=== PATIENT | female | born 1985 | race Asian ===

== ENCOUNTER → 2016-07-27 | Outpatient (CLI) | payer OTHER ==
[~2016-07-27] MED LIST: CEPH500C PO; MULT-506 PO
[2016-07-27 17:37] LABS: BASO % 0.3 %; BASO ABS # 0.03 K/uL (0-0.2); COMPLETE YES; EOS % 5.4 %; HEMATOCRIT 35.9 % (37-47); IG% 0.3 %; LYMPH % 27.7 %; LYMPH ABS # 2.42 K/uL (1.2-3.4); MEAN CELL VOLUME 74.6 fL (80-100); MEAN CORPUSCULAR HEMOGLOBIN 23.9 pg (25-34); MEAN PLATELET VOLUME 10.1 fL (7.4-10.4); MONO % 6.5 %; NEUT % 59.8 %; PLATELET COUNT 323 K/uL (130-400); RED BLOOD COUNT 4.81 M/uL (4.2-5.4); WHITE BLOOD COUNT 8.74 K/uL (4.8-10.8)
[2016-07-27 18:10] LABS: ALT/SGPT 21 U/L (12-78); BLOOD UREA NITROGEN 11 mg/dl (7-18); BUN/CREATININE RATIO 14.7 (10-20); CALCIUM 10.3 mg/dl (8.5-10.1); CARBON DIOXIDE 25 mmol/L (21-32); CHLORIDE 107 mmol/L (98-107); CREATININE 0.74 mg/dl (0.60-1.20); GLUCOSE 84 mg/dl (70-99); SODIUM 141 mmol/L (136-145)
[2016-07-27 18:13] LABS: ALKALINE PHOSPHATASE 112 U/L (45-117); AST/SGOT 15 U/L (15-37)
== END | disposition home or self-care (01) ==
LOC: EDBD 16:39 → C.LAB 16:39
PROVIDERS: ATTEND Nurse Practitioner Adult Health
DX: R10.2 Pelvic and perineal pain (principal)

== ENCOUNTER → 2016-08-16 | Outpatient (CLI) | payer OTHER ==
[2016-08-16 16:54] LABS: URINE APPEARANCE CLEAR (CLEAR); URINE BILIRUBIN NEG (NEG); URINE COLOR YELLOW; URINE EPITHELIAL CELL AUTO >30 /lpf (0-5); URINE NITRITE NEG (NEG); URINE PH 6.5 (4.5-7.5); URINE SPECIFIC GRAVITY 1.019 (1.000-1.030); UROBILINOGEN NEG (NEG)
[2016-08-16 16:58] LABS: MANUAL MICROSCOPIC REQUIRED? NO; REVIEW REQ? NO
== END | disposition home or self-care (01) ==
LOC: C.LAB1850 15:34
PROVIDERS: ATTEND Nurse Practitioner Adult Health
DX: R39.9 Unspecified symptoms and signs involving the genitourinary system (principal)

== ENCOUNTER → 2016-08-30 | Outpatient (CLI) | payer OTHER ==
[2016-08-30 15:42] LABS: URINE APPEARANCE CLEAR (CLEAR); URINE BILIRUBIN NEG (NEG); URINE COLOR YELLOW; URINE NITRITE NEG (NEG); URINE PH 6.5 (4.5-7.5); URINE SPECIFIC GRAVITY 1.017 (1.000-1.030); UROBILINOGEN NEG (NEG)
[2016-08-30 15:45] LABS: MANUAL MICROSCOPIC REQUIRED? YES; REVIEW REQ? NO
[2016-08-30 16:01] LABS: URINE BACTERIA 1+ (NEG); URINE RBC 0-4 /hpf (0-4)
== END | disposition home or self-care (01) ==
LOC: C.LAB1850 14:08
PROVIDERS: ATTEND Nurse Practitioner Adult Health
DX: R39.9 Unspecified symptoms and signs involving the genitourinary system (principal)

== ENCOUNTER → 2016-09-02 | Outpatient (CLI) | payer OTHER | END | disposition home or self-care (01) | LOC: C.LAB1850 10:53 | PROVIDERS: ATTEND Obstetrics & Gynecology | DX: N91.2 Amenorrhea, unspecified (principal) ==

== ENCOUNTER → 2016-09-23 | Outpatient (CLI) | payer OTHER ==
[2016-09-23 16:20] LABS: URINE APPEARANCE CLEAR (CLEAR); URINE BILIRUBIN NEG (NEG); URINE COLOR DK YELLOW; URINE EPITHELIAL CELL AUTO >30 /lpf (0-5); URINE NITRITE NEG (NEG); URINE PH 5.5 (4.5-7.5); URINE SPECIFIC GRAVITY 1.032 (1.000-1.030); UROBILINOGEN NEG (NEG)
[2016-09-23 16:28] LABS: MANUAL MICROSCOPIC REQUIRED? NO; REVIEW REQ? NO
[2016-09-26 23:56] LABS: CHLAMYDIA TRACH RNA*** NOT DETECTED (NOT DETECTED); GC (NEIS GONORRHOEAE)RNA** NOT DETECTED (NOT DETECTED)
== END | disposition home or self-care (01) ==
LOC: C.LABSPEC 15:47
PROVIDERS: ATTEND Obstetrics & Gynecology
DX: Z34.01 Encounter for supervision of normal first pregnancy, first trimester (principal)

== ENCOUNTER → 2016-09-23 | Outpatient (CLI) | payer OTHER ==
[2016-09-23 14:42] LABS: BASO % 0.2 %; BASO ABS # 0.02 K/uL (0-0.2); COMPLETE YES; EOS % 3.7 %; HEMATOCRIT 39.1 % (37-47); IG% 0.2 %; LYMPH % 17.5 %; LYMPH ABS # 1.67 K/uL (1.2-3.4); MEAN CELL VOLUME 75.9 fL (80-100); MEAN CORPUSCULAR HEMOGLOBIN 25.2 pg (25-34); MEAN CORPUSCULAR HGB CONC 33.2 g/dl (32-36); MEAN PLATELET VOLUME 10.8 fL (7.4-10.4); MONO % 4.4 %; PLATELET COUNT 282 K/uL (130-400); RED BLOOD COUNT 5.15 M/uL (4.2-5.4); WHITE BLOOD COUNT 9.55 K/uL (4.8-10.8)
== END | disposition home or self-care (01) ==
LOC: C.LAB1850 12:57
PROVIDERS: ATTEND Obstetrics & Gynecology
DX: Z34.01 Encounter for supervision of normal first pregnancy, first trimester (principal)

== ENCOUNTER → 2016-10-21 | Outpatient (CLI) | payer OTHER | END | disposition home or self-care (01) | LOC: C.LABSPEC 17:22 | PROVIDERS: ATTEND Obstetrics & Gynecology | DX: Z34.01 Encounter for supervision of normal first pregnancy, first trimester (principal) ==

== ENCOUNTER → 2016-11-18 | Outpatient (CLI) | payer OTHER ==
[2016-11-18 17:12] LABS: GTGD 50 Grams
[2016-11-21 14:24] LABS: AFP CONCENTRATION 51.9 NG/ML; AFP MULTIPLE OF MEDIAN 1.58; AFPTS GESTATIONAL AGE 16.4 WEEKS; AFPTS INSULIN DEP DIABETIC? NO; AFPTS MATERNAL WT 164 LBS; ALPHA-FETOPROTEIN RACE OTHER=O; ESTRIOL MULTIPLE OF MEDIAN 0.87; HISTORY OF NTD NO; INHIBIN A 322 PG/ML; INHIBIN A MOM 1.98; REPEAT SAMPLE? NO
== END | disposition home or self-care (01) ==
LOC: C.LAB1850 15:26
PROVIDERS: ATTEND Obstetrics & Gynecology
DX: Z34.02 Encounter for supervision of normal first pregnancy, second trimester (principal)

== ENCOUNTER 2016-11-27 20:32 | Emergency (ER) | payer OTHER ==
[~2016-11-27] VITALS: Ht 165.1 cm; Wt 75.5 kg
[2016-11-27 20:48] VITALS: TEMP 37; Ht 165.1 cm; Wt 75.5 kg
[2016-11-27] MEDS ORDERED: SODIUM CHLORIDE 0.9% 500ML 500 ML IV STA (20:55)
[2016-11-27] MEDS ORDERED: MoRPHine SULFATE 4 MG/ML 1 ML CARP\\VIAL IV STA (20:55)
[2016-11-27] MEDS ORDERED: SODIUM CHLORIDE 0.9% 1000ML 1,000 ML IV STA (20:55)
[2016-11-27] MEDS ORDERED: ONDANSETRON INJ 2 MG/ML 2 ML VIAL IV STA (20:55)
--- NOTE | 2016-11-27 21:07 | EMERGENCY ROOM VISIT NOTE ---
History Report prepared by Yemiibosman: Theo Velazquez Under the Supervision of: Dr. Alysia Gonzalez M.D. First contact with patient: 20:54 Chief Complaint: ABDOMINAL PAIN Stated Complaint: ABD PAIN History of Present Illness The patient is a 30 year old gravid female who presents to the Emergency Room with complaints of persistent abdominal pain since yesterday. The pain moves around between her bilateral lower abdomen and occasionally to the upper abdomen. Pain is rated 8/10 in severity. She has also experienced nausea and vomiting. The patient denies fevers, chest pain, shortness of breath, pain with urination, or vaginal bleeding or discharge. The patient is 4 months , per . She saw her Ob / Label Tacker last month and everything was okay with the . The was in contact with the Ob / Label Tacker over the phone today, who said that they could schedule an appointment for tomorrow or come to the ED tonight. Per , the patient does not drink much water because it makes her vomit. Source of History: patient, spouse/significant other Onset: yesterday Position: abdomen Symptom Intensity: 8/10 Timing: other (persistent) Associated Symptoms: + nausea, + vomiting, No fevers, No chest pain, No SOB , No urinary symptoms Review of Systems See HPI for pertinent positives & negatives. A total of 10 systems reviewed and were otherwise negative. Past Medical & Surgical Medical Problems: (1) Pelvic And Perineal Pain (2) Unsp Symptoms And Signs Involving The Genitourinary System Social History Smoking Status: Never Smoker Marital Status: Housing Status: lives with family Occupation Status: other (housewife) Current/Historical Medications Scheduled Cephalexin Monohydrate (Keflex), 500 MG PO QID Multivitamin (Multivitamin), 1 TAB PO DAILY Allergies Coded Allergies: No Known Allergies (Unverified , 11/27/16) Physical Exam Vital Signs Date Time Temp Pulse Resp B/P (MAP) Pulse Ox O2 Delivery O2 Flow Rate FiO2 11/27/16 23:38 72 18 125/89 98 11/27/16 21:29 93 11/27/16 20:48 37.0 78 16 133/82 100 Room Air Physical Exam Vital signs reviewed. General: Well-appearing female, in no significant distress. HEENT: No scleral icterus, PERRLA, neck supple. Atraumatic. Cardiovascular: Regular rate and rhythm, no extra sounds. Pulmonary: Clear to auscultation bilaterally, normal work of breathing. Abdomen: Obese, suprapubic fullness. Mild right CVA tenderness. Musculoskeletal: Atraumatic, no peripheral edema. Neurologic: Patient awake alert and oriented x 3 Skin: Warm, dry, no rash Medical Decision & Procedures ER Provider Diagnostic Interpretation: Radiology results as stated below per my review and radiologist interpretation: ULTRASOUND LIMITED CLINICAL HISTORY: Generalized abdominal pain. Assess viability. COMPARISON STUDY: No priors. FINDINGS: Real-time, grayscale, and color Doppler transabdominal sonography of the fetus and gravid uterus is performed to assess viability. There is a single live uterine gestation with an estimated heart rate of 143 bpm. The cervix appears closed. The placenta is anterior and normal in appearance. The femoral length measures 2.47 cm, corresponding to an estimated age of 17 weeks 3 days. The amniotic fluid volume is grossly normal. The ovaries were not visualized. IMPRESSION: 1. There is a single live intrauterine gestation with an estimated age of 17 weeks 3 days by femoral length measurement. 2. Note that this does not constitute a dedicated anatomic scan. Follow-up with the patient's snowblower mechanic is recommended. Electronically signed by: Waqas Matthews M.D. 11/27/2016 11:02 PM Dictated Date/Time: 11/27/2016 10:59 PM Laboratory Results 11/27/16 21:15 Red Blood Count 4.36, Mean Corpuscular Volume 78.7, Mean Corpuscular Hemoglobin 26.1, Mean Corpuscular Hemoglobin Concent 33.2, Mean Platelet Volume 9.3, Neutrophils (%) (Auto) 72.3, Lymphocytes (%) (Auto) 17.1, Monocytes (%) (Auto) 6.0, Eosinophils (%) (Auto) 4.0, Basophils (%) (Auto) 0.1, Neutrophils # (Auto) 7.87, Lymphocytes # (Auto) 1.86, Monocytes # (Auto) 0.65, Eosinophils # (Auto) 0.44, Basophils # (Auto) 0.01 11/27/16 21:15 Test 11/27/16 21:08 11/27/16 21:15 Urine Color YELLOW Urine Appearance CLEAR (CLEAR) Urine pH 7.0 (4.5-7.5) Urine Specific Alloway 1.009 (1.000-1.030) Urine Protein NEG (NEG) Urine Glucose (UA) NEG (NEG) Urine Ketones NEG (NEG) Urine Occult Blood NEG (NEG) Urine Nitrite NEG (NEG) Urine Bilirubin NEG (NEG) Urine Urobilinogen NEG (NEG) Urine Leukocyte Esterase LARGE (NEG) Urine WBC (Auto) 10-30 /hpf (0-5) Urine RBC (Auto) 0-4 /hpf (0-4) Urine Hyaline Casts (Auto) 1-5 /lpf (0-5) Urine Epithelial Cells (Auto) >30 /lpf (0-5) Urine Bacteria (Auto) 1+ (NEG) Urine Test POS (NEG) White Blood Count 10.88 K/uL (4.8-10.8) Red Blood Count 4.36 M/uL (4.2-5.4) Hemoglobin 11.4 g/dL (12.0-16.0) Hematocrit 34.3 % (37-47) Mean Corpuscular Volume 78.7 fL (80-100) Mean Corpuscular Hemoglobin 26.1 pg (25-34) Mean Corpuscular Hemoglobin Concent 33.2 g/dl (32-36) Platelet Count 195 K/uL (130-400) Mean Platelet Volume 9.3 fL (7.4-10.4) Neutrophils (%) (Auto) 72.3 % Lymphocytes (%) (Auto) 17.1 % Monocytes (%) (Auto) 6.0 % Eosinophils (%) (Auto) 4.0 % Basophils (%) (Auto) 0.1 % Neutrophils # (Auto) 7.87 K/uL (1.4-6.5) Lymphocytes # (Auto) 1.86 K/uL (1.2-3.4) Monocytes # (Auto) 0.65 K/uL (0.11-0.59) Eosinophils # (Auto) 0.44 K/uL (0-0.5) Basophils # (Auto) 0.01 K/uL (0-0.2) RDW Standard Deviation 45.9 fL (36.4-46.3) RDW Coefficient of Variation 16.1 % (11.5-14.5) Immature Granulocyte % (Auto) 0.5 % Immature Granulocyte # (Auto) 0.05 K/uL (0.00-0.02) Anion Gap 9.0 mmol/L (3-11) Est Creatinine Clear Calc Drug Dose 149.4 ml/min Estimated GFR () 146.2 Estimated GFR (Non- 126.2 BUN/Creatinine Ratio 7.7 (10-20) Calcium Level 10.4 mg/dl (8.5-10.1) Total Bilirubin 0.4 mg/dl (0.2-1) Direct Bilirubin < 0.1 mg/dl (0-0.2) Aspartate Amino Transf (AST/SGOT) 25 U/L (15-37) Alanine Aminotransferase (ALT/SGPT) 42 U/L (12-78) Alkaline Phosphatase 81 U/L (45-117) Total Protein 7.2 gm/dl (6.4-8.2) Albumin 3.2 gm/dl (3.4-5.0) Lipase 178 U/L (73-393) Laboratory results per my review. Medications Administered Medications (Trade) Dose Ordered Sig/Lucio Route Start Time Stop Time Status Last Admin Dose Admin Sodium Chloride 1,000 ml @ 125 mls/hr Q8H STAT IV 11/27/16 20:55 11/28/16 00:38 DC 11/27/16 21:34 125 MLS/HR Sodium Chloride 500 ml @ 999 mls/hr Q31M STAT IV 11/27/16 20:55 11/27/16 21:25 DC 11/27/16 20:55 999 MLS/HR Ondansetron HCl (Zofran Inj) 4 mg NOW STAT IV 11/27/16 20:55 11/27/16 20:57 DC 11/27/16 21:32 4 MG Famotidine (Pepcid Tab) 20 mg NOW ONCE PO 11/27/16 21:15 11/27/16 21:16 DC 11/27/16 21:32 20 MG Cephalexin Monohydrate (Keflex Cap) 500 mg NOW ONCE PO 11/27/16 23:15 11/27/16 23:16 DC 11/27/16 23:37 500 MG ED Course 2049: Past medical records reviewed. The patient was evaluated in room B5. A complete history and physical examination was performed. 2054: Zofran 5 mg IV, Morphine Sulfate 4 mg IV, NSS 500 ml @ 999 mls/hr, NSS 1000 ml @ 125 mls/hr. 2115: Pepcid 20 mg PO, 2315: Upon reevaluation, the patient appeared to have improvement of her symptoms. I discussed findings with her and the . She verbalized agreement of the treatment plan. She was discharged home. Medical Decision Differential Diagnosis: UTI, pyelonephritis, kidney stone, threatened , ovarian cyst, gastritis , peptic ulcer disease, pancreatitis, anxiety. Blood Pressure Screening: Patient was found to have a slightly elevated blood pressure due to circumstances. I do not believe that the patient requires hypertension monitoring. Medication Reconciliation: I attest that I have personally reviewed the patient' s current medication list. This pt was evaluated and appeared to be in no distress. IV access was obtained and lab work was drawn. Pt was placed on the director of cardiac rehabilitation. IVF were initiated. US of fetus reveals a viable IUP at 17 weeks. UA is questionable for infection. Pt was given Po pepcid, zofran and keflex. She is comfortable with plan for close f/u with OBGYN. She will return to the ED for worsening of symptoms or any medical concerns. Impression Primary Impression: UTI (urinary tract infection) Additional Impression: Second trimester Scribe Attestation The scribe's documentation has been prepared under my direction and personally reviewed by me in its entirety. I confirm that the note above accurately reflects all work, treatment, procedures, and medical decision making performed by me. Departure Information Dispostion Home / Self-Care Prescriptions Cephalexin Monohydrate (Keflex) 500 Mg Cap 500 MG PO QID, #28 CAP Prov: Alysia Gonzalez M.D. 11/27/16 Referrals No Doctor, Assigned (PCP) Forms HOME CARE DOCUMENTATION FORM, IMPORTANT VISIT INFORMATION Patient Instructions My [facility] Additional Instructions Diagnosis: UTI and second trimester . Keflex 500 mg 3 times a day for 7 days. Drink plenty of clear fluids. Pepcid 20 mg twice daily as needed for gastritis. Over the counter at the pharmacy. Follow-up with SENIOR ENGINEERING ASSOCIATE this week for reevaluation if symptoms persist. Tylenol 650 mA every 6 hours as needed for pain. Return to the emergency department for worsening of symptoms or any medical concerns. Problem Qualifiers Primary Impression: UTI (urinary tract infection)
[2016-11-27] MEDS ORDERED: FAMOTIDINE 20 MG TAB PO ONE (21:15)
[2016-11-27 21:30] LABS: BASO % 0.1 %; BASO ABS # 0.01 K/uL (0-0.2); COMPLETE YES; HEMATOCRIT 34.3 % (37-47); IG% 0.5 %; LYMPH % 17.1 %; LYMPH ABS # 1.86 K/uL (1.2-3.4); MEAN CELL VOLUME 78.7 fL (80-100); MEAN CORPUSCULAR HEMOGLOBIN 26.1 pg (25-34); MEAN CORPUSCULAR HGB CONC 33.2 g/dl (32-36); MEAN PLATELET VOLUME 9.3 fL (7.4-10.4); NEUT % 72.3 %; PLATELET COUNT 195 K/uL (130-400); RED BLOOD COUNT 4.36 M/uL (4.2-5.4); WHITE BLOOD COUNT 10.88 K/uL (4.8-10.8)
[2016-11-27 21:32] LABS: URINE APPEARANCE CLEAR (CLEAR); URINE BILIRUBIN NEG (NEG); URINE COLOR YELLOW; URINE EPITHELIAL CELL AUTO >30 /lpf (0-5); URINE NITRITE NEG (NEG); URINE SPECIFIC GRAVITY 1.009 (1.000-1.030); UROBILINOGEN NEG (NEG); ZZUR CULT IF INDIC CLEAN CATCH YES
[2016-11-27 21:33] LABS: MANUAL MICROSCOPIC REQUIRED? NO; REVIEW REQ? NO
[2016-11-27 21:46] LABS: ALT/SGPT 42 U/L (12-78); BLOOD UREA NITROGEN 4 mg/dl (7-18); BUN/CREATININE RATIO 7.7 (10-20); CALCIUM 10.4 mg/dl (8.5-10.1); CARBON DIOXIDE 23 mmol/L (21-32); CHLORIDE 107 mmol/L (98-107); CREATININE 0.57 mg/dl (0.60-1.20); GLUCOSE 76 mg/dl (70-99); POTASSIUM 3.6 mmol/L (3.5-5.1); SODIUM 139 mmol/L (136-145)
[2016-11-27 21:48] LABS: ALKALINE PHOSPHATASE 81 U/L (45-117); AST/SGOT 25 U/L (15-37)
[2016-11-27] MEDS ORDERED: MULT-506 PO (22:24)
--- NOTE | 2016-11-27 23:03 | DIAGNOSTIC IMAGING REPORT ---
ULTRASOUND LIMITED CLINICAL HISTORY: Generalized abdominal pain. Assess viability. COMPARISON STUDY: No priors. FINDINGS: Real-time, grayscale, and color Doppler transabdominal sonography of the fetus and gravid uterus is performed to assess viability. There is a single live uterine gestation with an estimated heart rate of 143 bpm. The cervix appears closed. The placenta is anterior and normal in appearance. The femoral length measures 2.47 cm, corresponding to an estimated age of 17 weeks 3 days. The amniotic fluid volume is grossly normal. The ovaries were not visualized. IMPRESSION: 1. There is a single live intrauterine gestation with an estimated age of 17 weeks 3 days by femoral length measurement. 2. Note that this does not constitute a dedicated anatomic scan. Follow-up with the patient's chief safety officer is recommended. Electronically signed by: Waqas Matthews M.D. 11/27/2016 11:02 PM Dictated Date/Time: 11/27/2016 10:59 PM
[2016-11-27] MEDS ORDERED: CEPH500C PO (23:07)
[2016-11-27] MEDS ORDERED: CEPHALEXIN MONOHYDRATE 250 MG CAP PO ONE (23:15)
[2016-11-27 23:38] VITALS: BP 125/89; PULSE 72; O2SAT 98
== END 2016-11-27 23:40 | disposition home or self-care (01) ==
LOC: C.EDB 20:33
DX: N39.0 Urinary tract infection, site not specified (principal); Z3A.17 17 weeks gestation of pregnancy

== ENCOUNTER → 2017-02-07 | Outpatient (CLI) | payer OTHER ==
[2017-02-07 17:03] LABS: GTGD 50 Grams
[2017-02-07 18:51] LABS: URINE APPEARANCE CLEAR (CLEAR); URINE BILIRUBIN NEG (NEG); URINE COLOR YELLOW; URINE NITRITE NEG (NEG); URINE SPECIFIC GRAVITY 1.013 (1.000-1.030); UROBILINOGEN NEG (NEG)
[2017-02-07 18:52] LABS: MANUAL MICROSCOPIC REQUIRED? NO; REVIEW REQ? NO
== END | disposition home or self-care (01) ==
LOC: C.LAB1850 15:56
PROVIDERS: ATTEND Obstetrics & Gynecology
DX: Z34.03 Encounter for supervision of normal first pregnancy, third trimester (principal)

== ENCOUNTER 2017-02-27 15:33 | Outpatient (CLI) | payer OTHER ==
[2017-02-27 16:38] LABS: BASO % 0.1 %; BASO ABS # 0.01 K/uL (0-0.2); EOS % 1.5 %; HEMATOCRIT 37.5 % (37-47); IG% 0.4 %; LYMPH % 19.6 %; LYMPH ABS # 1.92 K/uL (1.2-3.4); MEAN CELL VOLUME 79.6 fL (80-100); MEAN CORPUSCULAR HEMOGLOBIN 26.3 pg (25-34); MEAN PLATELET VOLUME 10.3 fL (7.4-10.4); MONO % 5.6 %; NEUT % 72.8 %; PLATELET COUNT 167 K/uL (130-400); RED BLOOD COUNT 4.71 M/uL (4.2-5.4)
[2017-02-27] MEDS ORDERED: LACTATED RINGER'S 1000ML 1,000 ML IV SCH (16:45)
[2017-02-27] MEDS ORDERED: NIFEdipine 10 MG CAP PO STA ×3 (16:46→18:56)
[2017-02-27] MEDS ORDERED: NIFEdipine 10 MG CAP ONE ×3 (16:47→18:56)
[2017-02-27] MEDS ORDERED: MAGNESIUM SULFATE / WTR 1,000 ML IV ONE (16:50)
[2017-02-27] MEDS ORDERED: MAGNESIUM SULFATE 4GM / WTR 100ML IV ONE (17:00)
[2017-02-27 17:06] LABS: ALB/GLOB RATIO 0.6 (0.9-2); ALKALINE PHOSPHATASE 126 U/L (45-117); ALT/SGPT 16 U/L (12-78); AST/SGOT 20 U/L (15-37); BLOOD UREA NITROGEN 10 mg/dl (7-18); BUN/CREATININE RATIO 13.9 (10-20); CALCIUM 9.5 mg/dl (8.5-10.1); CARBON DIOXIDE 19 mmol/L (21-32); CHLORIDE 111 mmol/L (98-107); CREATININE 0.71 mg/dl (0.60-1.20); GLUCOSE 72 mg/dl (70-99); POTASSIUM 3.3 mmol/L (3.5-5.1); SODIUM 140 mmol/L (136-145)
[2017-02-27] MEDS ORDERED: MAGNESIUM SULFATE 40GM / WTR 1000 ML IV SCH (17:30)
[2017-02-27 17:54] LABS: COMPLETE YES; MEAN CORPUSCULAR HGB CONC 33.1 g/dl (32-36)
[2017-02-27] MEDS ORDERED: IV FLUIDS COMPLETED PRN (18:15)
[2017-02-28] MEDS ORDERED: IV FLUIDS COMPLETED PRN (10:30)
== END 2017-02-27 19:22 | disposition short-term general hospital (02) ==
LOC: C.LD 15:33 → C.OPB 15:33
PROVIDERS: ATTEND Obstetrics & Gynecology
DX: O99.89 Other specified diseases and conditions complicating pregnancy, childbirth and the puerperium (principal); R03.0 Elevated blood-pressure reading, without diagnosis of hypertension; O12.13 Gestational proteinuria, third trimester; Z3A.30 30 weeks gestation of pregnancy

== ENCOUNTER → 2017-07-24 | Outpatient (CLI) | payer OTHER ==
[~2017-07-24] MED LIST changes: -CEPH500C PO
[2017-07-28 15:30] LABS: MICROSOMAL AB 5 IU/ML (<9); TESTOSTERONE,TOTAL 11 ng/dL (2-45)
== END | disposition home or self-care (01) ==
LOC: C.LAB1850 17:10
PROVIDERS: ATTEND Dermatology
DX: L65.9 Nonscarring hair loss, unspecified (principal)

== ENCOUNTER → 2017-08-01 | Outpatient (CLI) | payer OTHER ==
[2017-08-01 14:48] LABS: BASO % 0.3 %; BASO ABS # 0.02 K/uL (0-0.2); EOS % 8.1 %; EOS ABS # 0.54 K/uL (0-0.5); HEMATOCRIT 37.8 % (37-47); IG# 0.01 K/uL (0.00-0.02); LYMPH % 24.6 %; LYMPH ABS # 1.64 K/uL (1.2-3.4); MEAN CELL VOLUME 80.1 fL (80-100); MEAN CORPUSCULAR HEMOGLOBIN 27.5 pg (25-34); MEAN CORPUSCULAR HGB CONC 34.4 g/dl (32-36); MEAN PLATELET VOLUME 9.8 fL (7.4-10.4); MONO % 5.5 %; MONO ABS # 0.37 K/uL (0.11-0.59); NEUT % 61.4 %; PLATELET COUNT 259 K/uL (130-400); RED CELL DISTRIBUTION WIDTH CV 14.4 % (11.5-14.5); RED CELL DISTRIBUTION WIDTH SD 41.6 fL (36.4-46.3); WHITE BLOOD COUNT 6.68 K/uL (4.8-10.8)
[2017-08-01 15:23] LABS: ALBUMIN 4.1 gm/dl (3.4-5.0); ALT/SGPT 27 U/L (12-78); BLOOD UREA NITROGEN 18 mg/dl (7-18); CALCIUM 9.8 mg/dl (8.5-10.1); CARBON DIOXIDE 27 mmol/L (21-32); CREATININE 0.68 mg/dl (0.60-1.20); GLUCOSE 86 mg/dl (70-99); POTASSIUM 3.7 mmol/L (3.5-5.1); SODIUM 139 mmol/L (136-145)
[2017-08-01 15:33] LABS: ALKALINE PHOSPHATASE 89 U/L (45-117); AST/SGOT 16 U/L (15-37); TOTAL PROTEIN 7.4 gm/dl (6.4-8.2); TRANSFERRIN 265 mg/dl (200-360)
[2017-08-05 15:37] LABS: ANA SCREEN TC 249X NEGATIVE (NEGATIVE); TESTOSTERONE,TOTAL 11 ng/dL (2-45)
== END | disposition home or self-care (01) ==
LOC: C.LAB1850 13:30
PROVIDERS: ATTEND Nurse Practitioner Adult Health
DX: L65.9 Nonscarring hair loss, unspecified (principal)

== ENCOUNTER 2019-02-19 05:54 | Inpatient (IN) ==
--- NOTE | 2019-02-07 10:22 | Anesthesiology Consultation ---
Date of Service February 07, 2019 Assessment & Plan (1) Encounter for pre-operative examination: - Primary language: Nepali. Patient declined university extension specialist for PAT visit done 02/07/19 (additional information obtained from patient's ). Discussed option for university extension specialist AM day of c/s. Patient declines but is aware option if available if she wishes (L&D made aware). - ASA instructions: per patient, not advised to discontinue prior to c/s (she states she will confirm this with OB at next appointment). Chart Review Chart Review: Acceptable Risk for Surgery (pending labs) and Patient seen in Pre Admission Testing Teaching & Discussion Pre-Anesthesia Teaching/Discussion Notes: Instructed NPO after midnight before surgery,except medications with 15 cc of water. Medication instructions provided according to the PAT guidelines. History Surgery Operation Date: 02/19/19 07:30 Proposed Procedures p Section - Nick Fragoso MD Height/Weight Height: 4 ft 11.06 in Weight: 83.9 kg Allergies Allergy/AdvReac Type Severity Reaction Status Date / Time No Known Allergies Allergy Unverified 02/06/19 14:53 Medications Home Medications Medication Instructions Recorded Confirmed Last Taken aspirin 81 mg PO DAILY 02/06/19 02/06/19 Unknown multivitamin 1 tab PO QAM 02/06/19 02/06/19 Unknown Past Medical History Medical History Pre-eclampsia hx on ASA Exercise / Class Metabolic Activity III < 4 Walking/Shop/Light housework Past Surgical History Surgical History History of adenoidectomy Previous section 2017 (emergent)- ?spinal vs. epidural: good pain control Past Anesthesia History No Hx of Anesthesia Complications and No Family Hx of Anesthesia Complications History of PONV No Hx of PONV and No Hx of Motion Sickness Social History Smoking Status: Never smoker Do You Dip or Chew Tobacco: No Hx Alcohol Use: No Hx Substance Use: No substance use type: does not use Review of Systems Patient denies chest pain, shortness of breath, cough, wheezing, palpitations. Physical Exam Vital Signs VITALS BP 109/75 P 79 TEMP 98.1 SP02 97%RA RESP 18 PHYSICAL Full neck and c-spine range of motion. Full TMJ range of motion. TMD 3.5 finger breaths Mallampati Score 3 Dentition: intact Lungs: clear throughout to auscultation Cardiac: regular rate and rhythm, no murmurs noted Spine: normal Extremities: no edema
[2019-02-07 12:41] LABS: Appearance Urine Clear (Clear); Bacteria Urine Automated 1+ (Negative); Bilirubin Urine Negative (Negative); Blood Urine Negative (Negative); Color Urine Yellow; Epithelial Cell Urine Auto >30 /lpf (0-5); Glucose Urine UA Negative (Negative); Ketones Urine Negative (Negative); Leukocyte Esterase Urine 1+ (Negative); Nitrite Urine Negative (Negative); Protein Urine Trace (Negative); RBC Urine Automated 0-4 /hpf (0-4); Specific Gravity Urine 1.016 (1.000-1.030); Urobilinogen Urine Negative (Negative); pH Urine 6.5 (4.5-7.5)
[2019-02-07 12:50] LABS: Basophils # (auto) 0.01 K/uL (0-0.2); Basophils % (auto) 0.1 %; Eosinophils # (auto) 0.18 K/uL (0-0.5); Hematocrit (blood only) 32.2 % (37-47); Hemoglobin 10.6 g/dL (12.0-16.0); Immature Granulocytes # (auto) 0.04 K/uL (0.00-0.02); Immature Granulocytes % (auto) 0.4 %; Lymphocytes # (auto) 1.36 K/uL (1.2-3.4); Lymphocytes % (auto) 14.9 %; Mean Corpuscular Hgb Conc 32.9 g/dL (32-36); Mean Corpuscular Volume 82.1 fL (80-100); Mean Platelet Volume 9.9 fL (7.4-10.4); Monocytes # (auto) 0.53 K/uL (0.11-0.59); Monocytes % (auto) 5.8 %; Neutrophils # (auto) 7.02 K/uL (1.4-6.5); Neutrophils % (auto) 76.8 %; Platelet Count 159 K/uL (130-400); RDW Coefficient of Variation 16.4 % (11.5-14.5); RDW Standard Deviation 49.2 fL (36.4-46.3); Red Blood Count 3.92 M/uL (4.2-5.4); White Blood Count 9.14 K/uL (4.8-10.8)
[2019-02-19] MEDS ORDERED: LACTATED RINGER'S 1,000 ML IV SCH ×5 (06:00→17:45)
[2019-02-19] MEDS ORDERED: CITRIC ACID/SODIUM CITRATE 15 ML UDC PO SCH (06:00)
[2019-02-19] MEDS ORDERED: CEFAZOLIN 2000MG 2,000 MG/15 ML SYR IV SCH (06:00)
[2019-02-19 06:27] LABS: Basophils # (auto) 0.01 K/uL (0-0.2); Basophils % (auto) 0.1 %; Eosinophils # (auto) 0.16 K/uL (0-0.5); Eosinophils % (auto) 2.1 %; Hematocrit (blood only) 34.3 % (37-47); Hemoglobin 11.4 g/dL (12.0-16.0); Immature Granulocytes # (auto) 0.04 K/uL (0.00-0.02); Immature Granulocytes % (auto) 0.5 %; Lymphocytes # (auto) 1.37 K/uL (1.2-3.4); Lymphocytes % (auto) 18.1 %; Mean Corpuscular Hemoglobin 27.5 pg (25-34); Mean Corpuscular Hgb Conc 33.2 g/dL (32-36); Mean Corpuscular Volume 82.9 fL (80-100); Mean Platelet Volume 9.7 fL (7.4-10.4); Monocytes # (auto) 0.48 K/uL (0.11-0.59); Monocytes % (auto) 6.3 %; Neutrophils # (auto) 5.51 K/uL (1.4-6.5); Neutrophils % (auto) 72.9 %; Platelet Count 141 K/uL (130-400); RDW Coefficient of Variation 16.8 % (11.5-14.5); RDW Standard Deviation 50.9 fL (36.4-46.3); Red Blood Count 4.14 M/uL (4.2-5.4); White Blood Count 7.57 K/uL (4.8-10.8)
[2019-02-19] MEDS ORDERED: OXYTOCIN 10 UNITS/ML VIAL ONE ×2 (07:20→08:22)
[2019-02-19] MEDS ORDERED: fentaNYL citrate 100 MCG/2 ML VIAL ONE (07:24)
[2019-02-19] MEDS ORDERED: MoRPHine SULFATE PF 1 MG/ML 10 ML AMP/VIAL ONE (07:25)
--- NOTE | 2019-02-19 07:29 | History & Physical Bridge Note ---
Date of Service February 19, 2019 History & Physical Bridge Note I have examined the patient, reviewed the History & Physical and in the interval since the performance of the History & Physical I have noted the following changes of clinical significance: no changes noted
[2019-02-19] MEDS ORDERED: PHENYLEPHRINE 100MCG/ML 5ML SYR ONE (08:00)
--- NOTE | 2019-02-19 08:58 | Post Operative Brief Note ---
Immediate Post Op Note v1 Date of Surgery February 19, 2019 Pre & Post Diagnosis Operation Date: 02/19/19 07:30 Pre-Op Diagnosis: desires repeat section declines vaginal after section Post-Op Diagnosis: low transverse section for live female delivered at 0805 Procedure Operation Date: 02/19/19 07:30 Actual Procedures p Section in LD - Nick Fragoso MD Surgeon Nick Fragoso MD Data Conversion Analyst TAZ Orellana Estimated Blood Loss 600 Findings Consistent with Post-Op Diagnosis Fluids 1600 ml Drains Cochran Catheter (inserted without difficulty for immediate return of clear yellow urine) Anesthesia Type Spinal Complications none Disposition Accompanied Patient To Recovery: Yes Disposition: L&D Overlapping Procedure I was present for: the critical portions of procedure. (I WAS PRESENT FOR THE ENTIRE CASE)
[2019-02-19] MEDS ORDERED: LACTATED RINGER'S 500 ML IV PRN (09:02)
[2019-02-19] MEDS ORDERED: HYDROCORTISONE ACETATE 25 MG SUPP PR PRN (09:02)
[2019-02-19] MEDS ORDERED: ONDANSETRON INJ 2 MG/ML 2 ML VIAL IV PRN (09:02)
[2019-02-19] MEDS ORDERED: DIPHTHERIA/TETANUS/PERTUSSIS 0.5 ML SYR/VIAL IM ONE (09:02)
[2019-02-19] MEDS ORDERED: SENNA 8.6 MG TAB PO PRN (09:02)
[2019-02-19] MEDS ORDERED: SUPERCREAM 0.870% 15 GM JAR EXT PRN (09:02)
[2019-02-19] MEDS ORDERED: MAGNESIUM HYDROXIDE SUSP 30 ML UDC PO PRN (09:02)
[2019-02-19] MEDS ORDERED: ePHEDrine sulfate 50 MG/ML AMP IV PRN (09:02)
[2019-02-19] MEDS ORDERED: NALBUPHINE HCL INJ 10 MG/ML AMP IV PRN (09:02)
[2019-02-19] MEDS ORDERED: MoRPHine SULFATE PF 1 MG/ML 10 ML AMP/VIAL INT SPINAL ONE (09:02)
[2019-02-19] MEDS ORDERED: PROMETHAZINE HCL 25 MG in SODIUM CHLORIDE 0.9% 50 ML IV PRN (09:02)
[2019-02-19] MEDS ORDERED: NALOXONE HCL 1 MG in SODIUM CHLORIDE 0.9% 1000ML 1,000 ML IV PRN (09:02)
[2019-02-19] MEDS ORDERED: NALOXONE HCL 0.4 MG/1 ML VIAL/CARP IV PRN (09:02)
[2019-02-19] MEDS ORDERED: DiphenhydrAMINE HCL 50 MG/ML VIAL IV PRN (09:02)
[2019-02-19] MEDS ORDERED: BENZOCAINE 20% AER SPR 82.5 GM CAN EXT PRN (09:02)
[2019-02-19] MEDS ORDERED: NALOXONE HCL 0.08 MG in SYRINGE 1.8 ML IV PRN (09:02)
[2019-02-19] MEDS ORDERED: NO NARCOTICS OR SEDATIVES SCH (09:15)
[2019-02-19] MEDS ORDERED: DC INTRASPINAL MORPHINE SCH (09:15)
[2019-02-19] MEDS ORDERED: SODIUM CHLORIDE 0.9% 1000ML 1,000 ML IV SCH (09:15)
--- NOTE | 2019-02-19 09:59 | Operative Report ---
DATE OF OPERATION: 02/19/2019 PREOPERATIVE DIAGNOSES: The patient is a 33-year-old G2, P0-1-0-1 at 39.4 weeks of gestation with a prior history of . Declines TOLAC/, desires elective repeat . POSTOPERATIVE DIAGNOSES: The patient is a 33-year-old G2, P0-1-0-1 at 39.4 weeks of gestation with a prior history of . Declines TOLAC/, desires elective repeat . PROCEDURE: Repeat low transverse with a Pfannenstiel skin incision and delivery of viable female infant. SURGEON: Nick Fragoso MD BOBBIN CLEANER: TAZ Orellana. ESTIMATED BLOOD LOSS: 600 mL. FLUIDS: 1600 mL of lactated Ringer. DRAINS: Cochran catheter drained 300 mL of clear urine. ANESTHESIA: Spinal. ANESTHESIOLOGIST: Dr. Pratt. COMPLICATIONS: None. FINDINGS: Baby was a viable female delivered at 8:05 a.m. in cephalic presentation, Apgars were 9/9, weight was 3270 grams. Maternal findings, normal uterus, fallopian tubes and ovaries. There were mild adhesions between the omentum and the anterior abdominal wall and to the left uterine cornua. The lower uterine segment was thin and found to have a small, about 2 x 2 cm, window covered with visceral peritoneum of the uterus on the right corner of the prior old scar/incision . DESCRIPTION OF PROCEDURE: The patient was taken to the operating room where spinal anesthesia was given without difficulty. She was placed in dorsal lithotomy position in a leftward tilt, prepared and draped in usual sterile fashion. A Pfannenstiel skin incision was made from the old/ prior incision and it was carried through underlying layer of fascia with the Bovie. Fascia was incised in the midline and incision was extended laterally with the help of Ramirez scissors. Upper aspect of the fascial incision was then grasped with 2 Carlito clamps, elevated, underlying rectus muscle dissected off sharply with Ramirez scissors and the lower aspect of the fascial incision was grasped with 2 Carlito clamps, elevated. Underlying rectus muscles were dissected off sharply with Ramirez scissors and the rectus muscles were in the midline. Peritoneum was identified, entered bluntly with fingers. Peritoneal incision was extended superiorly and inferiorly with good visualization of the bladder and omentum and the bladder blade was inserted. Lower uterine segment was thinned as described above. Vesicouterine peritoneum was identified, elevated with pickups, entered sharply with Metzenbaum scissors, and the bladder flap was created digitally and bladder blade was reinserted. Lower uterine segment was incised in transverse fashion. The incision was extended laterally with the help of fingers. Membranes were ruptured. Clear fluid was obtained. Baby's head was delivered without difficulty. Shoulders were delivered with minimal traction and mouth and nose were suctioned. Cord was clamped x2 and cut at 1-minute delay and baby was handed to the awaiting bag loader machine operator, Dr. Dallas. Cord blood was obtained. The placenta was delivered manually as intact and complete. Uterus was exteriorized, cleared of all clots and debris. Uterine incision was repaired with 0 Vicryl in a running locked fashion and a second imbricating layer was placed with 0 Vicryl in a running fashion. Excellent hemostasis was achieved. The cul-de-sac was irrigated with warm normal saline and suctioned and the patient's ovaries and fallopian tubes were checked to be normal and then the uterus was returned to the abdomen. The anterior cul-de-sac was irrigated with warm normal saline and suctioned. Incision was checked to be again hemostatic. Parietal peritoneum was reapproximated with 3-0 Vicryl in a running fashion and rectus muscles were reapproximated with the same suture in a running fashion. Excellent hemostasis was achieved on the muscle and the fascia under the fascia and the rectus fascia was closed with 0 Vicryl starting from both corners meeting in the midline. Subcuticular fat tissue was brought together with 3-0 Vicryl in a running fashion. Skin was closed with 4-0 Monocryl in a subcuticular fashion. The patient tolerated the procedure well. Sponge, lap, needle count was correct x3. No complications happened. I was and TAZ Orellana, was present during whole procedure. She was taken to recovery room in stable condition. I attest to the content of the Intraoperative Record and any orders documented therein. Any exceptions are noted below. RILEY
[2019-02-19] MEDS: KETOROLAC 30 MG/ML VIAL IV PRN ×2 (11:17→20:43)
[2019-02-19] MEDS: OXYTOCIN 20 UNITS in LACTATED RINGER'S 1,000 ML IV SCH ×2 (11:34→20:51)
[2019-02-19] MEDS ORDERED: HYDROmorphone INJ 0.5 MG/0.5 ML SYR IV PRN (14:01)
[2019-02-19] MEDS ORDERED: LACTATED RINGER'S 1,000 ML IV ONE (16:09)
--- NOTE | 2019-02-19 16:49 | Anesthesiology Progress Note ---
Date of Service February 19, 2019 Anesthesia Post Procedure Vital Signs Vital Signs: Temp Pulse Pulse Resp BP BP Pulse Ox 02/19/19 15:30 18 100 02/19/19 14:26 18 100 02/19/19 13:30 36.5 C 73 18 120/74 100 02/19/19 12:30 71 18 101/65 99 02/19/19 11:30 36.7 C 61 18 109/74 100 02/19/19 11:23 66 100 02/19/19 11:18 68 100 02/19/19 11:13 72 122/75 100 02/19/19 11:10 18 02/19/19 11:08 76 100 02/19/19 11:03 77 100 02/19/19 10:58 72 99 02/19/19 10:53 68 100 02/19/19 10:48 70 100 02/19/19 10:43 78 100 02/19/19 10:40 18 02/19/19 10:39 69 117/67 02/19/19 10:38 70 100 02/19/19 10:33 77 100 02/19/19 10:28 64 100 02/19/19 10:23 74 100 02/19/19 10:18 71 100 02/19/19 10:13 65 100 02/19/19 10:12 76 115/69 02/19/19 10:10 36.5 C 18 02/19/19 10:08 63 99 02/19/19 10:03 69 98 02/19/19 10:02 70 115/64 02/19/19 10:00 18 02/19/19 09:58 62 98 02/19/19 09:53 62 98 02/19/19 09:52 62 114/62 02/19/19 09:50 18 02/19/19 09:48 60 99 02/19/19 09:43 59 L 97 02/19/19 09:42 65 118/66 02/19/19 09:40 18 02/19/19 09:38 68 98 02/19/19 09:33 67 96 02/19/19 09:32 58 L 114/65 02/19/19 09:30 18 02/19/19 09:28 68 98 02/19/19 09:23 62 97 02/19/19 09:22 63 110/63 02/19/19 09:20 18 02/19/19 09:18 64 97 02/19/19 09:13 68 108/62 99 02/19/19 09:10 36.3 C L 18 02/19/19 09:08 62 98 02/19/19 09:03 66 98 02/19/19 09:02 68 118/71 02/19/19 07:15 37.2 C 18 02/19/19 06:49 78 18 125/77 02/19/19 06:20 87 140/89 02/19/19 06:08 37.0 C 18 Pain Intensity Lower Abdomen: Pain Intensity: 6 Transfer of Care Handoff Completed per policy Notes Mental Status: alert / awake / arousable Patient Amnestic to Procedure: Yes Nausea / Vomiting: adequately controlled Pain: adequately controlled Airway Patency, RR, SpO2: stable & adequate BP & HR: stable & adequate Hydration State: stable & adequate Neuraxial Anesthesia: was administered and sensory block is resolving Anesthetic Complications: no major complications apparent
[2019-02-19] MEDS: SIMETHICONE 80 MG CHEW PO SCH ×2 (17:03→20:45)
--- NOTE | 2019-02-19 17:03 | Obstetrical Progress Note ---
Date of Service February 19, 2019 Subjective Postop check UOP was borderline Patient is seen and examined Feels well, just tired Pain is under control with meds Nausea but no vomiting She has not been drinking much No CP/ SOB/ Dizziness/ V/ VB/ Leg pain Not OOB yet Explained about the surgery and findings Vital Signs Temp Pulse Pulse Resp BP BP Pulse Ox 02/19/19 15:30 18 100 02/19/19 14:26 18 100 02/19/19 13:30 36.5 C 73 18 120/74 100 02/19/19 12:30 71 18 101/65 99 02/19/19 11:30 36.7 C 61 18 109/74 100 02/19/19 11:23 66 100 02/19/19 11:18 68 100 02/19/19 11:13 72 122/75 100 02/19/19 11:10 18 02/19/19 11:08 76 100 02/19/19 11:03 77 100 02/19/19 10:58 72 99 02/19/19 10:53 68 100 02/19/19 10:48 70 100 02/19/19 10:43 78 100 02/19/19 10:40 18 02/19/19 10:39 69 117/67 02/19/19 10:38 70 100 02/19/19 10:33 77 100 02/19/19 10:28 64 100 02/19/19 10:23 74 100 02/19/19 10:18 71 100 02/19/19 10:13 65 100 02/19/19 10:12 76 115/69 02/19/19 10:10 36.5 C 18 02/19/19 10:08 63 99 02/19/19 10:03 69 98 02/19/19 10:02 70 115/64 02/19/19 10:00 18 02/19/19 09:58 62 98 02/19/19 09:53 62 98 02/19/19 09:52 62 114/62 02/19/19 09:50 18 02/19/19 09:48 60 99 02/19/19 09:43 59 L 97 02/19/19 09:42 65 118/66 02/19/19 09:40 18 02/19/19 09:38 68 98 02/19/19 09:33 67 96 02/19/19 09:32 58 L 114/65 02/19/19 09:30 18 02/19/19 09:28 68 98 02/19/19 09:23 62 97 02/19/19 09:22 63 110/63 02/19/19 09:20 18 02/19/19 09:18 64 97 02/19/19 09:13 68 108/62 99 02/19/19 09:10 36.3 C L 18 02/19/19 09:08 62 98 02/19/19 09:03 66 98 02/19/19 09:02 68 118/71 02/19/19 07:15 37.2 C 18 02/19/19 06:49 78 18 125/77 02/19/19 06:20 87 140/89 02/19/19 06:08 37.0 C 18 Intake & Output 02/19/19 02/19/19 02/19/19 06:59 14:59 22:59 Intake Total 566.1 / 566.1 433.9 / 433.9 Output Total 1000 / 1075 75 / 1075 Balance 566.1 / 566.1 -566.1 / -641.1 -75 / -641.1 Weight 85 kg 85 kg Intake: IV 566.1 / 566.1 433.9 / 433.9 Lr 1,000 ml @ 999 mls/hr IV . 566.1 / 566.1 433.9 / 433.9 Q1H1M [facility] Rx#:[id number] Output: Estimated Blood Loss 600 / 600 Urine Amount (Catheter) 400 / 475 75 / 475 Horton/Indwelling 400 / 475 75 / 475 PE: General: Alert, orientedx3, NAD CVS: S1S2 RRR Lungs: CTAB Abd: soft, NT, BS+, Dressing C/D/I, fundus firm , below U No VB Ext: NT, no edema, SCD's on AP: 33 yo female s/p RLTCS , pod#0 VSS Afebrile doing well Continue to routine postop care IVF bolus Encourage PO intake, may ambulate D/C horton in am Results & Data Vital Signs (Past 12 Hours) Vital Signs Temp Pulse Pulse Resp BP BP Pulse Ox 02/19/19 15:30 18 100 02/19/19 14:26 18 100 02/19/19 13:30 36.5 C 73 18 120/74 100 02/19/19 12:30 71 18 101/65 99 02/19/19 11:30 36.7 C 61 18 109/74 100 02/19/19 11:23 66 100 02/19/19 11:18 68 100 02/19/19 11:13 72 122/75 100 02/19/19 11:10 18 02/19/19 11:08 76 100 02/19/19 11:03 77 100 02/19/19 10:58 72 99 02/19/19 10:53 68 100 02/19/19 10:48 70 100 02/19/19 10:43 78 100 02/19/19 10:40 18 02/19/19 10:39 69 117/67 02/19/19 10:38 70 100 02/19/19 10:33 77 100 02/19/19 10:28 64 100 02/19/19 10:23 74 100 02/19/19 10:18 71 100 02/19/19 10:13 65 100 02/19/19 10:12 76 115/69 02/19/19 10:10 36.5 C 18 02/19/19 10:08 63 99 02/19/19 10:03 69 98 02/19/19 10:02 70 115/64 02/19/19 10:00 18 02/19/19 09:58 62 98 02/19/19 09:53 62 98 02/19/19 09:52 62 114/62 02/19/19 09:50 18 02/19/19 09:48 60 99 02/19/19 09:43 59 L 97 02/19/19 09:42 65 118/66 02/19/19 09:40 18 02/19/19 09:38 68 98 02/19/19 09:33 67 96 02/19/19 09:32 58 L 114/65 02/19/19 09:30 18 02/19/19 09:28 68 98 02/19/19 09:23 62 97 02/19/19 09:22 63 110/63 02/19/19 09:20 18 02/19/19 09:18 64 97 02/19/19 09:13 68 108/62 99 02/19/19 09:10 36.3 C L 18 02/19/19 09:08 62 98 02/19/19 09:03 66 98 02/19/19 09:02 68 118/71 02/19/19 07:15 37.2 C 18 02/19/19 06:49 78 18 125/77 02/19/19 06:20 87 140/89 02/19/19 06:08 37.0 C 18
[2019-02-19] MEDS: LACTATED RINGER'S 1,000 ML IV SCH (17:37)
[2019-02-19] MEDS: DOCUSATE SODIUM 100 MG CAP PO SCH (20:45)
[2019-02-20] MEDS ORDERED: DiphenhydrAMINE HCL 50 MG/ML VIAL IV PRN (03:03)
[2019-02-20] MEDS ORDERED: ONDANSETRON INJ 2 MG/ML 2 ML VIAL IV PRN (03:03)
[2019-02-20] MEDS ORDERED: KETOROLAC 30 MG/ML VIAL IV PRN (03:03)
[2019-02-20] MEDS ORDERED: PROMETHAZINE HCL 25 MG in SODIUM CHLORIDE 0.9% 50 ML IV PRN (03:03)
[2019-02-20] MEDS: OXYCODONE/ACETAMINOPHEN 5mg/325mg TAB PO PRN ×4 (04:14→20:08)
[2019-02-20] MEDS: IBUPROFEN 600 MG TAB PO PRN ×4 (04:15→20:08)
[2019-02-20] MEDS: LACTATED RINGER'S 1,000 ML IV SCH (04:17)
[2019-02-20 07:20] LABS: Basophils # (auto) 0.01 K/uL (0-0.2); Basophils % (auto) 0.1 %; Eosinophils # (auto) 0.19 K/uL (0-0.5); Eosinophils % (auto) 2.4 %; Hemoglobin 9.5 g/dL (12.0-16.0); Immature Granulocytes # (auto) 0.03 K/uL (0.00-0.02); Immature Granulocytes % (auto) 0.4 %; Lymphocytes # (auto) 0.87 K/uL (1.2-3.4); Lymphocytes % (auto) 10.9 %; Mean Corpuscular Hemoglobin 27.5 pg (25-34); Mean Corpuscular Hgb Conc 32.8 g/dL (32-36); Mean Corpuscular Volume 84.1 fL (80-100); Mean Platelet Volume 9.8 fL (7.4-10.4); Monocytes # (auto) 0.55 K/uL (0.11-0.59); Monocytes % (auto) 6.9 %; Neutrophils # (auto) 6.33 K/uL (1.4-6.5); Neutrophils % (auto) 79.3 %; Platelet Count 127 K/uL (130-400); Red Blood Count 3.45 M/uL (4.2-5.4); White Blood Count 7.98 K/uL (4.8-10.8)
[2019-02-20] MEDS: PRENATAL VITAMIN 1 TAB PO SCH (07:39)
[2019-02-20] MEDS: SIMETHICONE 80 MG CHEW PO SCH ×4 (07:39→20:08)
[2019-02-20] MEDS: DOCUSATE SODIUM 100 MG CAP PO SCH ×2 (07:39→20:08)
[2019-02-20] MEDS: FERROUS SULFATE 325 MG TAB PO SCH (07:39)
--- NOTE | 2019-02-20 07:55 | Obstetrical Progress Note ---
Date of Service February 20, 2019 Physical Exam Physical Exam: abdomen soft and non tender vaginal bleeding scant to moderate hgb 9.5 no calf tenderness good bowel sounds bandage is dry Results & Data Vital Signs (Past 12 Hours) Vital Signs Temp Pulse Resp BP Pulse Ox 02/20/19 04:00 36.5 C 74 16 111/75 99 02/20/19 03:20 16 100 02/20/19 02:30 16 99 02/20/19 01:05 14 98 02/19/19 23:20 36.6 C 72 16 103/69 99 02/19/19 22:15 18 99 02/19/19 20:55 16 99 02/19/19 20:00 16 100
--- NOTE | 2019-02-20 11:05 | Anesthesiology Progress Note ---
Date of Service February 20, 2019pt' is s/p CSec from 02/19/19. Pt had SAB. Pt is stable,ambulating , w/o c/o H/A and w/o c/o neurologic deficits. Pt is satisfied w/ anesthetic care. Physical Exam Vital Signs: Last Vital Signs Temp 36.3 C L 02/20/19 07:52 Pulse 69 02/20/19 07:52 Resp 18 02/20/19 07:52 BP 113/71 02/20/19 07:52 Pulse Ox 98 02/20/19 07:52 Results & Data Medications Administered Docusate Sodium (Colace) 100 mg PO DAILY@08,21 SUSIE Stop: 03/21/19 20:59 Last Admin: 02/20/19 07:39 Dose: 100 mg Documented by: [id number] Admin: 02/19/19 20:45 Dose: 100 mg Documented by: [id number] Ferrous Sulfate (Feosol) 325 mg PO DAILY@08 SUSIE Stop: 03/22/19 07:59 Last Admin: 02/20/19 07:39 Dose: 325 mg Documented by: [id number] Hydromorphone HCl (Dilaudid) 0.25 mg IV Q15M PRN PRN Reason: Pain Stop: 03/05/19 14:00 Last Admin: 02/19/19 14:13 Dose: 0.25 mg Documented by: [id number] Lactated Ringer's (Lr) 1,000 mls @ 125 mls/hr IV .Q8H SUSIE Stop: 03/21/19 09:14 Last Admin: 02/20/19 04:17 Dose: 125 mls/hr Documented by: [id number] Ibuprofen (Motrin) 600 mg PO Q4H PRN PRN Reason: Pain Stop: 03/22/19 03:02 Last Admin: 02/20/19 09:11 Dose: 600 mg Documented by: [id number] Admin: 02/20/19 04:15 Dose: 600 mg Documented by: [id number] Oxycodone/Acetaminophen (Percocet 5mg/325mg) 1 - 2 tab PO Q4H PRN PRN Reason: Pain Stop: 03/06/19 03:02 Last Admin: 02/20/19 09:11 Dose: 1 tab Documented by: [id number] Admin: 02/20/19 04:14 Dose: 1 tab Documented by: [id number] Prenat Multivit/[place]/Iron/Folic Ac ( Vitamin) 1 tab PO DAILY@08 [facility] Stop: 03/22/19 07:59 Last Admin: 02/20/19 07:39 Dose: 1 tab Documented by: [id number] Simethicone (Mylicon) 80 mg PO DAILY@08,13,17,21 [facility] Stop: 03/21/19 12:59 Last Admin: 02/20/19 07:39 Dose: 80 mg Documented by: [id number] Admin: 02/19/19 20:45 Dose: 80 mg Documented by: [id number] Admin: 02/19/19 17:03 Dose: 80 mg Documented by: [id number]
[2019-02-20] MEDS ORDERED: bisacodyL 5 MG TABEC PO SCH (20:00)
[2019-02-21] MEDS: IBUPROFEN 600 MG TAB PO PRN ×4 (00:03→23:24)
[2019-02-21] MEDS: OXYCODONE/ACETAMINOPHEN 5mg/325mg TAB PO PRN ×4 (00:03→23:24)
[2019-02-21 07:19] LABS: Hematocrit (blood only) 27.8 % (37-47); Hemoglobin 8.9 g/dL (12.0-16.0)
[2019-02-21] MEDS ORDERED: bisacodyL 10 MG SUPP PR PRN (09:03)
[2019-02-21] MEDS: DOCUSATE SODIUM 100 MG CAP PO SCH ×2 (09:16→20:13)
[2019-02-21] MEDS: FERROUS SULFATE 325 MG TAB PO SCH (09:16)
[2019-02-21] MEDS: PRENATAL VITAMIN 1 TAB PO SCH (09:16)
[2019-02-21] MEDS: SIMETHICONE 80 MG CHEW PO SCH ×4 (09:16→20:13)
--- NOTE | 2019-02-21 10:43 | Surgery Progress Note ---
Date of Service February 21, 2019 Subjective doing well tolerating diet bottle feeding Physical Exam Constitutional: WD/WN, vitals as above comfortable incision clean dry and intact fundus firm abdomen soft non-tender some edema of left ankle no calf pain or tenderness Glynn's negative Results & Data Vital Signs (Past 12 Hours) Vital Signs Temp Pulse Resp BP Pulse Ox 02/21/19 08:00 37.3 C 84 18 110/71 98 Laboratory Results Laboratory Results - last 72 hr 02/19/19 02/19/19 02/20/19 06:12 06:12 06:43 WBC 7.57 7.98 RBC 4.14 L 3.45 L Hgb 11.4 L 9.5 L Hct 34.3 L 29.0 L MCV 82.9 84.1 MCH 27.5 27.5 MCHC 33.2 32.8 RDW Std Deviation 50.9 H 52.0 H RDW Coeff of Arnie 16.8 H 17.0 H Plt Count 141 127 L MPV 9.7 9.8 Immature Gran % (Auto) 0.5 0.4 Neut % (Auto) 72.9 79.3 Lymph % (Auto) 18.1 10.9 [place] % (Auto) 6.3 6.9 Eos % (Auto) 2.1 2.4 Baso % (Auto) 0.1 0.1 Immature Gran # (Auto) 0.04 H 0.03 H Neut # (Auto) 5.51 6.33 Lymph # (Auto) 1.37 0.87 L [place] # (Auto) 0.48 0.55 Eos # (Auto) 0.16 0.19 Baso # (Auto) 0.01 0.01 Blood Type B Positive Antibody Screen NEGATIVE 02/21/19 06:35 WBC RBC Hgb 8.9 L Hct 27.8 L MCV MCH MCHC RDW Std Deviation RDW Coeff of Arnie Plt Count MPV Immature Gran % (Auto) Neut % (Auto) Lymph % (Auto) [place] % (Auto) Eos % (Auto) Baso % (Auto) Immature Gran # (Auto) Neut # (Auto) Lymph # (Auto) [place] # (Auto) Eos # (Auto) Baso # (Auto) Blood Type Antibody Screen tent d/c in AM
[2019-02-22] MEDS: SIMETHICONE 80 MG CHEW PO SCH ×2 (07:57→09:26)
[2019-02-22] MEDS: PRENATAL VITAMIN 1 TAB PO SCH (07:58)
[2019-02-22] MEDS: FERROUS SULFATE 325 MG TAB PO SCH (07:58)
[2019-02-22] MEDS: DOCUSATE SODIUM 100 MG CAP PO SCH (07:58)
[2019-02-22] MEDS: IBUPROFEN 600 MG TAB PO PRN ×2 (08:00→11:32)
[2019-02-22] MEDS: OXYCODONE/ACETAMINOPHEN 5mg/325mg TAB PO PRN ×2 (08:00→11:32)
--- NOTE | 2019-02-22 10:02 | Obstetrical Progress Note ---
Date of Service February 22, 2019 Subjective Ambulation: ambulating normally Voiding: no voiding problems Passing Gas:: Yes Diet Tolerance:: regular diet Lochia:: Small Feeding Type:: breast feeding Review of Systems All systems reviewed & are unremarkable except as noted in HPI & below Physical Exam Constitutional WD/WN, vitals as above well developed and well nourished Eyes PERRL, conjunctivae normal, anicteric sclerae Neck trachea midline, no thyromegaly Respiratory normal respiratory effort, lungs clear to auscultation Auscultation: no crackles, no rales and no wheezes Cardiovascular RRR, no murmur, no edema Gastrointestinal (Abdomen) normal bowel sounds, soft, nontender, no hepatosplenomegaly Uterus is below umbilicus Musculoskeletal no cyanosis or clubbing, extremities motor strength 5/5 Skin no rashes, warm and dry Neurologic patellar DTR's 2+ bilat, sensation intact Psychiatric A+Ox3, euthymic affect Genitourinary normal external appearance Results & Data Vital Signs (Past 12 Hours) Vital Signs Temp Pulse Resp BP 02/22/19 07:55 37.1 C 89 20 132/87 02/21/19 22:50 36.7 C 67 18 125/81
--- NOTE | 2019-02-22 10:04 | Obstetrical Progress Note ---
Date of Service February 22, 2019 Assessment & Plan (1) delivery delivered: POD #3 doing well disch home with instructions Subjective Ambulation: ambulating normally Voiding: no voiding problems Passing Gas:: Yes Diet Tolerance:: clear liquids Lochia:: Small Feeding Type:: breast feeding Review of Systems All systems reviewed & are unremarkable except as noted in HPI & below Physical Exam Constitutional WD/WN, vitals as above well developed and well nourished Eyes PERRL, conjunctivae normal, anicteric sclerae ENMT external ear and nose normal, oropharynx normal Neck trachea midline, no thyromegaly Respiratory normal respiratory effort, lungs clear to auscultation Cardiovascular RRR, no murmur, no edema Chest (Breasts) normal inspection/palpation of breasts Gastrointestinal (Abdomen) normal bowel sounds, soft, nontender, no hepatosplenomegaly Musculoskeletal no cyanosis or clubbing, extremities motor strength 5/5 Skin no rashes, warm and dry + incision (Clean,dry and intact) Neurologic patellar DTR's 2+ bilat, sensation intact Psychiatric A+Ox3, euthymic affect Genitourinary normal external appearance Lymphatic no cervical or axillary lymphadenopathy Results & Data Vital Signs (Past 12 Hours) Vital Signs Temp Pulse Resp BP 02/22/19 07:55 37.1 C 89 20 132/87 02/21/19 22:50 36.7 C 67 18 125/81
--- NOTE | 2019-02-25 22:27 | Discharge Summary ---
DETAILS OF ADMISSION: The patient is a 33-year-old G2, P0-1-0-1 at 39 weeks and 4 days of gestation, who was admitted for scheduled repeat due to history of prior . She declined trial of labor after and she was scheduled elective repeat . She delivered a viable female on 02/19/2019 via scheduled surgery. See dictated op note for details. Her surgery was uncomplicated. She was doing well on period and vital signs were stable, afebrile. Urine output was borderline. She was given IV fluid bolus and it picked up and improved. On postop day #1, the patient was doing well. Vital signs stable, afebrile. Physical exam was unremarkable. Her abdomen was soft, nontender, nondistended. Bleeding was minimal. Her legs were nontender, no edema noted. Her postop H and H was 9.5/29. On postop day #2, the patient was doing well. Vital signs stable, afebrile. The patient was passing gas, eating regular diet, walking around with no problems. Her physical exam was unremarkable. Incision was clean, dry and intact. Postop day #3, the patient was doing well. Vital signs stable, afebrile. Ambulating, tolerating a regular diet, passing gas, moving her bowels. She desired to be discharged on 02/22/2019. She was discharged by Dr. Espinal. Discharge instructions were given, when to call. Prescriptions were written and she is to be seen in the office in a week for incision check. All questions were answered.
== END 2019-02-22 12:03 | disposition home or self-care (01) | DRG 788 ==
LOC: 4S1 05:54 → EDSTATUS 07:30 → 4S2 11:56

== ENCOUNTER 2021-04-15 08:43 | Inpatient (IN) ==
--- NOTE | 2021-04-12 16:42 | History and Physical Report ---
DATE OF ADMISSION: 04/15/2021 She is scheduled for a section at [facility] on 04/15/2021. HISTORY OF PRESENT ILLNESS: This is a 35-year-old G3, P2, due date is 04/15/2021, is presently pregn ant and is 36 weeks and 6 days today. The patient is scheduled for repeat section at [facility] on the above-mentioned date, which is 04/15/2021. course has been unremarkable. The patient has a history of previous section and wi shes to have a repeat . PAST MEDICAL HISTORY: No history of diabetes, hypertension, or asthma. PAST SURGICAL HISTORY: History of section and adenoids surgery. ALLERGIES: No known drug allergies. SOCIAL HISTORY: The patient denies tobacco, drug or alcohol use. The patient is and lives w ith 2 of her kids. PHYSICAL EXAMINATION: GENERAL: A well-developed, well-nourished female in no acute distress. HEART: S1 and S2, regular rhythm and rate. CHEST: Clear to auscultation bilaterally. ABDOMEN: Gravid. EXTREMITIES: No cyanosis, clubbing or edema. ASSESSMENT AND PLAN: A 35-year-old 3, para 2, at term. Prior section, wishes to mo ve a repeat section. The patient was offered a tubal ligation and declined. Discussed risk s of surgery including infection, bleeding, and damage to adjacent structures. Consent is obtained i n the office. The patient will proceed with section as stated above. Job ID: [id number]
--- NOTE | 2021-04-13 11:37 | Anesthesiology Consultation ---
Date of Service April 13, 2021 Assessment & Plan (1) Encounter for pre-operative examination: Customer Engagement Manager needed: Croatian (per records)/L&D aware Chart Review Chart Review: ream cutter initiated History Surgery Operation Date: 04/15/21 10:40 Proposed Procedures p Repeat Section - Nick Fragoso MD Height/Weight Height: 5 ft 1 in Weight: 90 kg Allergies Allergy/AdvReac Type Severity Reaction Status Date / Time No Known Allergies Allergy Verified 03/29/19 09:24 Medications Home Medications Medication Instructions Recorded Confirmed Last Taken multivitamin 1 tab PO QAM 02/06/19 03/29/19 03/29/19 ferrous sulfate 325 mg (65 mg 325 mg PO DAILY@08 #60 tab 02/22/19 03/29/19 03/29/19 iron) tablet,delayed release ibuprofen 600 mg tablet 600 mg PO Q4H #60 tab 02/22/19 03/29/19 03/28/19 Past Medical History Medical History (Updated 04/13/21 @ 11:32 by Ginette Mendez) Pre-eclampsia hx (on ASA) Past Family History Family History Other No pertinent family history Past Surgical History Surgical History (Updated 04/13/21 @ 11:33 by Ginette Mendez) History of adenoidectomy Previous section 2017 (emergent)- ?spinal vs. epidural: good pain control 02/19/19 (repeat c/s)- SAB at L3/L4 (x1 attempt) at [facility] Social History Smoking Status: Never smoker Hx Alcohol Use: No Hx Substance Use: No substance use type: does not use
[~2021-04-15 08:43] MED LIST changes: +CITRIC ACID/SODIUM CITRATE 15 ML UDC PO SCH; +LACTATED RINGER'S 1,000 ML IV SCH; -MULT-506 PO; +ceFAZolin 2,000 MG in SYRINGE 0 ML IV SCH
[2021-04-15] MEDS ORDERED: SODIUM CHLORIDE 0.9% 250 ML IV PRN (10:38)
[2021-04-15] MEDS ORDERED: fentaNYL citrate 100 MCG/2 ML VIAL ONE (10:52)
[2021-04-15] MEDS ORDERED: MoRPHine SULFATE PF 1 MG/ML 10 ML AMP/VIAL ONE (10:52)
--- NOTE | 2021-04-15 11:53 | History & Physical Bridge Note ---
Date of Service April 15, 2021 History & Physical Bridge Note I have examined the patient, reviewed the History & Physical and in the interval since the performance of the History & Physical I have noted the following changes of clinical significance: no changes noted Scheduled Repeat Csection Declined Tubal ligation FHR category I
[2021-04-15 12:21] LABS: Hematocrit (blood only) 36.7 % (37-47); Hemoglobin 12.2 g/dL (12.0-16.0); Mean Corpuscular Volume 87.4 fL (80-100); Mean Platelet Volume 10.3 fL (7.4-10.4); Platelet Count 131 K/uL (130-400); RDW Coefficient of Variation 15.9 % (11.5-14.5); RDW Standard Deviation 50.2 fL (36.4-46.3); White Blood Count 8.21 K/uL (4.8-10.8)
[2021-04-15 12:26] LABS: Mean Corpuscular Hgb Conc 33.2 g/dL (32-36)
[2021-04-15] MEDS ORDERED: MoRPHine SULFATE 2 MG/ML CARP IV PRN (12:33)
[2021-04-15] MEDS ORDERED: ONDANSETRON INJ 2 MG/ML 2 ML VIAL IV PRN ×2 (12:33→13:28)
[2021-04-15] MEDS ORDERED: NALOXONE HCL 0.4 MG/1 ML VIAL/CARP IV PRN (12:33)
[2021-04-15] MEDS ORDERED: NALOXONE HCL 0.08 MG in SYRINGE 1.8 ML IV PRN (12:33)
[2021-04-15] MEDS ORDERED: HYDROmorphone INJ 0.5 MG/0.5 ML SYR IV PRN (12:33)
[2021-04-15] MEDS ORDERED: MoRPHine SULFATE PF 1 MG/ML 10 ML AMP/VIAL INT SPINAL ONE (12:33)
[2021-04-15] MEDS ORDERED: LACTATED RINGER'S 500 ML IV PRN (12:33)
[2021-04-15] MEDS ORDERED: diphenhydrAMINE 50 MG/ML VIAL IV PRN ×2 (12:33→13:28)
[2021-04-15] MEDS ORDERED: PROMETHAZINE HCL 6.25 MG in SODIUM CHLORIDE 0.9% 50 ML IV PRN (12:33)
[2021-04-15] MEDS ORDERED: ePHEDrine sulfate 50 MG/ML AMP IV PRN (12:33)
[2021-04-15] MEDS ORDERED: NALOXONE HCL 1 MG in SODIUM CHLORIDE 0.9% 1000ML 1,000 ML IV PRN (12:33)
[2021-04-15] MEDS ORDERED: DC INTRASPINAL MORPHINE SCH (12:45)
[2021-04-15] MEDS ORDERED: NO NARCOTICS OR SEDATIVES SCH (12:45)
[2021-04-15] MEDS ORDERED: LACTATED RINGER'S 1,000 ML IV SCH ×2 (12:45→13:30)
[2021-04-15] MEDS ORDERED: SODIUM CHLORIDE 0.9% 1000ML 1,000 ML IV SCH (12:45)
[2021-04-15] MEDS ORDERED: ONDANSETRON INJ 2 MG/ML 2 ML VIAL ONE (12:51)
[2021-04-15] MEDS ORDERED: OXYTOCIN 10 UNITS/ML VIAL ONE (12:51)
[2021-04-15] MEDS ORDERED: PHENYLEPHRINE 100MCG/ML 5ML SYR ONE (12:51)
[2021-04-15] MEDS ORDERED: MEASLES, MUMPS & RUBELLA VIRUS VIAL SQ ONE (13:28)
[2021-04-15] MEDS ORDERED: HYDROCORTISONE ACETATE 25 MG SUPP PR PRN (13:28)
[2021-04-15] MEDS ORDERED: KETOROLAC 30 MG/ML VIAL IV PRN (13:28)
[2021-04-15] MEDS ORDERED: BENZOCAINE 20% AER SPR 82.5 GM CAN EXT PRN (13:28)
[2021-04-15] MEDS ORDERED: SENNA 8.6 MG TAB PO PRN (13:28)
[2021-04-15] MEDS ORDERED: PROMETHAZINE HCL 25 MG in SODIUM CHLORIDE 0.9% 50 ML IV PRN (13:28)
[2021-04-15] MEDS ORDERED: SUPERCREAM 0.870% 15 GM JAR EXT PRN (13:28)
[2021-04-15] MEDS ORDERED: diphenhydrAMINE Capsule 25 MG CAP PO PRN (13:28)
[2021-04-15] MEDS ORDERED: DIPHTHERIA/TETANUS/PERTUSSIS 0.5 ML SYR/VIAL IM ONE (13:28)
[2021-04-15] MEDS ORDERED: MAGNESIUM HYDROXIDE SUSP 30 ML UDC PO PRN (13:28)
[2021-04-15] MEDS ORDERED: MEPERIDINE HCL 50 MG/ML CARP IV PRN (13:28)
--- NOTE | 2021-04-15 13:32 | Post Operative Brief Note ---
Immediate Post Op Note v1 Date of Surgery April 15, 2021 Pre & Post Diagnosis Operation Date: 04/15/21 10:40 Pre-Op Diagnosis: Previous Post-Op Diagnosis: Previous I identified the patient and participated in the time-out.: Yes Procedure Operation Date: 04/15/21 10:40 Actual Procedures p Repeat Section delivery of live male child at 1249 - Nick Coyle MD Surgeon Nick Fragoso MD Shift Stacker DR Sheets Estimated Blood Loss 450 Findings Consistent with Post-Op Diagnosis Drains Cochran Catheter Complications none Disposition Accompanied Patient To Recovery: Yes
--- NOTE | 2021-04-15 13:49 | Anesthesiology Progress Note ---
Date of Service April 15, 2021 Anesthesia Post Procedure Vital Signs Vital Signs: Temp Pulse Resp BP Pulse Ox 04/15/21 13:47 72 99 04/15/21 13:42 82 115/63 98 04/15/21 09:14 81 144/83 H 04/15/21 09:11 82 70 L 04/15/21 09:09 91 H 98 04/15/21 09:04 81 98 04/15/21 08:59 87 98 04/15/21 08:58 81 146/93 H 04/15/21 08:54 37.5 C 90 18 99 Transfer of Care Handoff Completed per policy Notes Mental Status: alert / awake / arousable and participated in evaluation Patient Amnestic to Procedure: Yes Nausea / Vomiting: adequately controlled Pain: adequately controlled Airway Patency, RR, SpO2: stable & adequate BP & HR: stable & adequate Hydration State: stable & adequate Anesthetic Complications: no major complications apparent and Pt Satisfied with anesthetic care
[2021-04-15] MEDS ORDERED: OXYTOCIN 20 UNITS in D5W AND LACTATED RINGERS 1,000 ML IV SCH (14:00)
[2021-04-15] MEDS: NALBUPHINE HCL INJ 10 MG/ML AMP IV PRN ×2 (15:18→17:04)
[2021-04-15] MEDS: KETOROLAC 30 MG/ML VIAL IV PRN (15:48)
[2021-04-15] MEDS: SIMETHICONE 80 MG CHEW PO SCH ×3 (17:04→21:04)
--- NOTE | 2021-04-15 20:17 | Operative Report (OR) ---
DATE OF SURGERY: 04/15/2021. PREOPERATIVE DIAGNOSES: The patient is a 35-year-old G3, P1-1-0-2, at 40 weeks of gestation with history of prior 2 sections and desires repeat section. POSTOPERATIVE DIAGNOSES: The patient is a 35-year-old G3, P1-1-0-2, at 40 weeks of gestation with history of prior 2 sections and desires repeat section. PROCEDURE: Repeat low transverse with Pfannenstiel skin incision. SURGEON: Nick Fragoso MD. SUPPORTABILITY ENGINEER: Safia Sheets MD. ESTIMATED BLOOD LOSS: 450 mL. ANESTHESIA: Spinal. ANESTHESIOLOGIST: Dr. Mueller. DRAINS: Cochran catheter drained 350 mL of clear urine. COMPLICATIONS: None. FINDINGS: Baby was a viable male delivered in cephalic presentation at 12:49 p.m. Weight was 4070 grams. Maternal findings: Normal uterus, fallopian tubes, and ovaries. There were some filmy adhesions of the omentum to the anterior abdominal wall and then mild scarring on the fascia, otherwise normal. DESCRIPTION OF PROCEDURE: The patient was taken to the operating room where spinal anesthesia was given without difficulty. She was placed in dorsal supine position with a leftward tilt. She was prepared and draped in the usual sterile fashion. A Pfannenstiel skin incision was made from the old scar, carried through to the underlying layer of fascia with the Bovie. Fascia was incised in the midline and incision was extended laterally with the help of Ramirez scissors. Upper aspect of the fascial incision was grasped with 2 Carlito clamps, elevated and underlying rectus dissected off sharply with Ramirez scissors, and the tip of Bovie. Same thing was done on the lower aspect of the fascial incision which was lifted up and dissected from the underlying muscles. Rectus muscles were attached to each other. A scalpel was used to incise and then the peritoneum was entered bluntly with the fingers and then the rectus muscles and the scarring were incised with a tip of Metzenbaum scissors while holding the abdominal wall up avoiding any bowels or bladder and then this incision was extended with the help of fingers by visualization of the bladder and bladder blade was inserted. Vesicouterine peritoneum was identified, grasped with pickups, and entered sharply with Metzenbaum scissors and a bladder flap was created digitally and bladder blade was reinserted. Lower uterine segment was thin, but intact. It was incised in a transverse fashion. Incision was extended laterally with the help of fingers. Membranes were ruptured. Clear fluid was obtained. Baby's head was delivered without difficulty. Shoulders were delivered with minimal traction. Mouth and nose were suctioned. Baby was vigorously moving and crying. Cord was clamped x2 at 1 minute delay. Baby was handed to the waiting pediatric team with Dr. Castle. Cord blood was obtained. Placenta was delivered manually as intact and complete. Uterus was exteriorized and cleared of all clots and debris. Its incision was repaired with 0 Vicryl in a running locked fashion. A second imbricating layer was placed with another 0 Vicryl in a running locked fashion. Excellent hemostasis was achieved. Cul-de-sac was irrigated with warm normal saline and suctioned. Normal fallopian tubes and ovaries were visualized. Uterus was returned to the abdomen. Pelvis was irrigated with warm normal saline and suctioned. Incision was hemostatic. There were adhesions of the omentum to the abdominal wall. Those were incised with the tip of Bovie without any bleeding and those were pushed back to the abdomen by Fish retractor and then parietal peritoneum was reapproximated with 3-0 Vicryl in a running fashion and the fish retractor was removed and the rectus muscles were reapproximated with the same suture, 3-0 Vicryl in a running fashion. Excellent hemostasis was achieved. The rectus fascia was reapproximated with 0 Vicryl in a running fashion starting from both corners meeting in the midline and the subcuticular fat tissue was brought together with 3-0 Vicryl in a running fashion. The skin was closed with 4-0 Monocryl in a subcuticular fashion. The patient tolerated the procedure well. Sponge, lap, needle count was correct x3. No complications happened. I and Dr. Sheets was present during whole procedure. Dr. Sheets, my nutrition services assistant was needed for retraction, visualization, aid in the delivery of the infant and hemostasis during surgery. Job ID: [id number] [facility]
[2021-04-15] MEDS: DOCUSATE SODIUM 100 MG CAP PO SCH (21:01)
[2021-04-15] MEDS ORDERED: OXYTOCIN 20 UNITS in LACTATED RINGER'S 1,000 ML IV SCH (22:00)
[2021-04-15] MEDS ORDERED: LACTATED RINGER'S 1,000 ML IV ONE (23:31)
[2021-04-15 23:48] LABS: Hematocrit (blood only) 32.3 % (37-47); Hemoglobin 10.9 g/dL (12.0-16.0); Mean Corpuscular Hemoglobin 29.6 pg (25-34); Mean Corpuscular Volume 87.8 fL (80-100); Mean Platelet Volume 9.8 fL (7.4-10.4); Platelet Count 115 K/uL (130-400); RDW Standard Deviation 51.3 fL (36.4-46.3); Red Blood Count 3.68 M/uL (4.2-5.4); White Blood Count 7.81 K/uL (4.8-10.8)
[2021-04-16 00:07] LABS: Alanine Aminotransferase 15 U/L (12-78); Albumin Level 1.9 gm/dl (3.4-5.0); Aspartate Aminotransferase 17 U/L (15-37); BUN Creatinine Ratio 11.1 (10-20); Blood Urea Nitrogen 5 mg/dl (7-18); Calcium 9.1 mg/dl (8.5-10.1); Carbon Dioxide 26 mmol/L (21-32); Chloride 107 mmol/L (98-107); Creatinine Clr Calc Pharmacy 173.8 ml/min; Est GFR (African American) > 150.0 ml/min; Est GFR (Non-African American) 129.8 ml/min; Glucose 112 mg/dl (70-99); Potassium 3.9 mmol/L (3.5-5.1); Sodium 137 mmol/L (136-145)
[2021-04-16 00:09] LABS: Albumin Globulin Ratio 0.6 (0.9-2); Alkaline Phosphatase 127 U/L (45-117); Bilirubin,Total 0.6 mg/dl (0.2-1); Total Protein 4.9 gm/dl (6.4-8.2)
[2021-04-16 00:34] LABS: Mean Corpuscular Hgb Conc 33.7 g/dL (32-36)
[2021-04-16] MEDS: KETOROLAC 30 MG/ML VIAL IV PRN (03:19)
[2021-04-16 06:24] LABS: Eosinophils # (auto) 0.15 K/uL (0-0.5); Eosinophils % (auto) 1.8 %; Hematocrit (blood only) 30.6 % (37-47); Hemoglobin 10.1 g/dL (12.0-16.0); Immature Granulocytes # (auto) 0.03 K/uL (0.00-0.02); Immature Granulocytes % (auto) 0.4 %; Lymphocytes # (auto) 1.03 K/uL (1.2-3.4); Lymphocytes % (auto) 12.5 %; Mean Corpuscular Hemoglobin 29.1 pg (25-34); Mean Corpuscular Volume 88.2 fL (80-100); Mean Platelet Volume 9.9 fL (7.4-10.4); Monocytes # (auto) 0.52 K/uL (0.11-0.59); Monocytes % (auto) 6.3 %; Neutrophils # (auto) 6.52 K/uL (1.4-6.5); Platelet Count 114 K/uL (130-400); RDW Coefficient of Variation 16.3 % (11.5-14.5); RDW Standard Deviation 52.2 fL (36.4-46.3); Red Blood Count 3.47 M/uL (4.2-5.4); White Blood Count 8.25 K/uL (4.8-10.8)
[2021-04-16] MEDS: IBUPROFEN 600 MG TAB PO PRN ×3 (09:22→19:50)
[2021-04-16] MEDS: oxyCODONE/ACETAMINOPHEN 5mg/325mg TAB PO PRN ×3 (09:24→19:50)
[2021-04-16] MEDS: DOCUSATE SODIUM 100 MG CAP PO SCH ×2 (09:26→19:49)
[2021-04-16] MEDS: FERROUS SULFATE 325 MG TAB PO SCH (09:27)
[2021-04-16] MEDS: SIMETHICONE 80 MG CHEW PO SCH ×3 (09:28→19:50)
[2021-04-16] MEDS: PRENATAL VITAMIN 1 TAB PO SCH (09:28)
--- NOTE | 2021-04-16 10:22 | Progress Note ---
Date of Service April 16, 2021 Assessment & Plan Admission and Anticipated Discharge Date Admission Date: April 15, 2021 Subjective doing well not out of bed enough not passing gas yet no pain in legs Physical Exam Physical Exam: abdomen soft and non-tender neg Glynn's incision c/d/i will increase activity and diet Results & Data ([facility]) Vital Signs (Past 12 Hours) Vital Signs Temp Pulse Pulse Resp BP Pulse Ox 04/16/21 08:00 36.9 C 88 18 112/75 100 04/16/21 06:15 18 99 04/16/21 05:23 18 98 04/16/21 04:00 18 97 04/16/21 03:55 36.8 C 78 18 112/73 97 04/16/21 02:15 20 97 04/16/21 01:43 18 97 04/16/21 00:30 18 97 04/15/21 23:15 36.7 C 83 16 106/66 97 Laboratory Results Laboratory Results - last 72 hr 04/15/21 04/15/21 04/15/21 09:01 09:01 23:36 WBC 8.21 7.81 RBC 4.20 3.68 L Hgb 12.2 10.9 L Hct 36.7 L 32.3 L MCV 87.4 87.8 MCH 29.0 29.6 MCHC 33.2 33.7 RDW Std Deviation 50.2 H 51.3 H RDW Coeff of Arnei 15.9 H 16.0 H Plt Count 131 115 L MPV 10.3 9.8 Immature Gran % (Auto) Neut % (Auto) Lymph % (Auto) [place] % (Auto) Eos % (Auto) Baso % (Auto) Neut # (Auto) Lymph # (Auto) [place] # (Auto) Eos # (Auto) Baso # (Auto) Immature Gran # (Auto) Sodium Potassium Chloride Carbon Dioxide Anion Gap BUN Creatinine Est Cr Clr Drug Dosing Est GFR ( Amer) Est GFR (Non-Af Amer) BUN/Creatinine Ratio Glucose Calcium Total Bilirubin AST ALT Alkaline Phosphatase Total Protein Albumin Globulin Albumin/Globulin Ratio Blood Type B Positive Antibody Screen NEGATIVE Crossmatch See Detail 04/15/21 04/16/21 23:36 06:03 WBC 8.25 RBC 3.47 L Hgb 10.1 L Hct 30.6 L MCV 88.2 MCH 29.1 MCHC 33.0 RDW Std Deviation 52.2 H RDW Coeff of Arnie 16.3 H Plt Count 114 L MPV 9.9 Immature Gran % (Auto) 0.4 Neut % (Auto) 79.0 Lymph % (Auto) 12.5 [place] % (Auto) 6.3 Eos % (Auto) 1.8 Baso % (Auto) 0.0 Neut # (Auto) 6.52 H Lymph # (Auto) 1.[address] [place] # (Auto) 0.52 Eos # (Auto) 0.15 Baso # (Auto) 0.00 Immature Gran # (Auto) 0.03 H Sodium 137 Potassium 3.9 Chloride 107 Carbon Dioxide 26 Anion Gap 4.0 BUN 5 L Creatinine 0.47 L Est Cr Clr Drug Dosing 173.8 Est GFR ( Amer) > 150.0 Est GFR (Non-Af Amer) 129.8 BUN/Creatinine Ratio 11.1 Glucose 112 H Calcium 9.1 Total Bilirubin 0.6 AST 17 ALT 15 Alkaline Phosphatase 127 H Total Protein 4.9 L Albumin 1.9 L Globulin 3.0 Albumin/Globulin Ratio 0.6 L Blood Type Antibody Screen Crossmatch
[2021-04-16] MEDS ORDERED: bisacodyL 5 MG TABEC PO SCH (20:00)
[2021-04-17] MEDS: IBUPROFEN 600 MG TAB PO PRN ×2 (04:58→09:39)
[2021-04-17] MEDS: oxyCODONE/ACETAMINOPHEN 5mg/325mg TAB PO PRN ×2 (04:59→09:37)
[2021-04-17 06:52] LABS: Hematocrit (blood only) 29.7 % (37-47)
--- NOTE | 2021-04-17 07:18 | Obstetrical Progress Note ---
Date of Service April 17, 2021 Assessment & Plan (1) Status post section routine follow-up: Continue routine PP care Continue PO pain meds Discharge home today with F/U with [facility] [facility] [facility] (2) Iron deficiency anemia: Continue iron and colace for 30 days PP Subjective Ambulation: ambulating normally Voiding: no voiding problems Passing Gas:: Yes Diet Tolerance:: regular diet Lochia:: Small Feeding Type:: breast feeding Current Pain Level(1-10): 3 Bottle and breast feeding, pain controlled on PO meds, swelling in feet Wants to go home today if baby is discharged Denies SOB, chest pain or fatigue Physical Exam Constitutional WD/WN, vitals as above Neck trachea midline, no thyromegaly Respiratory normal respiratory effort, lungs clear to auscultation Cardiovascular RRR, no murmur, no edema Gastrointestinal (Abdomen) normal bowel sounds, soft, nontender, no hepatosplenomegaly Pressure bandage in place, dry Skin no rashes, warm and dry 1+ pitting edema in feet Results & Data ([facility]) Vital Signs (Past 12 Hours) Vital Signs Temp Pulse Resp BP Pulse Ox 04/17/21 00:00 36.7 C 80 16 123/82 98 04/16/21 20:00 36.3 C L 90 16 118/77 98 Laboratory Results H/H 10.0/29.7%
[2021-04-17] MEDS: SIMETHICONE 80 MG CHEW PO SCH ×2 (09:36→13:41)
[2021-04-17] MEDS: PRENATAL VITAMIN 1 TAB PO SCH (09:37)
[2021-04-17] MEDS: FERROUS SULFATE 325 MG TAB PO SCH (09:37)
[2021-04-17] MEDS: DOCUSATE SODIUM 100 MG CAP PO SCH (09:37)
[2021-04-17] MEDS ORDERED: bisacodyL 10 MG SUPP PR PRN (13:29)
--- NOTE | 2021-04-21 07:48 | Discharge Summary (DS) ---
DATE OF ADMISSION: 04/15/2021. DATE OF DISCHARGE: 04/17/2021. DETAILS OF ADMISSION: The patient is a 35-year-old 3, para 1-1-0-2, at 40 weeks of gestation with history of prior two sections and she desired repeat and declined tubal liga tion. She scheduled repeat on 04/15/2021. She presented to labor and delivery in the [facility]. Her vital signs were stable, she was afebrile. heart rate was reassuring. She was taken to the OR and delivered a viable male at 12:49 p.m. via repeat low transverse with Pfannenstiel incision. Her surgery was uncomplicated. See dictated op note for details. On postop period, the patient was doing well, vital signs stable, afebrile. Her bleeding was minimal. Her uri ne output was low at night about 10 hours after surgery. She was given IV fluid bolus and her urine output was improved. Her H and H was stable at 10.9/32.3. Her creatinine and complete metabolic capone el were within normal limits. On postop day #1, the patient was doing well, vital signs stable, afeb rile. Her physical exam was unremarkable. The incision was clean, dry, and intact. Extremities non tender. No edema. Homans sign negative. Her H and H was 10.1/30.6. She was advanced to regular di et, ambulated. Cochran was discontinued. On postop day #2, the patient was doing well, vital signs sta ble, afebrile. Passing gas, tolerating regular diet. Bleeding was minimal. without pr oblems. Pain was under control with p.o. meds. Her physical exam was unremarkable. The incision w as clean, dry and intact. She desired to be discharged home on postoperative day #2. Discharge inst ructions were given. Prescriptions were written for pain. She is to be seen in the office in a week . All questions were answered. Job ID: [id number]
== END 2021-04-17 13:45 | disposition home or self-care (01) | DRG 788 ==
LOC: 4S1 08:43 → EDSTATUS 10:50 → 4S2 16:28

== ENCOUNTER 2021-12-29 17:48 | Observation (INO) ==
[2021-12-29] MEDS ORDERED: SODIUM CHLORIDE 0.9% 1000ML 1,000 ML IV ONE (18:27)
--- NOTE | 2021-12-29 18:33 | Emergency Department Note ---
History of Present Illness General Chief complaint: Dizziness Stated complaint: DIZZINESS, R ARM IS HEAVY, CONFUSION Time Seen by Provider: 12/29/21 18:18 Source: patient, RN notes reviewed and old records reviewed Mode of arrival: ambulatory Limitations: no limitations History of Present Illness Maximum Pain Intensity: 7 This patient comes in through triage complaining of she felt dizzy and has some heaviness in the right arm and leg. The nurse who saw her thought her symptoms were minimal but was concerned about a potential stroke like situation given that she had heaviness in the arm and leg on the right side. We called a stroke alert I immediately went and saw her after she I was notified. She does not feel dizzy at present denies any headache denies any trauma she is on no blood thinners. This started at 2:00. She is currently breast-feeding and has a 9-month-old at home denies . She has fever chills. No chest pain shortness of breath or abdominal pain. Denies trouble speaking. She said she was feeling a little confused earlier. She does speak Tajik as well as Taiwanese Home Medications Medication Instructions Recorded Confirmed Type ferrous sulfate 325 mg (65 mg 325 mg PO DAILY@08 #60 tabs 02/22/19 12/29/21 Rx iron) tablet,delayed release cholecalciferol (vitamin D3) 10 800 unit PO DAILY 04/15/21 12/29/21 History mcg (400 unit) capsule (Vitamin D3) [id number] 1 mg 1 tab PO DAILY 04/15/21 12/29/21 History tablet amoxicillin 500 mg capsule 500 mg PO TID 12/29/21 12/29/21 History Allergies Allergy/AdvReac Type Severity Reaction Status Date / Time No Known Allergies Allergy Verified 12/29/21 19:10 Past Med/Surg History Medical History Pre-eclampsia hx (on ASA) Surgical History History of adenoidectomy Previous section 2017 (emergent)- ?spinal vs. epidural: good pain control 02/19/19 (repeat c/s)- SAB at L3/L4 (x1 attempt) at [facility] Family History Other No pertinent family history Social History Smoking Status: Never smoker Second Hand Exposure: No; Hx Alcohol Use: No Hx Substance Use: No Preferred Language: Tajik Communication Ability: Effective Communication Tools: IPad Bridge Manager Required: No Beliefs That Will Affect Care: Restorationist Restorationist Beliefs: Mandaen. marital status: Current Living Situation: Family current occupational status: unemployed Feels Safe at Home: Yes Safety Concerns: Feels Safe At This Time Assistive Devices: None Review of Systems A total of 10 systems reviewed and were otherwise negative Physical Exam Vital Signs Vital Signs - 24 hr 12/29/21 17:57 12/29/21 18:43 12/29/21 19:15 Temperature 36.7 C Temperature Source Temporal Artery Scan Pulse Rate 79 65 Pulse Rate [Right Apical] 68 Pulse Rhythm Regular Pulse Strength Normal Respiratory Rate 20 18 20 Respiratory Effort / Characteristics Non-Labored Spontaneous Respiratory Depth Normal Respiratory Pattern Regular Blood Pressure 165/105 H 158/105 H Blood Pressure [Right Arm] 136/99 Blood Pressure Mean 125 122 Blood Pressure Mean [Right Arm] 111 Blood Pressure Position Sitting Blood Pressure Position [Right Arm] Lying Pulse Oximetry 99 99 100 Oxygen Delivery Method Room Air Room Air Sepsis Recent Fever Within 48 Hours No Sepsis New/Unexplained Change in Mental Status No Sepsis Action Taken by Nursing No Action Required 12/29/21 19:30 12/29/21 19:45 12/29/21 21:00 Temperature Temperature Source Pulse Rate 69 65 68 Pulse Rate [Right Apical] Pulse Rhythm Pulse Strength Respiratory Rate 22 18 16 Respiratory Effort / Characteristics Respiratory Depth Respiratory Pattern Blood Pressure 144/104 H 131/92 132/100 Blood Pressure [Right Arm] Blood Pressure Mean 117 105 110 Blood Pressure Mean [Right Arm] Blood Pressure Position Blood Pressure Position [Right Arm] Pulse Oximetry 100 98 100 Oxygen Delivery Method Sepsis Recent Fever Within 48 Hours Sepsis New/Unexplained Change in Mental Status Sepsis Action Taken by Nursing 12/29/21 21:30 Temperature Temperature Source Pulse Rate 73 Pulse Rate [Right Apical] Pulse Rhythm Pulse Strength Respiratory Rate 19 Respiratory Effort / Characteristics Respiratory Depth Respiratory Pattern Blood Pressure 139/101 H Blood Pressure [Right Arm] Blood Pressure Mean 113 Blood Pressure Mean [Right Arm] Blood Pressure Position Blood Pressure Position [Right Arm] Pulse Oximetry 99 Oxygen Delivery Method Sepsis Recent Fever Within 48 Hours Sepsis New/Unexplained Change in Mental Status Sepsis Action Taken by Nursing General: Well developed well nourished young female who appears mildly anxious but in no acute distress, breathing comfortably on room air. Normal speech. Her speech is nonslurred there may be a mild language barrier but she seems to be answering all questions appropriately. HEENT: Normal cephalic atraumatic. Pupils are equal round and reactive to light. Extraocular movements are intact. Oropharynx is pink with moist mucous membranes. No swelling of the mouth lips or tongue. No obvious facial asymmetry or droop. Neck: Supple with a midline trachea. No meningeal signs or stiffness, no JVD or bruits. No Stridor. Chest: Clear to auscultation bilaterally. No wheezes or rhonchi. No increased work of breathing. Heart: Regular rate and rhythm without murmurs or gallops. Abdomen: Soft nontender, nondistended without rebound guarding or rigidity. Extremities: No cyanosis clubbing or edema. No calf tenderness or assymetry Spine/Back. Non tender to palpation. No CVA tenderness Skin: Good turgor without rashes. Neurologic exam: Cranial nerves two through 12 are intact. Motor and sensation are intact and symmetrical throughout. 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 She has no pronator drift. Course Administered Medications Acetaminophen (Acetaminophen 325 Mg Tab) 650 mg PO Q4H PRN PRN Reason: Pain or Fever Stop: 01/28/22 23:12 Last Admin: 12/30/21 00:22 Dose: 650 mg Documented By: MED Sodium Chloride (1/2 Nss) 1,000 mls @ 100 mls/hr IV .Q10H SUSIE Stop: 12/30/21 19:12 Last Admin: 12/30/21 00:24 Dose: 100 mls/hr Documented By: MED Discontinued Medications Sodium Chloride (Nss 1000ml) 1,000 mls @ 999 mls/hr IV .Q1H1M ONE Stop: 12/29/21 19:27 Last Infusion: 12/29/21 19:50 Dose: 0 mls/hr Documented By: Admin: 12/29/21 18:41 Dose: 999 mls/hr Documented By: RJ Ioversol (Optiray 320 125ml) 121 ml IV ONCE ONE Stop: 12/29/21 18:38 Last Admin: 12/29/21 18:38 Dose: 121 ml Documented By: LIVE Medical Decision Making Differential Diagnosis Stroke, intracranial process, vascular disease, migraine, electrolyte or metabolic abnormality, neurologic disease, cardiac disease, anxiety, infection, trauma Medical Records Attestation: I reviewed the patient's medical records. Home Medications Current Medication List: was personally reviewed by me Laboratory Data Attestation: I reviewed the patient's lab results. Result diagrams: 12/29/21 18:24 12/29/21 18:24 Lab Results 12/29/21 12/29/21 12/29/21 Range/Units 18:24 18:24 18:24 WBC 8.46 (4.8-10.8) K/ul RBC 5.03 (3.93-5.22) M/uL Hgb 13.6 (12.0-16.0) g/dl Hct 41.1 (34.1-44.9) % MCV 81.7 (80.0-100.0) fL MCH 27.0 (25.0-34.0) pg MCHC 33.1 (32.0-36.0) g/dL RDW Std Deviation 39.6 (36.4-46.3) fL RDW Coeff of Arnie 13.6 (11.5-14.5) % Plt Count 232 (130-400) K/uL MPV 9.7 (9.4-12.3) fL Immature Gran % (Auto) 0.5 % Neut % (Auto) 67.0 % Lymph % (Auto) 22.2 % [place] % (Auto) 5.9 % Eos % (Auto) 4.0 % Baso % (Auto) 0.4 % Neut # (Auto) 5.67 (1.4-6.5) K/uL Lymph # (Auto) 1.88 (1.2-3.4) K/uL [place] # (Auto) 0.50 (0.24-0.82) K/uL Eos # (Auto) 0.34 (0-0.50) K/uL Baso # (Auto) 0.03 (0-0.2) K/uL Immature Gran # (Auto) 0.04 H (0.00-0.02) K/uL PT 9.8 (9.0-12.0) Seconds INR 0.9 (0.9-1.1) APTT 25.3 (21.0-31.0) Seconds PTT Ratio 0.9 Sodium 137 (136-145) mmol/L Potassium 3.8 (3.5-5.1) mmol/L Chloride 102 (98-107) mmol/L Carbon Dioxide 25 (21-32) mmol/L Anion Gap 10 (3-11) BUN 15 (6-23) mg/dl Creatinine 0.58 L (0.6-1.2) mg/dl Est Cr Clr Drug Dosing 136.5 ml/min Est GFR ( Amer) 140.4 ml/min Est GFR (Non-Af Amer) 121.1 ml/min BUN/Creatinine Ratio 25.9 H (10-20) Glucose 89 (70-99(Fasting)) mg/dl POC Glucose (70-99) mg/dl Calcium 11.0 H (8.5-10.1) mg/dl Magnesium 1.9 (1.7-2.4) mg/dl Total Bilirubin 0.4 (0.2-1.0) mg/dl AST 17 (13-39) U/L ALT 15 (7-52) U/L Alkaline Phosphatase 135 H (34-104) U/L Troponin I High Sens 3.4 (0-14) pg/ml Total Protein 7.8 (6.0-8.3) gm/dl Albumin 4.7 (3.4-5.0) gm/dl Globulin 3.1 (2.5-4.0) gm/dl Albumin/Globulin Ratio 1.5 (0.9-2) HCG, Qual (Negative) SARS-CoV-2, RNA, NAAT (NEGATIVE) 12/29/21 12/29/21 12/29/21 Range/Units 18:24 18:40 19:06 WBC (4.8-10.8) K/ul RBC (3.93-5.22) M/uL Hgb (12.0-16.0) g/dl Hct (34.1-44.9) % MCV (80.0-100.0) fL MCH (25.0-34.0) pg MCHC (32.0-36.0) g/dL RDW Std Deviation (36.4-46.3) fL RDW Coeff of Arnie (11.5-14.5) % Plt Count (130-400) K/uL MPV (9.4-12.3) fL Immature Gran % (Auto) % Neut % (Auto) % Lymph % (Auto) % [place] % (Auto) % Eos % (Auto) % Baso % (Auto) % Neut # (Auto) (1.4-6.5) K/uL Lymph # (Auto) (1.2-3.4) K/uL [place] # (Auto) (0.24-0.82) K/uL Eos # (Auto) (0-0.50) K/uL Baso # (Auto) (0-0.2) K/uL Immature Gran # (Auto) (0.00-0.02) K/uL PT (9.0-12.0) Seconds INR (0.9-1.1) APTT (21.0-31.0) Seconds PTT Ratio Sodium (136-145) mmol/L Potassium (3.5-5.1) mmol/L Chloride (98-107) mmol/L Carbon Dioxide (21-32) mmol/L Anion Gap (3-11) BUN (6-23) mg/dl Creatinine (0.6-1.2) mg/dl Est Cr Clr Drug Dosing ml/min Est GFR ( Amer) ml/min Est GFR (Non-Af Amer) ml/min BUN/Creatinine Ratio (10-20) Glucose (70-99(Fasting)) mg/dl POC Glucose 76 (70-99) mg/dl Calcium (8.5-10.1) mg/dl Magnesium (1.7-2.4) mg/dl Total Bilirubin (0.2-1.0) mg/dl AST (13-39) U/L ALT (7-52) U/L Alkaline Phosphatase (34-104) U/L Troponin I High Sens (0-14) pg/ml Total Protein (6.0-8.3) gm/dl Albumin (3.4-5.0) gm/dl Globulin (2.5-4.0) gm/dl Albumin/Globulin Ratio (0.9-2) HCG, Qual Negative (Negative) SARS-CoV-2, RNA, NAAT NEGATIVE (NEGATIVE) Imaging Data Attestation: I personally reviewed and interpreted this imaging study as follows: My Impression: Head CTno hemorrhage or mass-effect seen Radiologist's Impression: Head CT 12/29/21 18:26 CT OF THE HEAD WITHOUT CONTRAST CLINICAL HISTORY: Stroke Like Symptoms COMPARISON STUDY: No previous studies for comparison. CT DOSE: 1008.49 mGy.cm TECHNIQUE: Helical axial images of the head were obtained without IV contrast. Automated exposure control was utilized for the study. A dose lowering technique was utilized adhering to the principles of ALARA. FINDINGS: No acute intracranial hemorrhage, midline shift or mass effect is present. The ventricular system is unremarkable. The basal cisterns are patent. No extra-axial collections are present. There are no findings to suggest acute dural sinus thrombosis or acute territorial infarct. No significant calvarial abnormalities are present. Small air-fluid level within left maxillary sinus is noted. Ethmoid sinus mucosal thickening is noted. There is also polypoid mucosal thickening within the remainder of the sinuses. Thickening within the nasal ca vity is noted with indistinctness of portions of the nasal septum. IMPRESSION: 1. No acute intracranial findings. 2. Findings suggestive of acute sinusitis, as described above. Mucosal thickening/soft tissue within the nasal cavity with indistinctness of the nasal septum. Nasal septal erosion cannot be excluded. Findings partially visualized on this exam. ACT 112: Negative or not required by law. Electronically signed by: Mirza Helms M.D. 12/29/2021 6:40 PM Head CTA 12/29/21 18:26 CTA ANGIOGRAPHY OF THE HEAD CLINICAL HISTORY: Stroke Like Symptoms COMPARISON STUDY: No previous studies for comparison. TECHNIQUE: Helical axial images of the head were obtained following uneventful intravenous administration of 121 cc of Optiray. Sagittal and coronal reconst ructions were viewed as well as maximal intensity projections on an independent 3-D workstation. Automated exposure control was utilized for the study. A dose lowering technique was utilized adhering to the principles of ALARA. FINDINGS: The bilateral M1, M2, A1 and A2 segments are patent. There is persistence of the right posterior cerebral artery. No central vessel occlusion is identified. No intracranial aneurysm is identified. Posterior circulation is intact. Moderate polypoid mucosal thickening within the sinuses is noted. Air- fluid level within the left maxillary sinus is noted. There is extensive mucosal thickening within the nasal cavity and ethmoid sinuses. Major drainage pathways are clear. Indistinctness of the nasal septum is noted. No clear bony destruction is present. Mastoid air cells are clear. IMPRESSION: 1. No central vessel occlusion. No intracranial aneurysm. 2. Polypoid mucosal thickening of the sinuses and nasal cavity, as described above. Left maxillary sinus air-fluid level consistent with acute sinusitis. Occluded major drainage pathways. ACT 112: Negative or not required by law. Electronically signed by: Mirza Helms M.D. 12/29/2021 6:59 PM Neck CTA 12/29/21 18:26 CT ANGIOGRAPHY OF THE NECK WITH CONTRAST CLINICAL HISTORY: Stroke Like Symptoms COMPARISON STUDY: No previous studies for comparison. Technique: CT angiography of the carotid and vertebral arteries was obtained using Optiray and 3D reconstruction on an independent workstation. NASCET criteria was utilized. Automated exposure control was utilized for the study. A dose lowering technique was utilized adhering to the principles of ALARA. Findings: No acute cervical spine fracture is noted. Visualized portions of the lung apices are unremarkable. The bilateral common carotid, cervical internal carotid and vertebral arteries are patent. There is no stenosis or dissection within these vessels. No aneurysm within the neck is noted. Paranasal sinus disease is better depicted on the head CTA which will be reported separately. IMPRESSION: Unremarkable CTA of the neck. ACT 112: Negative or not required by law. Electronically signed by: Mirza Helms M.D. 12/29/2021 6:52 PM Brain MRI 12/29/21 19:26 MRI OF THE BRAIN WITHOUT CONTRAST CLINICAL HISTORY: dizziness, evaluate for stroke. COMPARISON STUDY: Head CT and CTA of the head performed earlier today. TECHNIQUE: Utilizing a 1.5 Siobhan magnet and dedicated coil, multiplanar, multiecho imaging of the brain was performed without IV contrast. FINDINGS: There are no foci of restricted diffusion to suggest acute infarct. No acute intracranial hemorrhage, midline shift or mass effect is present. Ventricular system is normal. Basal cisterns are patent. There are no extra- axial collections. Flow-voids for the major intracranial vessels are present. Calvarial signal is normal. Air-fluid level within the left maxillary sinus is noted. There is extensive ethmoid sinus mucosal thickening. There is also polypoid mucosal thickening of the remainder of the sinuses. There is extensive mucosal thickening/soft tissue within the nasal cavity. Indistinctness of portions of the nasal septum are noted. No intracranial extension is identified on this exam. IMPRESSION: 1. No acute intracranial findings. Unremarkable unenhanced MRI of the brain parenchyma. 2. Acute sinusitis, as described above. Extensive soft tissue/mucosal thickening within the nasal cavity with indistinctness of the nasal septum. ACT 112: Negative or not required by law. Electronically signed by: Mirza Helms M.D. 12/29/2021 8:54 PM ECG Data Attestation: I personally reviewed and interpreted this ECG as follows: Indication: + weakness Rate (beats per minute): 75 Rhythm: + normal sinus ECG Intervals/blocks: + Normal QRS, + Normal QT and + Normal ND ECG [place]: + Normal ECG ST segments: + Normal ST segments ECG Findings: + PACs and + PVCs Comparison ECG Date: no prior available MDM Narrative This patient comes in as described above. She was seen by the nurse who thought she was having strokelike symptoms so we called a stroke alert. She apparently had a last well-known of 2:00 so at present she is just over 4 and half hours additionally her symptoms seem very mild so I do not think she is likely a candidate. I did however call a stroke alert and talk to Dr. Cuadra who will evaluate her a teleneurology standpoint. She was hydrated normal saline multiple blood testing was obtained she had a CAT scan of her head as well as CT A of the head and neck. She was reassessed frequently. CAT scans did not show any acute stroke or mass-effect or any vascular disease. She does have sinus disease. She has no white count or fever to suggest infection. She has no meningeal signs or stiffness. She has no severe electrolyte or metabolic abnormality. test was negative. She was evaluated by stroke neurology. He did recommend an MRI and observation in the hospital MRI was negative. The patient will need further observed in the hospital. I have consulted with . Continuous cardiac monitoring: Orders placed in EMR for continuous cardiac monitoring. Upon my interpretation, the patient noted to be in normal sinus rhythm with a rate of 75 Impression & Plan TIA (transient ischemic attack), Dizziness, Transient neurological symptoms, Not currently , Lab test negative for COVID-19 virus Discharge Plan Visit Data Chief Complaint: Dizziness Stated Complaint: DIZZINESS, R ARM IS HEAVY, CONFUSION ED Provider: Farooq Jones Discharge Problem: TIA (transient ischemic attack), Dizziness, Transient neurological symptoms, Not currently , Lab test negative for COVID-19 virus
[2021-12-29 18:35] LABS: Basophils # (auto) 0.03 K/uL (0-0.2); Basophils % (auto) 0.4 %; Eosinophils # (auto) 0.34 K/uL (0-0.50); Hematocrit (blood only) 41.1 % (34.1-44.9); Hemoglobin 13.6 g/dl (12.0-16.0); Immature Granulocytes # (auto) 0.04 K/uL (0.00-0.02); Immature Granulocytes % (auto) 0.5 %; Lymphocytes # (auto) 1.88 K/uL (1.2-3.4); Lymphocytes % (auto) 22.2 %; Mean Corpuscular Hgb Conc 33.1 g/dL (32.0-36.0); Mean Corpuscular Volume 81.7 fL (80.0-100.0); Mean Platelet Volume 9.7 fL (9.4-12.3); Monocytes % (auto) 5.9 %; Neutrophils # (auto) 5.67 K/uL (1.4-6.5); Platelet Count 232 K/uL (130-400); RDW Coefficient of Variation 13.6 % (11.5-14.5); RDW Standard Deviation 39.6 fL (36.4-46.3); Red Blood Count 5.03 M/uL (3.93-5.22); White Blood Count 8.46 K/ul (4.8-10.8)
[2021-12-29] MEDS ORDERED: OPTIRAY 320 125ml IV ONE (18:37)
--- NOTE | 2021-12-29 18:42 | CT Scan Report ---
CT OF THE HEAD WITHOUT CONTRAST CLINICAL HISTORY: Stroke Like Symptoms COMPARISON STUDY: No previous studies for comparison. CT DOSE: 1008.49 mGy.cm TECHNIQUE: Helical axial images of the head were obtained without IV contrast. Automated exposure con trol was utilized for the study. A dose lowering technique was utilized adhering to the principles o f ALARA. FINDINGS: No acute intracranial hemorrhage, midline shift or mass effect is present. The ventricular system is unremarkable. The basal cisterns are patent. No extra-axial collections are present. There are no findings to suggest acute dural sinus thrombosis or acute territorial infarct. No significant calvarial abnormalities are present. Small air-fluid level within left maxillary sinus is noted. Ethm oid sinus mucosal thickening is noted. There is also polypoid mucosal thickening within the remainder of the sinuses. Thickening within the nasal cavity is noted with indistinctness of portions of the n khai septum. IMPRESSION: 1. No acute intracranial findings. 2. Findings suggestive of acute sinusitis, as described above. Mucosal thickening/soft tissue within the nasal cavity with indistinctness of the nasal septum. Nasal septal erosion cannot be excluded. Fi ndings partially visualized on this exam. ACT 112: Negative or not required by law. Electronically signed by: Mirza Helms M.D. 12/29/2021 6:40 PM
--- NOTE | 2021-12-29 18:54 | CT Scan Report ---
CT ANGIOGRAPHY OF THE NECK WITH CONTRAST CLINICAL HISTORY: Stroke Like Symptoms COMPARISON STUDY: No previous studies for comparison. Technique: CT angiography of the carotid and vertebral arteries was obtained using Optiray and 3D rec onstruction on an independent workstation. NASCET criteria was utilized. Automated exposure control was utilized for the study. A dose lowering technique was utilized adhering to the principles of ALA RA. Findings: No acute cervical spine fracture is noted. Visualized portions of the lung apices are unrem arkable. The bilateral common carotid, cervical internal carotid and vertebral arteries are patent. T here is no stenosis or dissection within these vessels. No aneurysm within the neck is noted. Paranas al sinus disease is better depicted on the head CTA which will be reported separately. IMPRESSION: Unremarkable CTA of the neck. ACT 112: Negative or not required by law. Electronically signed by: Mirza Helms M.D. 12/29/2021 6:52 PM
--- NOTE | 2021-12-29 19:01 | CT Scan Report ---
CTA ANGIOGRAPHY OF THE HEAD CLINICAL HISTORY: Stroke Like Symptoms COMPARISON STUDY: No previous studies for comparison. TECHNIQUE: Helical axial images of the head were obtained following uneventful intravenous administr ation of 121 cc of Optiray. Sagittal and coronal reconstructions were viewed as well as maximal inten sity projections on an independent 3-D workstation. Automated exposure control was utilized for the study. A dose lowering technique was utilized adhering to the principles of ALARA. FINDINGS: The bilateral M1, M2, A1 and A2 segments are patent. There is persistence of the righ t posterior cerebral artery. No central vessel occlusion is identified. No intracranial aneurysm is i dentified. Posterior circulation is intact. Moderate polypoid mucosal thickening within the sinuses i s noted. Air-fluid level within the left maxillary sinus is noted. There is extensive mucosal thicken ing within the nasal cavity and ethmoid sinuses. Major drainage pathways are clear. Indistinctness of the nasal septum is noted. No clear bony destruction is present. Mastoid air cells are clear. IMPRESSION: 1. No central vessel occlusion. No intracranial aneurysm. 2. Polypoid mucosal thickening of the sinuses and nasal cavity, as described above. Left maxillary si nus air-fluid level consistent with acute sinusitis. Occluded major drainage pathways. ACT 112: Negative or not required by law. Electronically signed by: Mirza Helms M.D. 12/29/2021 6:59 PM
[2021-12-29 19:05] LABS: Albumin Globulin Ratio 1.5 (0.9-2); Albumin Level 4.7 gm/dl (3.4-5.0); BUN Creatinine Ratio 25.9 (10-20); Bilirubin,Total 0.4 mg/dl (0.2-1.0); Creatinine Clr Calc Pharmacy 136.5 ml/min; Est GFR (African American) 140.4 ml/min; Est GFR (Non-African American) 121.1 ml/min; Globulin 3.1 gm/dl (2.5-4.0); Magnesium 1.9 mg/dl (1.7-2.4); Potassium 3.8 mmol/L (3.5-5.1); Total Protein 7.8 gm/dl (6.0-8.3)
[2021-12-29 19:08] LABS: Pregnancy Test, Serum Negative (Negative); Troponin I High Sensitivity 3.4 pg/ml (0-14)
[2021-12-29 19:24] LABS: INR 0.9 (0.9-1.1); Partial Thromboplastin Ratio 0.9; Partial Thromboplastin Time 25.3 Seconds (21.0-31.0); Prothrombin Time 9.8 Seconds (9.0-12.0)
--- NOTE | 2021-12-29 20:56 | Magnetic Resonance Report ---
MRI OF THE BRAIN WITHOUT CONTRAST CLINICAL HISTORY: dizziness, evaluate for stroke. COMPARISON STUDY: Head CT and CTA of the head performed earlier today. TECHNIQUE: Utilizing a 1.5 Siobhan magnet and dedicated coil, multiplanar, multiecho imaging of the bra in was performed without IV contrast. FINDINGS: There are no foci of restricted diffusion to suggest acute infarct. No acute intracranial h emorrhage, midline shift or mass effect is present. Ventricular system is normal. Basal cisterns are patent. There are no extra-axial collections. Flow-voids for the major intracranial vessels are prese nt. Calvarial signal is normal. Air-fluid level within the left maxillary sinus is noted. There is ex tensive ethmoid sinus mucosal thickening. There is also polypoid mucosal thickening of the remainder of the sinuses. There is extensive mucosal thickening/soft tissue within the nasal cavity. Indistinct ness of portions of the nasal septum are noted. No intracranial extension is identified on this exam. IMPRESSION: 1. No acute intracranial findings. Unremarkable unenhanced MRI of the brain parenchyma. 2. Acute sinusitis, as described above. Extensive soft tissue/mucosal thickening within the nasal cav ity with indistinctness of the nasal septum. ACT 112: Negative or not required by law. Electronically signed by: Mirza Helms M.D. 12/29/2021 8:54 PM
--- NOTE | 2021-12-29 22:56 | History and Physical Report ---
DATE OF ADMISSION: 12/29/2021. CHIEF COMPLAINT: Dizziness and right-sided heavy feeling. HISTORY OF PRESENT ILLNESS: A 35-year-old female with past medical history significant for empty sella turcica, alopecia areata, history of iron-deficiency anemia, history of severe preeclampsia during last , seems to be around 03/2021. Patient is . Presents with dizziness that started around 2:00 p.m. and she felt some blurred vision, some floaters in the eyes and right upper extremity felt heavy and later right leg felt heavy and she came to the ER. Stroke alert was called; by that time, symptoms also improved. Initial CT of the head and CTA of the head and neck were unremarkable. [facility] recommended to observe in the hospital and MRI of the head. MRI of the head also came back normal. Her symptoms have completely resolved except she reports she is still feeling blurred vision and some floaters in the eyes. Says She had similar episode once before after first .Resting comfortably, hemodynamically stable. Blood pressure running okay. [place] nauseous when she was having imaging studies, but okay now. Denies any headache. No runny nose, no earache, no sore throat, no cough, no fever, no chills. No difficulty swallowing. No slurred speech. Speech is okay. No chest pain, no shortness of breath, no abdominal pain. Normal bowel and bladder movements. Otherwise, she is ambulating okay. Patient seems to understand Singaporean but requested to use diamond die polisher. ALLERGIES: No known drug allergies. PAST MEDICAL HISTORY: As mentioned above. PAST SURGICAL HISTORY: C-sections, removal of adenoids. MEDICATIONS: Multivitamins, iron supplements, vitamin D supplement. FAMILY HISTORY: No family history on file. SOCIAL HISTORY: , no smoking, no alcohol, no drug use. REVIEW OF SYSTEMS: As per HPI. Rest of the review of systems is negative. PHYSICAL EXAMINATION: GENERAL: The patient is of moderate build, not in acute distress. VITAL SIGNS: Temperature 36.7, pulse 65, respiratory rate 18, blood pressure 131/92, oxygen 98% on room air. HEENT: Pupils equal, round and reactive to light. Extraocular muscles intact. No facial droop. Speech is clear. Tongue is midline. NECK: No JVD. No neck masses. CARDIOVASCULAR: S1 and S2 heard. Regular rate and rhythm. No murmur, no gallop. RESPIRATORY SYSTEM: Normal AP diameter. No accessory muscle use. No wheezing, no crackles. ABDOMEN: Soft, bowel sounds present, nontender, no distention. CENTRAL NERVOUS SYSTEM: Alert and oriented. Speech is clear. No facial droop. Power 5/5 in all extremities. Sensations intact. No pronator drift. Coordination of movements normal. Nwubjp-zl-uuti test normal. Position sense intact. EXTREMITIES: No edema, no erythema. LABORATORY DATA: WBC is 8.4, hemoglobin 13.6, hematocrit 41.1, platelets 232. PT 9.8, INR 0.9, APTT 25.3. Sodium 137, potassium 3.8, chloride 102, bicarbonate 25, BUN 15, creatinine 0.5, serum glucose 89, calcium 11, magnesium 1.9, total bilirubin 0.4, AST 17, ALT 15, alkaline phosphatase 135. Troponin I high sensitivity 33.4. HCG qualitative negative. SARS-CoV-2 rapid test negative. Brain MRI: No acute intracranial findings, acute sinusitis. CTA of the head and neck: Unremarkable CT of the neck. Unremarkable CT of the head. No central vessel occlusion, no intracranial aneurysm, left maxillary sinusitis. CT of the head without contrast: No acute findings. EKG: Normal sinus rhythm at a rate of 75, no acute ST-T changes seen. ASSESSMENT AND PLAN: This is a 35-year-old female who presents with stroke-like symptoms. 1. Stroke-like symptoms with dizziness, some blurred visions, floaters and some heaviness in the right upper and lower extremity: Symptoms mostly resolved except still has some blurred vision and floaters. Imaging studies are unremarkable. We will observe in the hospital. We will get echocardiogram, Neuro evaluaton speech therapy and physical therapy and occupational therapy. Gentle fluids for now. 2. History of iron-deficiency anemia: Hemoglobin is 13.6 3. Sinusitis: Needs followup. 4. Deep venous thrombosis prophylaxis: Sequential compression devices for now. DISPOSITION: Admit to [facility]. Expect to discharge home and follow with family doctor. Job ID: [id number] [facility]
[2021-12-29] MEDS ORDERED: ONDANSETRON INJ 2 MG/ML 2 ML VIAL IV PRN (23:13)
[2021-12-29] MEDS ORDERED: PHARMACIST DISCHARGE MED REC CONSULT PRN (23:13)
[2021-12-29] MEDS ORDERED: ACETAMINOPHEN 325 MG TAB PO PRN (23:13)
[2021-12-30] MEDS: SODIUM CHLORIDE 0.45 % 1,000 ML IV SCH ×2 (00:24→11:24)
[2021-12-30 05:49] LABS: Basophils # (auto) 0.02 K/uL (0-0.2); Basophils % (auto) 0.3 %; Eosinophils # (auto) 0.34 K/uL (0-0.50); Eosinophils % (auto) 5.7 %; Hemoglobin 11.8 g/dl (12.0-16.0); Immature Granulocytes # (auto) 0.04 K/uL (0.00-0.02); Immature Granulocytes % (auto) 0.7 %; Lymphocytes # (auto) 1.63 K/uL (1.2-3.4); Lymphocytes % (auto) 27.2 %; Mean Corpuscular Hemoglobin 26.6 pg (25.0-34.0); Mean Corpuscular Hgb Conc 32.8 g/dL (32.0-36.0); Mean Corpuscular Volume 81.1 fL (80.0-100.0); Mean Platelet Volume 9.9 fL (9.4-12.3); Monocytes # (auto) 0.38 K/uL (0.24-0.82); Monocytes % (auto) 6.3 %; Neutrophils # (auto) 3.59 K/uL (1.4-6.5); Neutrophils % (auto) 59.8 %; Platelet Count 203 K/uL (130-400); RDW Coefficient of Variation 13.8 % (11.5-14.5); RDW Standard Deviation 39.8 fL (36.4-46.3); Red Blood Count 4.44 M/uL (3.93-5.22)
[2021-12-30 06:21] LABS: Calcium 9.1 mg/dl (8.5-10.1); Chol HDL Ratio 3.2 (0-5); Creatinine Clr Calc Pharmacy 149.1 ml/min; Est GFR (African American) 141.8 ml/min; Est GFR (Non-African American) 122.4 ml/min; Potassium 3.6 mmol/L (3.5-5.1)
[2021-12-30 06:43] LABS: Estimated Average Glucose 105 mg/dl; Hemoglobin A1C 5.3 % (4.5-5.6)
[2021-12-30] MEDS: CHOLECALCIFEROL 400 UNITS 10 MCG TAB PO SCH (09:27)
[2021-12-30] MEDS: PRENATAL VITAMIN 1 TAB PO SCH (09:27)
--- NOTE | 2021-12-30 16:14 | Hospitalist Progress Note ---
Date of Service December 30, 2021 Assessment & Plan (1) TIA (transient ischemic attack): (2) Transient neurological symptoms: (3) Dizziness: Plan Stroke like symptoms Patient had preeclampsia during , delivery was in 04/[address] head, CTA and MRI brain are unremarkable Possible TIA Reviewed TTE which is unremarkable. However, study not optimal for evaluating for PFO. Discussed with Field Mechanic. TTE will be repeated tomorrow for better assessment Reviewed patient with Neurologist as well. Will follow up final recommendations Patient started on low dose aspirin A1c is normal BP was elevated on presentation. Currently much improved Stop IVF and monitor Continue tele monitoring Possible dc tomorrow Admission and Anticipated Discharge Date Admission Date: December 29, 2021 Subjective Patient seen and examined Reports no blurry vision at this time No focal weakness Reported some headache after resolution of RUE and RLE heaviness yesterday Denied any congestion at this time. Reports she gets occasional sinus congestion Denied fevers, chills Denied nausea, vomiting, abd pain, diarrhea Denied chest pain, cough, shortness of breath Denied dysuria, freq, urgency Physical Exam Constitutional: + well hydrated; no acute distress Eyes: PERRL, conjunctivae normal, anicteric sclerae ENMT: external ear and nose normal, oropharynx normal Respiratory: normal respiratory effort, lungs clear to auscultation Cardiovascular: Rate/Rhythm: regular rate and regular rhythm S1 S2 Gastrointestinal (Abdomen): normal bowel sounds, soft, nontender, no hepatosplenomegaly Musculoskeletal: no cyanosis or clubbing, extremities motor strength 5/5 Neurologic: PERRL, EOMI, accommodation nl, no face palsy, no dysarthria No focal neurologic deficits Psychiatric: A+Ox3, euthymic affect Results & Data Results & Data ([facility]) Vital Signs (Past 12 Hours) Vital Signs Temp Pulse Pulse Pulse Resp BP Pulse Ox 12/30/21 15:41 37.0 C 71 16 141/83 H 98 12/30/21 09:35 72 12/30/21 08:48 36.6 C 73 16 137/90 99 12/30/21 07:40 36.4 C L 71 24 128/89 98 O2 Del Method 12/30/21 15:41 Room Air 12/30/21 09:35 12/30/21 08:48 Room Air 12/30/21 07:40 Room Air Laboratory Results Abnormal lab results 12/29/21 12/29/21 12/30/21 Range/Units 18:24 18:24 05:06 Hgb 11.8 L (12.0-16.0) g/dl Immature Gran # (Auto) 0.04 H 0.04 H (0.00-0.02) K/uL Chloride (98-107) mmol/L Creatinine 0.58 L (0.6-1.2) mg/dl BUN/Creatinine Ratio 25.9 H (10-20) Glucose (70-99(Fasting)) mg/dl Calcium 11.0 H (8.5-10.1) mg/dl Alkaline Phosphatase 135 H (34-104) U/L Triglycerides (0-150) mg/dl VLDL Cholesterol, Calc (0-30) mg/dl 12/30/21 Range/Units 05:06 Hgb (12.0-16.0) g/dl Immature Gran # (Auto) (0.00-0.02) K/uL Chloride 109 H (98-107) mmol/L Creatinine 0.55 L (0.6-1.2) mg/dl BUN/Creatinine Ratio (10-20) Glucose 128 H (70-99(Fasting)) mg/dl Calcium (8.5-10.1) mg/dl Alkaline Phosphatase (34-104) U/L Triglycerides 204 H (0-150) mg/dl VLDL Cholesterol, Calc 41 H (0-30) mg/dl
[2021-12-30] MEDS: ASPIRIN 81 MG ECTAB PO SCH (16:53)
--- NOTE | 2021-12-30 18:26 | Progress Notes ---
DATE OF SERVICE: 12/30/2021. REASON FOR CONSULTATION: Possible transient ischemic attack. SUBJECTIVE: The patient is a 36-year-old presumed right-handed female. This history is obtained with the help of an Persian senior ui ux designer. I have reviewed her chart. She has a past medical history of an empty sella, alopecia areata, iron deficiency anemia and severe preeclampsia during last . She delivered a baby on March 2021 and is . The patient noted that sometime yesterday she felt nonspecifically lightheaded, but not vertiginous. She had blurring of her vision and some binoculardark floating things that looks like flies.. Her right arm felt heavy and later her right leg felt heavy. Neurologic symptoms lasted at least 1 hour and perhaps 2 hours thereafter, she had a throbbing headache with mild nausea. Although the chart indicates she had a similar episode after the of her first child, she reports that was also nonspecific lightheadedness, but not other neurologic symptoms. She denies a history of vascular headaches. She denies a history of throbbing headache, although it seems as if she may occasionally get a throbbing headache, with her menstrual cycle. She has no history of prior neurologic dysfunction. She has not recently hit her head or her neck. She has not recently been ill. As an outpatient after delivery, she was not known to have ongoing hypertension. She has no history of DVT, PE, cancer. There is no family history of early heart attack, stroke, or blood clotting. She is not on any estrogen replacement. She has not currently . MEDICAL HISTORY: As above. SURGICAL HISTORY: C-sections, removal of adenoids. HOME MEDICATIONS: Multiple vitamin, iron supplement, vitamin D. FAMILY HISTORY: Per above. SOCIAL HISTORY: Nonsmoking, nondrinking. When examined in the Emergency Room, her exam was unremarkable. Her MRI of the brain, which I have reviewed, is unremarkable. The venous sinuses appear to be patent have no evidence of venous infarction. There is acute sinusitis on the MRI of the brain. CTA of the head and neck shows no central vessel occlusion and no intracranial aneurysm. Cardiogram normal sinus rhythm, cannot rule out anterior infarct, age indeterminate. Echo was performed, but not with a bubble study. EF was 50-60. Left atrial size is normal. Systolic function is normal. No ASD. Microcavitation study suboptimal and will need to be repeated. White count, H and H and platelet count are normal. PT, PTT normal. Electrolytes unremarkable. Calcium 11.0 and on repeat 9, alkaline phosphatase 135, LDL 48. HCG negative. COVID testing negative. PHYSICAL EXAMINATION: Initially, the patient was markedly hypertensive, 165/105, 158/105, most recent was 141/83. The patient is awake and alert, in no distress. She appears to have alopecia areata There are no carotid bruits, no heart murmurs. Heart is regular rate and rhythm. Abdomen is soft and nontender. No calf swelling or tenderness is noted. Dorsalis pedis pulses are palpably symmetric as are radial pulses. Pupils are equal, round, and reactive to light. Optic nerves grossly were normal. There are normal mendoza, motility, facial sensation and facial symmetry. Tongue is midline. Speech is not dysarthric. Repetition, naming and 3-step commands are normal. There is no right/left confusion. Motor: Normal bulk and tone, full strength, no drift. Normal rapid alternating movements. Symmetric reflexes, downgoing toes. Xafngr-tv-laef and ehxd-ft-lhvt are normal. Sensation is intact bilaterally to light touch and temperature. IMPRESSION: Transient ischemic attack versus atypical migraine. PLAN: I would evaluate and treat this as if it was a transient ischemic attack as the patient is in relative period and has hypertension. rec ASA 81 mg daily. The patient should confirm with her institute director that they have no objections to her continuing to breastfeed while she is on asa. . Monitor blood pressure and if not approaching normal tension over time, consider treatment. The echo needs to be done with a bubble study. If there is a PFO, venous Doppler of the lower and upper extremities. Recommend hypercoagulable state workup. The patient should see me in followup post-discharge within 1 month. a Zio patch will be places at that time. I will check in tomorrow morning via chart to see the results of the echo. Otherwise, we will sign off. Please reconsult if there are questions or concerns. Job ID: [id number] [facility]TD[facility]
--- NOTE | 2021-12-30 18:40 | Electrocardiogram Report ---
Test Reason : Blood Pressure : / mmHG Vent. Rate : 075 BPM Atrial Rate : 075 BPM P-R Int : 156 ms QRS Dur : 084 ms QT Int : 364 ms P-R-T Axes : 039 -04 069 degrees QTc Int : 406 ms Normal sinus rhythm No previous ECGs available Confirmed by Matt Esteban ([id number]) on 12/30/2021 6:39:44 PM Referred By: REFERRED SELF Confirmed By:Geronimo Esteban
[2021-12-30] MEDS ORDERED: MELATONIN 3 MG TAB PO STA (21:50)
[2021-12-31 08:14] LABS: Basophils # (auto) 0.03 K/uL (0-0.2); Basophils % (auto) 0.4 %; Eosinophils # (auto) 0.38 K/uL (0-0.50); Eosinophils % (auto) 5.3 %; Hematocrit (blood only) 38.6 % (34.1-44.9); Hemoglobin 12.8 g/dl (12.0-16.0); Immature Granulocytes # (auto) 0.05 K/uL (0.00-0.02); Immature Granulocytes % (auto) 0.7 %; Lymphocytes # (auto) 1.65 K/uL (1.2-3.4); Mean Corpuscular Hemoglobin 26.9 pg (25.0-34.0); Mean Corpuscular Hgb Conc 33.2 g/dL (32.0-36.0); Mean Corpuscular Volume 81.3 fL (80.0-100.0); Monocytes # (auto) 0.43 K/uL (0.24-0.82); Neutrophils # (auto) 4.62 K/uL (1.4-6.5); Neutrophils % (auto) 64.6 %; Platelet Count 228 K/uL (130-400); RDW Coefficient of Variation 13.7 % (11.5-14.5); RDW Standard Deviation 39.8 fL (36.4-46.3); Red Blood Count 4.75 M/uL (3.93-5.22); White Blood Count 7.16 K/ul (4.8-10.8)
[2021-12-31] MEDS: PRENATAL VITAMIN 1 TAB PO SCH (08:16)
[2021-12-31] MEDS: CHOLECALCIFEROL 400 UNITS 10 MCG TAB PO SCH (08:16)
[2021-12-31] MEDS: ASPIRIN 81 MG ECTAB PO SCH (08:16)
[2021-12-31 08:37] LABS: BUN Creatinine Ratio 22.8 (10-20); Calcium 10.4 mg/dl (8.5-10.1); Est GFR (African American) 140.2 ml/min; Potassium 3.9 mmol/L (3.5-5.1)
--- NOTE | 2021-12-31 12:58 | Progress Notes ---
COMMUNICATION NOTE DATE OF SERVICE: 12/31/2021. I have reviewed the results of the patient's echo and her bubble study shows minimal contrast or bubb les across the interatrial septum consistent with a small interatrial shunt or PFO. Based on that re sult, I have ordered an ultrasound venous Doppler of the upper and lower extremities to rule out DVT. Provided that is negative, I have no objections to the patient being discharged if there are no oth er issues keeping her hospitalized. My recommendations are previously noted. Please obtain or order a hypercoagulable state workup. We will review that upon discharge, likely wear a Zio patch and con c.o.d. clerk any role that the PFO may be playing in this event. Please contact me if you have any question s or concerns. We will sign off at present. Job ID: [id number]
--- NOTE | 2021-12-31 14:32 | Ultrasound Report ---
BILATERAL UPPER EXTREMITY VENOUS DOPPLER HISTORY: Rule out DVT in a pt with TIA and small patent foramen ovale. COMPARISON STUDY: None. FINDINGS: The bilateral internal jugular veins are patent. There is normal flow within the bilateral subclavian veins. There is normal flow and compressibility within the bilateral axillary, basilic, br achial, radial, ulnar, and visualized cephalic veins. IMPRESSION: No DVT within the right or left upper extremity. ACT 112: Negative or not required by law. Electronically signed by: Antione Schafer M.D. 12/31/2021 2:31 PM
--- NOTE | 2021-12-31 14:41 | Ultrasound Report ---
BILATERAL LOWER EXTREMITY VENOUS DOPPLER CLINICAL HISTORY: Rule out DVT in a pt with TIA and small pfo COMPARISON STUDY: No previous studies for comparison. TECHNIQUE: Sonography of the deep venous system of the bilateral lower extremities was performed. Co mpression and augmentation were evaluated. FINDINGS: The bilateral common femoral, superficial femoral and popliteal veins were compressible. A ugmentation was normal. Flow was shown within the deep calf vessels. IMPRESSION: No evidence of deep venous thrombus within the bilateral lower extremities. ACT 112: Negative or not required by law. Electronically signed by: Mirza Helms M.D. 12/31/2021 2:39 PM
[2021-12-31] MEDS ORDERED: STROKE PATIENT DISCHARGE STA (15:46)
--- NOTE | 2021-12-31 15:47 | Discharge Summary ---
Date of Service December 31, 2021 Admission HPI Per Admitting Provider A 35-year-old female with past medical history significant for empty sella turcica, alopecia areata, history of iron-deficiency anemia, history of severe preeclampsia during last , seems to be around 03/2021. Patient is . Presents with dizziness that started around 2:00 p.m. and she felt some blurred vision, some floaters in the eyes and right upper extremity felt heavy and later right leg felt heavy and she came to the ER. Stroke alert was called; by that time, symptoms also improved. Initial CT of the head and CTA of the head and neck were unremarkable. [facility] recommended to observe in the hospital and MRI of the head. MRI of the head also came back normal. Her symptoms have completely resolved except she reports she is still feeling blurred vision and some floaters in the eyes. Says She had similar episode once before after first .Resting comfortably, hemodynamically stable. Blood pressure running okay. Lewis nauseous when she was having imaging studies, but okay now. Denies any headache. No runny nose, no earache, no sore throat, no cough, no fever, no chills. No difficulty swallowing. No slurred speech. Speech is okay. No chest pain, no shortness of breath, no abdominal pain. Normal bowel and bladder movements. Otherwise, she is ambulating okay. Patient seems to understand Arabic but requested to use glove pairer. Admission Exam Per Admitting Provider GENERAL: The patient is of moderate build, not in acute distress. VITAL SIGNS: Temperature 36.7, pulse 65, respiratory rate 18, blood pressure 131/92, oxygen 98% on room air. HEENT: Pupils equal, round and reactive to light. Extraocular muscles intact. No facial droop. Speech is clear. Tongue is midline. NECK: No JVD. No neck masses. CARDIOVASCULAR: S1 and S2 heard. Regular rate and rhythm. No murmur, no gallop. RESPIRATORY SYSTEM: Normal AP diameter. No accessory muscle use. No wheezing, no crackles. ABDOMEN: Soft, bowel sounds present, nontender, no distention. CENTRAL NERVOUS SYSTEM: Alert and oriented. Speech is clear. No facial droop. Power 5/5 in all extremities. Sensations intact. No pronator drift. Coordination of movements normal. Dwuvpp-tb-ihmp test normal. Position sense intact. EXTREMITIES: No edema, no erythema. Principal Diagnosis Stroke like symptoms Possible TIA Discharge Exam Constitutional + well hydrated; no acute distress Eyes PERRL, conjunctivae normal, anicteric sclerae ENMT external ear and nose normal, oropharynx normal Respiratory normal respiratory effort, lungs clear to auscultation Cardiovascular Rate/Rhythm: regular rate and regular rhythm S1 S2 Gastrointestinal (Abdomen) normal bowel sounds, soft, nontender, no hepatosplenomegaly Musculoskeletal no cyanosis or clubbing, extremities motor strength 5/5 Neurologic PERRL, EOMI, accommodation nl, no face palsy, no dysarthria Psychiatric A+Ox3, euthymic affect Discharge Data Allergies Allergy/AdvReac Type Severity Reaction Status Date / Time No Known Allergies Allergy Verified 12/29/21 19:10 Consultations 12/29/21 20:30 ED Decision to Admit Stat 12/30/21 08:00 Consult Neurology Routine Ordered Studies 12/29/21 18:26 CT angio head w con Stat The bilateral M1, M2, A1 and A2 segments are patent. There is persistence of the right posterior cerebral artery. No central vessel occlusion is iesha ntified. No intracranial aneurysm is identified. Posterior circulation is intact. Moderate polypoid mucosal thickening within the sinuses is noted. Air- fluid level within the left maxillary sinus is noted. There is extensive mucosal thickening within the nasal cavity and ethmoid sinuses. Major drainage pathways are clear. Indistinctness of the nasal septum is noted. No clear bony destruction is present. Mastoid air cells are clear. IMPRESSION: 1. No central vessel occlusion. No intracranial aneurysm. 2. Polypoid mucosal thickening of the sinuses and nasal cavity, as described above. Left maxillary sinus air-fluid level consistent with acute sinusitis. Occluded major drainage pathways. CT angio neck with con Stat No acute cervical spine fracture is noted. Visualized portions of the lung apices are unremarkable. The bilateral common carotid, cervical internal carotid and vertebral arteries are patent. There is no stenosis or dissection within these vessels. No aneurysm within the neck is noted. Paranasal sinus disease is better depicted on the head CTA which will be reported separately. IMPRESSION: Unremarkable CTA of the neck. CT head/brain wo con Stat No acute intracranial hemorrhage, midline shift or mass effect is present. The ventricular system is unremarkable. The basal cisterns are patent. No extra- axial collections are present. There are no findings to suggest acute dural sinus thrombosis or acute territorial infarct. No significant calvarial abnormalities are present. Small air-fluid level within left maxillary sinus is noted. Ethmoid sinus mucosal thickening is noted. There is also polypoid mucosal thickening within the remainder of the sinuses. Thickening within the nasal cavity is noted with indistinctness of portions of the nasal septum. IMPRESSION: 1. No acute intracranial findings. 2. Findings suggestive of acute sinusitis, as described above. Mucosal thickening/soft tissue within the nasal cavity with indistinctness of the nasal septum. Nasal septal erosion cannot be excluded. Findings partially visualized on this exam. 12/29/21 19:26 MR brain wo con Stat There are no foci of restricted diffusion to suggest acute infarct. No acute intracranial hemorrhage, midline shift or mass effect is present. Ventricular system is normal. Basal cisterns are patent. There are no extra-axial collections. Flow-voids for the major intracranial vessels are present. Calvarial signal is normal. Air-fluid level within the left maxillary sinus is noted. There is extensive ethmoid sinus mucosal thickening. There is also polypoid mucosal thickening of the remainder of the sinuses. There is extensive mucosal thickening/soft tissue within the nasal cavity. Indistinctness of porti ons of the nasal septum are noted. No intracranial extension is identified on this exam. IMPRESSION: 1. No acute intracranial findings. Unremarkable unenhanced MRI of the brain parenchyma. 2. Acute sinusitis, as described above. Extensive soft tissue/mucosal thickening within the nasal cavity with indistinctness of the nasal septum. 12/31/21 11:29 US venous doppler LE BI Stat The bilateral common femoral, superficial femoral and popliteal veins were compressible. Augmentation was normal. Flow was shown within the deep calf vessels. IMPRESSION: No evidence of deep venous thrombus within the bilateral lower extremities. US venous doppler UE BI Stat The bilateral internal jugular veins are patent. There is normal flow within the bilateral subclavian veins. There is normal flow and compressibility within the bilateral axillary, basilic, brachial, radial, ulnar, and visualized cephalic veins. IMPRESSION: No DVT within the right or left upper extremity. Hospital Course (1) TIA (transient ischemic attack): (2) Transient neurological symptoms: (3) Dizziness: Plan Stroke like symptoms Patient had preeclampsia during , delivery was in 04/[address] head, CTA and MRI brain are unremarkable Possible TIA TTE noted aneurysmal atrial septum and small interatrial shunt of PFO A1c is normal at 5.3 Patient was started on Aspirin 81mg daily I discussed findings with patient, (on the phone) using [employer] nterpreter services. Patient needs to follow up with PCP for hypercoagulable workup, zio patch testing. Patient to follow up with Neurology outpatient BP was elevated on presentation. Currently normalized Total Time Total Time Spent Total Time Spent (In Minutes): 60 Total Time Includes: Examination of the Patient, Discharge Planning, Medication Reconciliation and Communication With Other Providers Discharge Plan Discharge Items Patient Disposition: Home - Self-Care Reason For Visit: DIZZINESS, R ARM IS HEAVY, CONFUSION Discharge Diagnosis: Stroke like symptoms Activity: Resume your previous activity Non-emergency contact: Primary Care Provider Call non-emergency contact if: you have any medication questions Follow-up/Referrals: Haylie Weaver PA-C [Physician Product Safety Administrator] - (Date & Time 02/02/2022 11:20 AM Provider Haylie Weaver PA-C Department Neurology [facility] ) Alisson Piedra MD [Outside Practitioners] - (Date & Time 01/07/2022 11:00 AM Provider Alisson Piedra MD Department [facility] ) Diet: Heart Healthy Addtl Attending Provider Instructions: Mrs Doyle You came to the hospital complaining of right arm heaviness and some visual field problems. You were evaluated extensively. Your MRI brain and CT head did not show any abnormalities. However your Echocardiogram showed a shunt in your heart. Your symptoms are resolved. These may be due to Transient ischemic attack, commonly referred to as 'mini stroke' You were started on low dose aspirin. It is important that your Primary Doctor who will perform hypercoagulable workup and zio patch testing. Please ensure follow up with Neurology. It was a pleasure taking care of you. Pending Studies at Discharge: No Stand-Alone Forms: Medications to Prevent Stroke, [facility], Smoking Cessation Medications and DC Order Prescriptions: New aspirin 81 mg Tablet,Delayed Release (Dr/Ec) 81 mg PO QAM Qty: 30 0RF Continued ferrous sulfate 325 mg (65 mg iron) Tablet,Delayed Release (Dr/Ec) 325 mg PO DAILY@08 Qty: 60 0RF cholecalciferol (vitamin D3) [Vitamin D3] 10 mcg (400 unit) Capsule 800 unit PO DAILY [id number] 1 mg Tablet 1 tab PO DAILY Discontinued amoxicillin 500 mg capsule 500 mg PO TID Rx Instructions: filled 12/15/2021 for 10 days Discharge Orders: Discharge Order (Routine); Ordered 12/31/21 Ordered By: Ashlee Davey Admission Data Admit Date/Time: 12/29/21 21:59 Attending Provider: Ashlee Davey I. Admit Provider: Xavi Salazar Primary Care Provider: Kiki Sorto Other Providers: aXvi Salazar ; Haylie Weaver ; Luiz To Kathleen ; Ramin Ames ; Yohana Flores Other Interventions: Discharge Summary Assessment (RN) Last Done: 12/31/21 16:02
--- NOTE | 2021-12-31 16:08 | Pharmacy Report ---
Pharmacist Stroke Counseling - Date of Service December 31, 2021 - Scope: Pharmacy has been consulted to provide medication discharge counseling for this patient admitted with possible transient ischemic attack as per the Pharmacist Discharge Counseling for Stroke Patients Protocol. - Medications on Discharge: Home Medications Medication Instructions Recorded Confirmed cholecalciferol (vitamin D3) 10 800 unit PO DAILY 04/15/21 12/29/21 mcg (400 unit) capsule (Vitamin D3) [id number] 1 mg 1 tab PO DAILY 04/15/21 12/29/21 tablet New Rx's Medication Instructions Recorded ferrous sulfate 325 mg (65 mg 325 mg PO DAILY@08 #60 tabs 02/22/19 iron) tablet,delayed release aspirin 81 mg tablet,delayed 81 mg PO QAM #30 tabs 12/31/21 release - Action: The above medications, specifically ones for stroke treatment/prophylaxis, have been reviewed in detail with the patient and/or patient industrial relations representative(s) prior to discharge. This includes indication, common adverse reactions, drug interactions, and medication administration. Medication counseling has been employed using the teach-back method to ensure understanding. - Outcome: The patient and/or patient industrial relations representative(s) have demonstrated understanding of the medications. Additional comments: Reviewed possible side effects of Aspirin, including s/s of bleeding and when to contact PCP with concerns. Patient is aware that if she would have a dental/medical procedure, she will need to discuss Aspirin use with them. Patient asked if it is ok to take Aspirin during her menstrual period. I assured her this is ok. Thank you for allowing pharmacy to be involved in the care of this patient. Please call [phone] with any additional questions
== END 2021-12-31 16:30 | disposition home or self-care (01) ==
LOC: ED 17:48 → EDINP 21:59 → INTOOBSV 21:59 → 2N 12-30 08:23
DX: R41.0 Disorientation, unspecified; J32.9 Chronic sinusitis, unspecified; R20.2 Paresthesia of skin; R42 Dizziness and giddiness

== ENCOUNTER 2022-12-16 18:26 | Inpatient (IN) ==
[2022-12-16] MEDS ORDERED: SODIUM CHLORIDE 0.9% 1000ML 1,000 ML IV SCH (18:45)
[2022-12-16] MEDS ORDERED: IOVERSOL 350 MG 125mL Prefilled Syringe IV ONE (18:51)
--- NOTE | 2022-12-16 18:53 | Emergency Department Note ---
Impression & Plan Stroke-like symptoms, Lightheadedness, Perioral numbness ED Provider Note INFORMANT: Patient and ED PROVIDER(S): Luiz Brown MD CHIEF COMPLAINT: Perioral numbness PLAN: Disposition: Admitted Condition: Good Outpatient prescription management: none Referral: None MEDICAL DECISION MAKING: Patient presented because of strokelike symptoms. Stroke alert was initiated. She did not have any headache on presentation. The patient had an unremarkable CT and CT angiography performed. [facility] Given her neurologic findings being extremely small he recommended against TNK and recommended MR imaging. He also asked for the patient to get a dose of magnesium as this may be related to an acephalgic migraine. We did discuss the patient's prior ED visit for headache but also noted she did not have any formal diagnosis of migraines in the past. He did not evaluate her over telestroke formally. Patient was given IV magnesium. On reassessment she was noting improvement of symptoms. [facility] Dr. Salazar. Case discussed and diagnostics were reviewed. Patient will be evaluated for admission. Prior to admission the patient did note having a mild headache. She was treated with Tylenol. Discussed with medical laboratory manager. After review of the information above and other included data, I feel the patient requires admission. Triage Nursing notes reviewed and agree them. Vital Signs: reviewed and remarkable for no significant abnormalities Prior /Outside records reviewed: Prior admission records reviewed. Differential diagnosis: TIA, CVA, Infection, dehydration, metabolic abnormality, hypo/hyperglycemia, electrolyte disturbance, anemia, hypoxia, cardiac sources, intracerebral event, toxicologic, neurologic, as well as other pathologies. Diagnostics, as interpreted by me: ECG: Twelve-lead ECG reveals normal sinus rhythm at 67 bpm. Poor R wave progression. No ST elevation or depression. Cardiac Monitoring: Cardiac monitoring ordered by me: The patient was placed on continuous cardiac monitoring and observed. It revealed a normal sinus rhythm at 60 beats per minute without ectopy or evidence of dysrhythmia. Medical decision rules: none Imaging studies: CT and CT angiography as above. No acute stroke or bleed noted. No aneurysm. HPI: The patient is a 36year old female who presents to the Emergency Room with complaints of perioral numbness. This started about 30 minutes prior to arrival and is persisting. The patient also notes the following associated symptoms, lightheadedness, dizziness, palpitations. The patient has taken baby aspirin for relieving factors. Current pain is rated as 0/10. is present and helps with history. Pt denies LOC, headache, fevers, chills, diaphoresis, visual changes, neck pain, chest pain, breathing difficulties, nausea, vomiting, abdominal pain, back pain, melena, hematochezia, urinary symptoms, weakness, lymphadenopathy, rash, or other complaints. PAST MEDICAL HISTORY: See Below, TIA PAST SURGICAL HISTORY: See Below, SOCIAL HISTORY: See Below, HOME MEDICATIONS: See Below ALLERGIES: See Below VITALS: See Below PHYSICAL EXAMINATION: GENERAL: Awake, alert, well appearing, no distress HENT: Normocephalic, atraumatic. TM's normal. Oropharynx unremarkable. EYES: PERRL. EOMI. Normal conjunctiva. Sclera non-icteric. NECK: Supple. Normal inspection. Non-tender. No nuchal rigidity. FROM. No br uit. RESPIRATORY: Breath sounds equal. No wheezes. No rhonchi. Normal respiratory effort. CARDIAC: Normal rate. Regular rhythm. No murmurs. No rubs. No JVD. GI: Soft, non distended. No tenderness to palpation. No rebound or guarding. No masses. RECTAL: Deferred. MUSCULOSKELETAL: Unremarkable. No edema. No discoloration. Gross motor strength symmetric. NEURO: Cranial nerves 2-12 grossly intact except for subjective tingling in the left perioral region. Normal sensorium. No sensory or motor deficits noted. Speech normal. SKIN: No rash or jaundice noted. LYMPH: No adenopathy. Past Med/Surg History Medical History Pre-eclampsia hx (on ASA) Surgical History History of adenoidectomy Previous section 2017 (emergent)- ?spinal vs. epidural: good pain control 02/19/19 (repeat c/s)- SAB at L3/L4 (x1 attempt) at [facility] Family History Other No pertinent family history Social History Smoking Status: Never smoker Second Hand Exposure: No; Do You Dip or Chew Tobacco: No; Hx Alcohol Use: No Hx Substance Use: No Preferred Language: Filipino Communication Ability: Effective Communication Tools: IPad Instructor Ground Services Required: No Beliefs That Will Affect Care: Sabianism Sabianism Beliefs: Uatsdin. marital status: Current Living Situation: Family current occupational status: unemployed Feels Safe at Home: Yes Assistive Devices: None Allergies Allergies Allergy/AdvReac Type Severity Reaction Status Date / Time No Known Allergies Allergy Verified 12/29/21 19:10 Home Meds Home Medications Medication Instructions Recorded Confirmed cholecalciferol (vitamin D3) 10 800 unit PO DAILY 04/15/21 12/29/21 mcg (400 unit) capsule (Vitamin D3) [id number] 1 mg 1 tab PO DAILY 04/15/21 12/29/21 tablet amitriptyline 25 mg tablet 25 mg PO HS 12/16/22 12/16/22 baricitinib 4 mg tablet (Olumiant) 4 mg PO DAILY 12/16/22 12/16/22 Previous Rx's Medication Instructions Recorded ferrous sulfate 325 mg (65 mg 325 mg PO DAILY@08 #60 tabs 02/22/19 iron) tablet,delayed release aspirin 81 mg tablet,delayed 81 mg PO QAM #30 tabs 12/31/21 release Results & Data (ED) Vital Signs Vital Signs - 24 hr 12/16/22 18:29 12/16/22 19:06 12/16/22 19:01 Temperature 37.1 C Temperature Source Temporal Artery Scan Pulse Rate 61 79 Pulse Rate from SpO2 Sensor Respiratory Rate 18 19 Respiratory Effort / Characteristics Non-Labored Respiratory Depth Normal Blood Pressure 166/110 H 161/103 H Blood Pressure Mean 128 122 Pulse Oximetry 100 99 Oxygen Delivery Method Room Air Room Air Room Air Sepsis Recent Fever Within 48 Hours No Sepsis New/Unexplained Change in Mental Status No Sepsis Action Taken by Nursing No Action Required 12/16/22 19:01 12/16/22 19:07 12/16/22 19:31 Temperature Temperature Source Pulse Rate 77 77 60 Pulse Rate from SpO2 Sensor 75 61 Respiratory Rate 17 20 Respiratory Effort / Characteristics Respiratory Depth Blood Pressure 151/103 H 140/88 Blood Pressure Mean 119 105 Pulse Oximetry 99 98 Oxygen Delivery Method Room Air Room Air Sepsis Recent Fever Within 48 Hours Sepsis New/Unexplained Change in Mental Status Sepsis Action Taken by Nursing Laboratory Data 12/16/22 18:44 12/16/22 18:44 Lab Results 12/16/22 12/16/22 12/16/22 Range/Units 18:44 18:44 18:44 WBC 9.77 (4.8-10.8) K/ul RBC 4.77 (4.20-5.40) M/uL Hgb 12.8 (12.0-16.0) g/dl POC Hgb (12.0-16.0) g/dl Hct 38.4 (37.0-47.0) % POC Hct (37-47) % MCV 80.5 (80.0-100.0) fL MCH 26.8 (25.0-34.0) pg MCHC 33.3 (32.0-36.0) g/dL RDW Std Deviation 42.2 (36.4-46.3) fL RDW Coeff of Arnie 14.3 (11.5-14.5) % Plt Count 248 (130-400) K/uL MPV 10.0 (9.4-12.4) fL Immature Gran % (Auto) 0.3 % Neut % (Auto) 66.9 % Lymph % (Auto) 23.0 % [place] % (Auto) 5.7 % Eos % (Auto) 3.7 % Baso % (Auto) 0.4 % Neut # (Auto) 6.53 H (1.40-6.50) K/uL Lymph # (Auto) 2.25 (1.2-3.4) K/uL [place] # (Auto) 0.56 (0.11-0.59) K/uL Eos # (Auto) 0.36 (0-0.50) K/uL Baso # (Auto) 0.04 (0-0.2) K/uL Immature Gran # (Auto) 0.03 (0.01-0.20) K/uL PT 10.3 (9.0-12.0) Seconds INR 0.9 (0.9-1.1) APTT 25.1 (21.0-31.0) Seconds PTT Ratio 0.9 POC Sodium (135-144) mmol/L Sodium (136-145) mmol/L POC Potassium (3.3-5.0) mmol/L Potassium (3.5-5.1) mmol/L POC Chloride (101-112) mmol/L Chloride (98-107) mmol/L Carbon Dioxide (21-32) mmol/L POC Total CO2 (24-31) mmol/L Anion Gap (3-11) POC Anion Gap (16-25) mmol/L POC BUN (7-18) mg/dl BUN (6-23) mg/dl Creatinine (0.6-1.2) mg/dl POC Creatinine (0.6-1.3) mg/dl Est Cr Clr Drug Dosing ml/min Est GFR ( Amer) ml/min Est GFR (Non-Af Amer) ml/min BUN/Creatinine Ratio (10-20) Glucose (70-99(Fasting)) mg/dl POC Glucose (other) (70-99) mg/dl Calcium (8.6-10.3) mg/dl POC Ioniz Calcium Raya (1.12-1.32) mmol/l Magnesium (1.7-2.4) mg/dl Total Bilirubin (0.2-1.0) mg/dl AST (13-39) U/L ALT (7-52) U/L Alkaline Phosphatase (34-104) U/L Troponin I High Sens (0-14) pg/ml Total Protein (6.0-8.3) gm/dl Albumin (3.4-5.0) gm/dl Globulin (2.5-4.0) gm/dl Albumin/Globulin Ratio (0.9-2) HCG, Quant mIU/ml SARS-CoV-2, RNA, NAAT (NEGATIVE) Blood Type B Positive Antibody Screen NEGATIVE 12/16/22 12/16/22 12/16/22 Range/Units 18:44 18:44 18:46 WBC (4.8-10.8) K/ul RBC (4.20-5.40) M/uL Hgb (12.0-16.0) g/dl POC Hgb 13.3 (12.0-16.0) g/dl Hct (37.0-47.0) % POC Hct 39 (37-47) % MCV (80.0-100.0) fL MCH (25.0-34.0) pg MCHC (32.0-36.0) g/dL RDW Std Deviation (36.4-46.3) fL RDW Coeff of Arnie (11.5-14.5) % Plt Count (130-400) K/uL MPV (9.4-12.4) fL Immature Gran % (Auto) % Neut % (Auto) % Lymph % (Auto) % [place] % (Auto) % Eos % (Auto) % Baso % (Auto) % Neut # (Auto) (1.40-6.50) K/uL Lymph # (Auto) (1.2-3.4) K/uL Macon # (Auto) (0.11-0.59) K/uL Eos # (Auto) (0-0.50) K/uL Baso # (Auto) (0-0.2) K/uL Immature Gran # (Auto) (0.01-0.20) K/uL PT (9.0-12.0) Seconds INR (0.9-1.1) APTT (21.0-31.0) Seconds PTT Ratio POC Sodium 140 (135-144) mmol/L Sodium 138 (136-145) mmol/L POC Potassium 3.6 (3.3-5.0) mmol/L Potassium 3.6 (3.5-5.1) mmol/L POC Chloride 105 (101-112) mmol/L Chloride 106 (98-107) mmol/L Carbon Dioxide 25 (21-32) mmol/L POC Total CO2 25 (24-31) mmol/L Anion Gap 7 (3-11) POC Anion Gap 14.0 L (16-25) mmol/L POC BUN 16 (7-18) mg/dl BUN 14 (6-23) mg/dl Creatinine 0.72 (0.6-1.2) mg/dl POC Creatinine 0.7 (0.6-1.3) mg/dl Est Cr Clr Drug Dosing 110.3 ml/min Est GFR ( Amer) 126.6 ml/min Est GFR (Non-Af Amer) 109.3 ml/min BUN/Creatinine Ratio 19.4 (10-20) Glucose 100 H (70-99(Fasting)) mg/dl POC Glucose (other) 104 H (70-99) mg/dl Calcium 10.5 H (8.6-10.3) mg/dl POC Ioniz Calcium Raya 1.31 (1.12-1.32) mmol/l Magnesium 2.0 (1.7-2.4) mg/dl Total Bilirubin 0.4 (0.2-1.0) mg/dl AST 20 (13-39) U/L ALT 16 (7-52) U/L Alkaline Phosphatase 117 H (34-104) U/L Troponin I High Sens < 2.3 (0-14) pg/ml Total Protein 7.6 (6.0-8.3) gm/dl Albumin 4.7 (3.4-5.0) gm/dl Globulin 2.9 (2.5-4.0) gm/dl Albumin/Globulin Ratio 1.6 (0.9-2) HCG, Quant < 1 mIU/ml SARS-CoV-2, RNA, NAAT (NEGATIVE) Blood Type Antibody Screen 12/16/22 Range/Units 19:55 WBC (4.8-10.8) K/ul RBC (4.20-5.40) M/uL Hgb (12.0-16.0) g/dl POC Hgb (12.0-16.0) g/dl Hct (37.0-47.0) % POC Hct (37-47) % MCV (80.0-100.0) fL MCH (25.0-34.0) pg MCHC (32.0-36.0) g/dL RDW Std Deviation (36.4-46.3) fL RDW Coeff of Arnie (11.5-14.5) % Plt Count (130-400) K/uL MPV (9.4-12.4) fL Immature Gran % (Auto) % Neut % (Auto) % Lymph % (Auto) % [place] % (Auto) % Eos % (Auto) % Baso % (Auto) % Neut # (Auto) (1.40-6.50) K/uL Lymph # (Auto) (1.2-3.4) K/uL [place] # (Auto) (0.11-0.59) K/uL Eos # (Auto) (0-0.50) K/uL Baso # (Auto) (0-0.2) K/uL Immature Gran # (Auto) (0.01-0.20) K/uL PT (9.0-12.0) Seconds INR (0.9-1.1) APTT (21.0-31.0) Seconds PTT Ratio POC Sodium (135-144) mmol/L Sodium (136-145) mmol/L POC Potassium (3.3-5.0) mmol/L Potassium (3.5-5.1) mmol/L POC Chloride (101-112) mmol/L Chloride (98-107) mmol/L Carbon Dioxide (21-32) mmol/L POC Total CO2 (24-31) mmol/L Anion Gap (3-11) POC Anion Gap (16-25) mmol/L POC BUN (7-18) mg/dl BUN (6-23) mg/dl Creatinine (0.6-1.2) mg/dl POC Creatinine (0.6-1.3) mg/dl Est Cr Clr Drug Dosing ml/min Est GFR ( Amer) ml/min Est GFR (Non-Af Amer) ml/min BUN/Creatinine Ratio (10-20) Glucose (70-99(Fasting)) mg/dl POC Glucose (other) (70-99) mg/dl Calcium (8.6-10.3) mg/dl POC Ioniz Calcium Raya (1.12-1.32) mmol/l Magnesium (1.7-2.4) mg/dl Total Bilirubin (0.2-1.0) mg/dl AST (13-39) U/L ALT (7-52) U/L Alkaline Phosphatase (34-104) U/L Troponin I High Sens (0-14) pg/ml Total Protein (6.0-8.3) gm/dl Albumin (3.4-5.0) gm/dl Globulin (2.5-4.0) gm/dl Albumin/Globulin Ratio (0.9-2) HCG, Quant mIU/ml SARS-CoV-2, RNA, NAAT NEGATIVE (NEGATIVE) Blood Type Antibody Screen Administered Medications Magnesium Sulfate/Dextrose (Magnesium Sulfate / D5w) 1 gm in 100 mls @ 50 mls/hr IV Q2H SUSIE Stop: 12/16/22 23:29 Last Infusion: 12/16/22 23:19 Dose: 0 mls/hr Documented By: Admin: 12/16/22 21:33 Dose: 50 mls/hr Documented By: Infusion: 12/16/22 21:31 Dose: 0 mls/hr Documented By: Admin: 12/16/22 19:30 Dose: 50 mls/hr Documented By: HUMBLE Discontinued Medications Acetaminophen (Acetaminophen 500 Mg Tab) 1,000 mg PO NOW STA Stop: 12/16/22 21:44 Last Admin: 12/16/22 21:47 Dose: 1,000 mg Documented By: STELLA Sodium Chloride (Nss 1000ml) 1,000 mls @ 125 mls/hr IV .Q8H SUSIE Stop: 01/15/23 18:44 Last Admin: 12/16/22 19:30 Dose: 125 mls/hr Documented By: HUMBLE Ioversol (Ioversol 350 Mg 125ml Prefilled Syringe) 115 ml IV ONCE ONE Stop: 12/16/22 18:52 Last Admin: 12/16/22 18:52 Dose: 115 ml Documented By: LIVE Imaging Data Radiologist's Impression: Head CT 12/16/22 18:36 CT head/brain wo con CLINICAL HISTORY: neuro deficit, acute stroke suspected Technique: Contiguous axial CT images of the head were acquired from the base of the skull to the vertex without intravenous contrast administration. Images were viewed in brain, subdural and bone windows. Automated dose lowering techniques and/or adjustment according to patient size were utilized for this exam. Comparison: None available at the time of this dictation. Findings: The ventricles, basal cisterns, and cerebral sulci are normal. There is no acute intracranial hemorrhage or evidence of acute territorial infarction. Neither mass effect, shift of the midline structures, nor abnormal extra-axial fluid collections are shown. Paranasal sinus disease is seen. The orbits appear normal. There are no acute fractures of the calvaria or scalp swelling. Impression: No acute intracranial hemorrhage, no evidence of acute territorial infarction or other acute intracranial disease process. ACT 112: Negative or not required by law. Electronically signed by: Tam Marshall M.D. 12/16/2022 7:02 PM Head CTA 12/16/22 18:36 CT angio neck with con, CT angio head w con CLINICAL HISTORY: neuro deficit, acute stroke suspected TECHNIQUE: CT angiography of the head and neck was performed following intraven ous administration of iodinated contrast. Coronal and sagittal MIPS were obtained from the axial data set and were submitted for review. Automated dose lowering techniques and/or adjustment according to patient size were utilized for this examination. All measurements were calculated based on NASCET criteria. Comparison: None available at the time of this dictation. FINDINGS: Lungs and soft tissues are unremarkable. CTA Neck: A 3 vessel aortic arch is shown. There is no significant athe rosclerotic plaque in the aortic arch or the origins of the innominate, left common carotid, and left subclavian arteries. The common carotid, external carotid, cervical segments of the internal carotid arteries, and the cervical segments of the vertebral arteries are patent without hemodynamically significant stenosis. The right vertebral artery is dominant. CTA Head: The anterior and posterior cerebral circulations are patent. No hemodynamically significant stenosis, aneurysm, dissection, or arteriovenous malformation is shown. IMPRESSION: 1. No occlusion, hemodynamically significant stenosis, or dissection in the major cervical arteries. 2. No occlusion, hemodynamically significant stenosis, aneurysm, dissection, or arteriovenous malformation in the major intracranial arteries. Assessment of stenosis of the internal carotid arteries is based on NASCET criteria. ACT 112: Negative or not required by law. Electronically signed by: Tam Marshall M.D. 12/16/2022 7:06 PM Neck CTA 12/16/22 18:36 CT angio neck with con, CT angio head w con CLINICAL HISTORY: neuro deficit, acute stroke suspected TECHNIQUE: CT angiography of the head and neck was performed following intr avenous administration of iodinated contrast. Coronal and sagittal MIPS were obtained from the axial data set and were submitted for review. Automated dose lowering techniques and/or adjustment according to patient size were utilized for this examination. All measurements were calculated based on NASCET criteria. Comparison: None available at the time of this dictation. FINDINGS: Lungs and soft tissues are unremarkable. CTA Neck: A 3 vessel aortic arch is shown. There is no significant atherosclerotic plaque in the aortic arch or the origins of the innominate, left common carotid, and left subclavian arteries. The common carotid, external carotid, cervical segments of the internal carotid arteries, and the cervical segments of the vertebral arteries are patent without hemodynamically significant stenosis. The right vertebral artery is dominant. CTA Head: The anterior and posterior cerebral circulations are patent. No hemodynamically significant stenosis, aneurysm, dissection, or arteriovenous malformation is shown. IMPRESSION: 1. No occlusion, hemodynamically significant stenosis, or dissection in the addie or cervical arteries. 2. No occlusion, hemodynamically significant stenosis, aneurysm, dissection, or arteriovenous malformation in the major intracranial arteries. Assessment of stenosis of the internal carotid arteries is based on NASCET criteria. ACT 112: Negative or not required by law. Electronically signed by: Tam Marshall M.D. 12/16/2022 7:06 PM Discharge Plan Visit Data Chief Complaint: Stroke Alert Stated Complaint: NUMBNESS ON LIPS,HEART RACING, ED Provider: Luiz Brown Discharge Problem: Stroke-like symptoms, Lightheadedness, Perioral numbness Patient Disposition: Admitted As Inpatient Discharge Instructions Interventions: ED Discharge Assessment Last Done: 12/16/22 22:42
[2022-12-16 18:56] LABS: Basophils # (auto) 0.04 K/uL (0-0.2); Basophils % (auto) 0.4 %; Eosinophils # (auto) 0.36 K/uL (0-0.50); Eosinophils % (auto) 3.7 %; Hematocrit (blood only) 38.4 % (37.0-47.0); Hemoglobin 12.8 g/dl (12.0-16.0); Immature Granulocytes # (auto) 0.03 K/uL (0.01-0.20); Immature Granulocytes % (auto) 0.3 %; Lymphocytes # (auto) 2.25 K/uL (1.2-3.4); Mean Corpuscular Hemoglobin 26.8 pg (25.0-34.0); Mean Corpuscular Hgb Conc 33.3 g/dL (32.0-36.0); Mean Corpuscular Volume 80.5 fL (80.0-100.0); Monocytes # (auto) 0.56 K/uL (0.11-0.59); Monocytes % (auto) 5.7 %; Neutrophils # (auto) 6.53 K/uL (1.40-6.50); Neutrophils % (auto) 66.9 %; Platelet Count 248 K/uL (130-400); RDW Coefficient of Variation 14.3 % (11.5-14.5); RDW Standard Deviation 42.2 fL (36.4-46.3); Red Blood Count 4.77 M/uL (4.20-5.40); White Blood Count 9.77 K/ul (4.8-10.8)
[2022-12-16 18:58] LABS: iSTAT Creatinine 0.7 mg/dl (0.6-1.3); iSTAT Hemoglobin 13.3 g/dl (12.0-16.0); iSTAT Ionized Calcium 1.31 mmol/l (1.12-1.32); iSTAT Potassium 3.6 mmol/L (3.3-5.0)
--- NOTE | 2022-12-16 19:03 | CT Scan Report ---
CT head/brain wo con CLINICAL HISTORY: neuro deficit, acute stroke suspected Technique: Contiguous axial CT images of the head were acquired from the base of the skull to the ramy raffi without intravenous contrast administration. Images were viewed in brain, subdural and bone [facility]. Automated dose lowering techniques and/or adjustment according to patient size were utilized for this exam. Comparison: None available at the time of this dictation. Findings: The ventricles, basal cisterns, and cerebral sulci are normal. There is no acute intracranial hemorrh age or evidence of acute territorial infarction. Neither mass effect, shift of the midline structures , nor abnormal extra-axial fluid collections are shown. Paranasal sinus disease is seen. The orbits appear normal. There are no acute fractures of the trey nilo or scalp swelling. Impression: No acute intracranial hemorrhage, no evidence of acute territorial infarction or other acute intracra nial disease process. ACT 112: Negative or not required by law. Electronically signed by: Tam Marshall M.D. 12/16/2022 7:02 PM
[2022-12-16 19:08] LABS: INR 0.9 (0.9-1.1); Partial Thromboplastin Ratio 0.9; Partial Thromboplastin Time 25.1 Seconds (21.0-31.0); Prothrombin Time 10.3 Seconds (9.0-12.0)
--- NOTE | 2022-12-16 19:09 | CT Scan Report ---
CT angio neck with con, CT angio head w con CLINICAL HISTORY: neuro deficit, acute stroke suspected TECHNIQUE: CT angiography of the head and neck was performed following intravenous administration of iodinated contrast. Coronal and sagittal MIPS were obtained from the axial data set and were submitt ed for review. Automated dose lowering techniques and/or adjustment according to patient size were u tilized for this examination. All measurements were calculated based on NASCET criteria. Comparison: None available at the time of this dictation. FINDINGS: Lungs and soft tissues are unremarkable. CTA Neck: A 3 vessel aortic arch is shown. There is no significant atherosclerotic plaque in the aor tic arch or the origins of the innominate, left common carotid, and left subclavian arteries. The co mmon carotid, external carotid, cervical segments of the internal carotid arteries, and the cervical segments of the vertebral arteries are patent without hemodynamically significant stenosis. The right vertebral artery is dominant. CTA Head: The anterior and posterior cerebral circulations are patent. No hemodynamically significan t stenosis, aneurysm, dissection, or arteriovenous malformation is shown. IMPRESSION: 1. No occlusion, hemodynamically significant stenosis, or dissection in the major cervical arteries. 2. No occlusion, hemodynamically significant stenosis, aneurysm, dissection, or arteriovenous malfor mation in the major intracranial arteries. Assessment of stenosis of the internal carotid arteries is based on NASCET criteria. ACT 112: Negative or not required by law. Electronically signed by: Tam Marshall M.D. 12/16/2022 7:06 PM
[2022-12-16 19:16] LABS: Alanine Aminotransferase 16 U/L (7-52); Albumin Globulin Ratio 1.6 (0.9-2); Albumin Level 4.7 gm/dl (3.4-5.0); Alkaline Phosphatase 117 U/L (34-104); Anion Gap 7 (3-11); Aspartate Aminotransferase 20 U/L (13-39); BUN Creatinine Ratio 19.4 (10-20); Bilirubin,Total 0.4 mg/dl (0.2-1.0); Blood Urea Nitrogen 14 mg/dl (6-23); Calcium 10.5 mg/dl (8.6-10.3); Carbon Dioxide 25 mmol/L (21-32); Chloride 106 mmol/L (98-107); Creatinine Clr Calc Pharmacy 110.3 ml/min; Est GFR (African American) 126.6 ml/min; Est GFR (Non-African American) 109.3 ml/min; Globulin 2.9 gm/dl (2.5-4.0); Glucose 100 mg/dl (70-99(Fasting)); Potassium 3.6 mmol/L (3.5-5.1); Sodium 138 mmol/L (136-145); Total Protein 7.6 gm/dl (6.0-8.3)
[2022-12-16 19:22] LABS: Troponin I High Sensitivity < 2.3 pg/ml (0-14)
[2022-12-16] MEDS: MAGNESIUM SULFATE / D5W 1 GM/100 ML BAG IV SCH ×2 (19:30→21:33)
[2022-12-16] MEDS ORDERED: ACETAMINOPHEN 500 MG TAB PO STA (21:43)
--- NOTE | 2022-12-16 21:53 | History & Physical Report ---
Date of Service December 16, 2022 Assessment & Plan (1) Stroke-like symptoms: Plan: 76-year-old female presents with strokelike symptoms. Strokelike symptoms As perioral numbness and left-sided face numbness Slight deviation of mouth left side Stroke alert was called CT head, CTA head and neck are unremarkable IV magnesium and fluids were given as per [place] neurology recommendations Patient took aspirin before coming to the hospital Plan to monitor in the hospital, MRI scan, echo, and neuro evaluation a.m. Speech and PT OT evaluation a.m. Patient had strokelike symptoms in the past and her work-up was unremarkable as mentioned in H&P Close monitoring in telemetry We will keep her n.p.o. continue IV fluids History of alopecia areata We will hold baricitinib for now History of anemia Hemoglobin stable Migraine variant Continue amitriptyline DVT prophylaxis SCDs Disposition to be determined Full code (2) Perioral numbness: History of Present Illness Chief Complaint: Strokelike symptoms Primary Care Provider: Alisson Piedra MD 36-year-old female past medical history significant for primary empty sella syndrome, chronic sinusitis, vitamin B12 deficiency, iron deficiency anemia following with heme-onc, alopecia areata, history of severe preeclampsia during around March 2021, history of stroke with symptoms and work-up was unremarkable in the hospital the past and followed up with neurology. At the time noted to have small left PFO but no DVT in the upper or lower extremities. Had Zio patch which was unremarkable. She had anticoagulant work-up and was unremarkable except for slight increase in protein S as per neurology notes in epic. Neurology started on amitriptyline for possible migraine variant in July 2022. Patient was also started on barcitinib for alopecia Aretta couple of months ago as per . As per she stopped taking aspirin currently. Patient is ARAB speaking and can speak a little Lebanese. Most of the H&P got from the and previous records. Today around 5:45 PM patient noticed numbness around the mouth and the tongue and the left side of the face and she took a dose of aspirin and came to the hospital. Stroke alert was called and initial CT head, CTA head and neck were unremarkable. Patient also having headache. Her numbness is slightly better. She neurology did not recommend tPA. Advised to give fluids and magnesium and work-up with MRI scan in the hospital. Patient is has still some numbness and numbness in the left side of face and and her mouth is slightly deviated to the left side. Tongue is slightly deviated to left side. Speech is okay. Did not try any swallowing in the ER. Able to ambulate in the ER to the bathroom. Denies any blurred visions or double visions. No earaches or runny nose. Feels very dizzy. No nausea. No abdominal pain. No chest pain or shortness of breath. Normal bowel and bladder movements. When she came in she was having some chest discomfort and palpitations but that got resolved now. Past medical history as mentioned above Past surgical history , removal of adenoids Social history no smoking, no alcohol use, no drug use. Family history father had a stroke in his 60s. Allergies Allergy/AdvReac Type Severity Reaction Status Date / Time No Known Allergies Allergy Verified 12/29/21 19:10 Home Medications Medication Instructions Recorded Confirmed Type ferrous sulfate 325 mg (65 mg 325 mg PO DAILY@08 #60 tabs 02/22/19 12/29/21 Rx iron) tablet,delayed release cholecalciferol (vitamin D3) 10 800 unit PO DAILY 04/15/21 12/29/21 History mcg (400 unit) capsule (Vitamin D3) [id number] 1 mg 1 tab PO DAILY 04/15/21 12/29/21 History tablet aspirin 81 mg tablet,delayed 81 mg PO QAM #30 tabs 12/31/21 Rx release amitriptyline 25 mg tablet 25 mg PO HS 12/16/22 12/16/22 History baricitinib 4 mg tablet (Olumiant) 4 mg PO DAILY 12/16/22 12/16/22 History Past Med/Surg History Medical History Pre-eclampsia hx (on ASA) Surgical History History of adenoidectomy Previous section 2017 (emergent)- ?spinal vs. epidural: good pain control 02/19/19 (repeat c/s)- SAB at L3/L4 (x1 attempt) at [facility] Family History Other No pertinent family history Social History Smoking Status: Never smoker Second Hand Exposure: No; Do You Dip or Chew Tobacco: No; Hx Alcohol Use: No Hx Substance Use: No Preferred Language: Lebanese Communication Ability: Effective Communication Tools: IPad Charger Operator Required: No Beliefs That Will Affect Care: Pentecostal Pentecostal Beliefs: Shinto. marital status: Current Living Situation: Family current occupational status: unemployed Feels Safe at Home: Yes Assistive Devices: None Review of Systems Review of Systems: All systems reviewed & are unremarkable except as noted in Subjective Physical Exam Physical Exam: General- Not in acute distress Head- atraumatic Eyes- PERRL, EOMI, ENT- oropharynx clear Neck- supple, no JVD, Lungs- clear to auscultation and percussion Heart- regular rhythm; no murmur, no gallop, no rub appreciated Abdomen- normal bowel sounds, soft, nontender, no masses or hepatosplenomegaly Extremities- no pretibial edema, no erythema seen. Neuro- alert, oriented x 3; PERRL, EOMI;Speech is ok. Insight ok. Numbness in left side of face, left side mouth and tounge deviation. power 5/5 in all extremities, no pronator drift. Skin- warm & dry Results & Data Results & Data Vital Signs (Past 12 Hours) Vital Signs Temp Pulse Pulse Resp BP BP Pulse Ox 12/16/22 21:29 57 L 18 160/100 H 98 12/16/22 19:31 60 20 140/88 98 12/16/22 19:07 77 17 151/103 H 99 12/16/22 19:01 77 12/16/22 19:01 79 19 161/103 H 99 12/16/22 19:06 12/16/22 18:29 37.1 C 61 18 166/110 H 100 O2 Del Method 12/16/22 21:29 Room Air 12/16/22 19:31 Room Air 12/16/22 19:07 Room Air 12/16/22 19:01 12/16/22 19:01 Room Air 12/16/22 19:06 Room Air 12/16/22 18:29 Room Air ECG Additional Comments: ECG normal sinus rhythm with a rate of 67. No significant change was found. Code Status & VTE Plan VTE Prophylaxis Plan VTE Prophylaxis will be ordered: Yes
[2022-12-16] MEDS ORDERED: NITROGLYCERIN SL 0.4 MG/TAB TAB SL PRN (23:07)
[2022-12-16] MEDS ORDERED: PHARMACIST DISCHARGE MED REC CONSULT PRN (23:07)
[2022-12-16] MEDS ORDERED: POLYETHYLENE (MIRALAX) 17 GM PACK PO PRN (23:07)
[2022-12-16] MEDS ORDERED: ACETAMINOPHEN 325 MG TAB PO PRN (23:07)
[2022-12-16] MEDS ORDERED: GADOBUTROL 65ML VIAL IV ONE (23:55)
[2022-12-17] MEDS: SODIUM CHLORIDE 0.9% 1000ML 1,000 ML IV SCH ×2 (00:27→09:37)
--- NOTE | 2022-12-17 01:38 | Magnetic Resonance Report ---
Exam(s): MRI HEAD W/WO Contrast IV Amt: 8.6cc gadavist EXAM: MR Head Without and With Intravenous Contrast CLINICAL HISTORY: Reason for exam: stroke like symptoms. TECHNIQUE: Magnetic resonance images of the head/brain without and with intravenous contrast in multiple planes. CONTRAST: Patient received 8.6cc gadavist of IV contrast COMPARISON: 12/29/2021 FINDINGS: Brain: Unremarkable. No mass. No hemorrhage. No acute infarct. Ventricles: Unremarkable. No ventriculomegaly. Bones/joints: Unremarkable. Sinuses: Small air-fluid levels within bilateral maxillary sinuses. Partial opacification of the right sphenoid sinus. Partial opacification of bilateral ethmoid air cells. Prominent soft tissue within the superior nasal cavities most consistent with engorged nasal turbinates.. Mastoid air cells: Unremarkable as visualized. No mastoid effusion. Orbits: Unremarkable as visualized. IMPRESSION: No acute findings in the head/brain. Sinus and nasal disease as described above not significantly changed compared to prior study of 12/29/2021. Electronically signed by: Peyman Jeffery M.D. 12/17/22 01:37 AM
[2022-12-17 06:08] LABS: Basophils # (auto) 0.03 K/uL (0-0.2); Basophils % (auto) 0.5 %; Eosinophils # (auto) 0.29 K/uL (0-0.50); Eosinophils % (auto) 4.9 %; Hematocrit (blood only) 33.2 % (37.0-47.0); Hemoglobin 11.3 g/dl (12.0-16.0); Immature Granulocytes # (auto) 0.02 K/uL (0.01-0.20); Immature Granulocytes % (auto) 0.3 %; Lymphocytes # (auto) 1.52 K/uL (1.2-3.4); Lymphocytes % (auto) 25.6 %; Mean Corpuscular Hemoglobin 26.7 pg (25.0-34.0); Mean Corpuscular Volume 78.3 fL (80.0-100.0); Mean Platelet Volume 9.9 fL (9.4-12.4); Monocytes % (auto) 6.7 %; Neutrophils # (auto) 3.68 K/uL (1.40-6.50); Platelet Count 193 K/uL (130-400); RDW Coefficient of Variation 14.5 % (11.5-14.5); RDW Standard Deviation 40.8 fL (36.4-46.3); Red Blood Count 4.24 M/uL (4.20-5.40); White Blood Count 5.94 K/ul (4.8-10.8)
[2022-12-17 06:27] LABS: BUN Creatinine Ratio 15.9 (10-20); Calcium 9.3 mg/dl (8.6-10.3); Chol HDL Ratio 3.1 (0-5); Creatinine Clr Calc Pharmacy 127.5 ml/min; Est GFR (African American) 135.6 ml/min; Potassium 3.5 mmol/L (3.5-5.1)
--- NOTE | 2022-12-17 08:18 | XRay Report ---
XR chest 1V portable CLINICAL HISTORY: neuro deficit, acute stroke suspected COMPARISON STUDY: Chest radiograph April 20, 2022. FINDINGS: Lung volumes are normal. Lungs are clear. There is no pneumothorax or pleural effusion. Car diac size is normal. Mediastinal contours are normal. There is no evidence for pulmonary edema. IMPRESSION: No acute cardiopulmonary findings. ACT 112: Negative or not required by law. Electronically signed by: iMrza Helms M.D. 12/17/2022 8:16 AM
--- NOTE | 2022-12-17 08:55 | Hospitalist Progress Note ---
Date of Service December 17, 2022 Assessment & Plan (1) Stroke-like symptoms: Plan: 76-year-old female presents with strokelike symptoms. Strokelike symptoms As perioral numbness and left-sided face numbness Slight deviation of mouth left side Stroke alert was called CT head, CTA head and neck are unremarkable IV magnesium and fluids were given as per [place] neurology recommendations Patient took aspirin before coming to the hospital Plan to monitor in the hospital MRI brain obtained - No acute findings in the head/brain. Echo -normal LV wall thickness. No regional wall motion abnormalities noted. EF 60 to 65%. RV is normal in size and function. There is no significant valve disease. The interatrial septum was previously assessed with the administration of agitated saline contrast on December 2021. Recent finding reported at the time of an aneurysmal with small interatrial shunt. This was not repeated at the time of the present study. 12/17 currently patient reports perioral numbness to be improved. No facial asymmetry no weakness in extremities. Discussed with neurology over the phone. Patient was not taking aspirin on daily basis, only took 1 hour prior to coming to the hospital. Recommend to continue with daily aspirin. Also recommend to obtain Dopplers to rule out DVTs given her PFO. Dopplers ordered. Rest of the recommendations as below. Neurology consulted - Pt w/ aneurysmal atrial septum and small PFO and recurrent strokelike episode. Patient recently started baricitinib for alopecia areata. This medication may sometimes produce neurologic symptoms such as slurred speech, headache and weakness. For the time being, I would recommend that patient hold this medication. However, I am uncertain of any causal relationship in her case at this time. She has been taking amitriptyline as an outpatient and follows with Dr. Haylie Galloway. Her MRI is unremarkable and negative for acute or subacute stroke. If she were to have additional strokelike episodes, would consider a referral to cardiology to discuss PFO closure. I would recommend checking an up-to-date venous Doppler to assess for DVT. She may continue with amitriptyline 25 mg at bedtime. However, going forward, it may be reasonable to consider switching from amitriptyline to verapamil which may be useful for prophylaxis of complicated migraine. Patient may follow-up with Dr. Haylie Galloway, local [facility] neurology. Speech and PT OT evaluation Patient had strokelike symptoms in the past and her work-up was unremarkable as mentioned in H&P Vit B12 level ordered Close monitoring in telemetry History of alopecia areata We will hold baricitinib for now History of anemia Hemoglobin stable Migraine variant Continue amitriptyline DVT prophylaxis SCDs Disposition -likely discharge home tomorrow Full code (2) Perioral numbness: Admission and Anticipated Discharge Date Admission Date: December 16, 2022 Subjective Pt is seen in follow up of stroke like symptoms She is sitting up in bed, in no acute distress Says periorbital numbness is improved Denies any other numbness or weakness, however reports to feel tired and weak overall Discussed with neurology, and Dopplers ordered to rule out DVTs Patient does not take aspirin on daily basis, only took 1 prior to coming to the hospital. Recommended to take it on a daily basis. Review of Systems Review of Systems: All systems reviewed & are unremarkable except as noted in Subjective Physical Exam Physical Exam: General- Not in acute distress Head- atraumatic Eyes- PERRL, EOMI, ENT- oropharynx clear Neck- supple, no JVD, Lungs- clear to auscultation and percussion Heart- regular rhythm; no murmur Abdomen- normal bowel sounds, soft, nontender Extremities- no pretibial edema, no erythema seen. Neuro- alert, oriented x 3; PERRL, EOMI; Speech is clear but slow. Answers appropriately. No facial asymmetry -this has resolved. No tongue deviation- this has also resolved. Insight ok. Moves all extremities without difficulty. Skin- warm & dry Results & Data Results & Data Vital Signs (Past 12 Hours) Vital Signs Temp Pulse Pulse Resp BP BP BP 12/17/22 07:38 36.3 C L 56 L 16 118/77 12/16/22 23:04 56 L 12/17/22 03:27 36.4 C L 63 16 124/81 12/16/22 23:14 36.9 C 56 L 16 152/92 H 12/16/22 22:42 60 18 133/84 12/16/22 21:29 57 L 18 160/100 H Pulse Ox O2 Del Method 12/17/22 07:38 97 Room Air 12/16/22 23:04 12/17/22 03:27 98 Room Air 12/16/22 23:14 98 Room Air 12/16/22 22:42 98 Room Air 12/16/22 21:29 98 Room Air Laboratory Results 12/17/22 12/17/22 12/17/22 Range/Units 05:27 05:27 05:27 WBC 5.94 (4.8-10.8) K/ul RBC 4.24 (4.20-5.40) M/uL Hgb 11.3 L (12.0-16.0) g/dl POC Hgb (12.0-16.0) g/dl Hct 33.2 L (37.0-47.0) % POC Hct (37-47) % MCV 78.3 L (80.0-100.0) fL MCH 26.7 (25.0-34.0) pg MCHC 34.0 (32.0-36.0) g/dL RDW Std Deviation 40.8 (36.4-46.3) fL RDW Coeff of Arnie 14.5 (11.5-14.5) % Plt Count 193 (130-400) K/uL MPV 9.9 (9.4-12.4) fL Immature Gran % (Auto) 0.3 % Neut % (Auto) 62.0 % Lymph % (Auto) 25.6 % [place] % (Auto) 6.7 % Eos % (Auto) 4.9 % Baso % (Auto) 0.5 % Neut # (Auto) 3.68 (1.40-6.50) K/uL Lymph # (Auto) 1.52 (1.2-3.4) K/uL [place] # (Auto) 0.40 (0.11-0.59) K/uL Eos # (Auto) 0.29 (0-0.50) K/uL Baso # (Auto) 0.03 (0-0.2) K/uL Immature Gran # (Auto) 0.02 (0.01-0.20) K/uL PT (9.0-12.0) Seconds INR (0.9-1.1) APTT (21.0-31.0) Seconds PTT Ratio POC Sodium (135-144) mmol/L Sodium 140 (136-145) mmol/L POC Potassium (3.3-5.0) mmol/L Potassium 3.5 (3.5-5.1) mmol/L POC Chloride (101-112) mmol/L Chloride 111 H (98-107) mmol/L Carbon Dioxide 23 (21-32) mmol/L POC Total CO2 (24-31) mmol/L Anion Gap 6 (3-11) POC Anion Gap (16-25) mmol/L POC BUN (7-18) mg/dl BUN 10 (6-23) mg/dl Creatinine 0.63 (0.6-1.2) mg/dl POC Creatinine (0.6-1.3) mg/dl Est Cr Clr Drug Dosing 127.5 ml/min Est GFR ( Amer) 135.6 ml/min Est GFR (Non-Af Amer) 117.0 ml/min BUN/Creatinine Ratio 15.9 (10-20) Glucose 100 H (70-99(Fasting)) mg/dl POC Glucose (other) (70-99) mg/dl Estimat Average Glucose Pending Hemoglobin A1c Pending Calcium 9.3 (8.6-10.3) mg/dl POC Ioniz Calcium Raya (1.12-1.32) mmol/l Magnesium (1.7-2.4) mg/dl Total Bilirubin (0.2-1.0) mg/dl AST (13-39) U/L ALT (7-52) U/L Alkaline Phosphatase (34-104) U/L Troponin I High Sens (0-14) pg/ml Total Protein (6.0-8.3) gm/dl Albumin (3.4-5.0) gm/dl Globulin (2.5-4.0) gm/dl Albumin/Globulin Ratio (0.9-2) Triglycerides 160 H (0-150) mg/dl Cholesterol 119 (0-200) mg/dl LDL Cholesterol, Calc 48 mg/dl VLDL Cholesterol, Calc 32 H (0-30) mg/dl HDL Cholesterol 39 mg/dl Cholesterol/HDL Ratio 3.1 (0-5) HCG, Quant mIU/ml SARS-CoV-2, RNA, NAAT (NEGATIVE) Blood Type Antibody Screen 12/16/22 12/16/22 12/16/22 Range/Units 19:55 18:46 18:44 WBC (4.8-10.8) K/ul RBC (4.20-5.40) M/uL Hgb (12.0-16.0) g/dl POC Hgb 13.3 (12.0-16.0) g/dl Hct (37.0-47.0) % POC Hct 39 (37-47) % MCV (80.0-100.0) fL MCH (25.0-34.0) pg MCHC (32.0-36.0) g/dL RDW Std Deviation (36.4-46.3) fL RDW Coeff of Arnie (11.5-14.5) % Plt Count (130-400) K/uL MPV (9.4-12.4) fL Immature Gran % (Auto) % Neut % (Auto) % Lymph % (Auto) % [place] % (Auto) % Eos % (Auto) % Baso % (Auto) % Neut # (Auto) (1.40-6.50) K/uL Lymph # (Auto) (1.2-3.4) K/uL [place] # (Auto) (0.11-0.59) K/uL Eos # (Auto) (0-0.50) K/uL Baso # (Auto) (0-0.2) K/uL Immature Gran # (Auto) (0.01-0.20) K/uL PT (9.0-12.0) Seconds INR (0.9-1.1) APTT (21.0-31.0) Seconds PTT Ratio POC Sodium 140 (135-144) mmol/L Sodium (136-145) mmol/L POC Potassium 3.6 (3.3-5.0) mmol/L Potassium (3.5-5.1) mmol/L POC Chloride 105 (101-112) mmol/L Chloride (98-107) mmol/L Carbon Dioxide (21-32) mmol/L POC Total CO2 25 (24-31) mmol/L Anion Gap (3-11) POC Anion Gap 14.0 L (16-25) mmol/L POC BUN 16 (7-18) mg/dl BUN (6-23) mg/dl Creatinine (0.6-1.2) mg/dl POC Creatinine 0.7 (0.6-1.3) mg/dl Est Cr Clr Drug Dosing ml/min Est GFR ( Amer) ml/min Est GFR (Non-Af Amer) ml/min BUN/Creatinine Ratio (10-20) Glucose (70-99(Fasting)) mg/dl POC Glucose (other) 104 H (70-99) mg/dl Estimat Average Glucose Hemoglobin A1c Calcium (8.6-10.3) mg/dl POC Ioniz Calcium Raya 1.31 (1.12-1.32) mmol/l Magnesium (1.7-2.4) mg/dl Total Bilirubin (0.2-1.0) mg/dl AST (13-39) U/L ALT (7-52) U/L Alkaline Phosphatase (34-104) U/L Troponin I High Sens (0-14) pg/ml Total Protein (6.0-8.3) gm/dl Albumin (3.4-5.0) gm/dl Globulin (2.5-4.0) gm/dl Albumin/Globulin Ratio (0.9-2) Triglycerides (0-150) mg/dl Cholesterol (0-200) mg/dl LDL Cholesterol, Calc mg/dl VLDL Cholesterol, Calc (0-30) mg/dl HDL Cholesterol mg/dl Cholesterol/HDL Ratio (0-5) HCG, Quant < 1 mIU/ml SARS-CoV-2, RNA, NAAT NEGATIVE (NEGATIVE) Blood Type Antibody Screen 12/16/22 12/16/22 12/16/22 Range/Units 18:44 18:44 18:44 WBC 9.77 (4.8-10.8) K/ul RBC 4.77 (4.20-5.40) M/uL Hgb 12.8 (12.0-16.0) g/dl POC Hgb (12.0-16.0) g/dl Hct 38.4 (37.0-47.0) % POC Hct (37-47) % MCV 80.5 (80.0-100.0) fL MCH 26.8 (25.0-34.0) pg MCHC 33.3 (32.0-36.0) g/dL RDW Std Deviation 42.2 (36.4-46.3) fL RDW Coeff of Arnie 14.3 (11.5-14.5) % Plt Count 248 (130-400) K/uL MPV 10.0 (9.4-12.4) fL Immature Gran % (Auto) 0.3 % Neut % (Auto) 66.9 % Lymph % (Auto) 23.0 % [place] % (Auto) 5.7 % Eos % (Auto) 3.7 % Baso % (Auto) 0.4 % Neut # (Auto) 6.53 H (1.40-6.50) K/uL Lymph # (Auto) 2.25 (1.2-3.4) K/uL [place] # (Auto) 0.56 (0.11-0.59) K/uL Eos # (Auto) 0.36 (0-0.50) K/uL Baso # (Auto) 0.04 (0-0.2) K/uL Immature Gran # (Auto) 0.03 (0.01-0.20) K/uL PT 10.3 (9.0-12.0) Seconds INR 0.9 (0.9-1.1) APTT 25.1 (21.0-31.0) Seconds PTT Ratio 0.9 POC Sodium (135-144) mmol/L Sodium 138 (136-145) mmol/L POC Potassium (3.3-5.0) mmol/L Potassium 3.6 (3.5-5.1) mmol/L POC Chloride (101-112) mmol/L Chloride 106 (98-107) mmol/L Carbon Dioxide 25 (21-32) mmol/L POC Total CO2 (24-31) mmol/L Anion Gap 7 (3-11) POC Anion Gap (16-25) mmol/L POC BUN (7-18) mg/dl BUN 14 (6-23) mg/dl Creatinine 0.72 (0.6-1.2) mg/dl POC Creatinine (0.6-1.3) mg/dl Est Cr Clr Drug Dosing 110.3 ml/min Est GFR ( Amer) 126.6 ml/min Est GFR (Non-Af Amer) 109.3 ml/min BUN/Creatinine Ratio 19.4 (10-20) Glucose 100 H (70-99(Fasting)) mg/dl POC Glucose (other) (70-99) mg/dl Estimat Average Glucose Hemoglobin A1c Calcium 10.5 H (8.6-10.3) mg/dl POC Ioniz Calcium Raya (1.12-1.32) mmol/l Magnesium 2.0 (1.7-2.4) mg/dl Total Bilirubin 0.4 (0.2-1.0) mg/dl AST 20 (13-39) U/L ALT 16 (7-52) U/L Alkaline Phosphatase 117 H (34-104) U/L Troponin I High Sens < 2.3 (0-14) pg/ml Total Protein 7.6 (6.0-8.3) gm/dl Albumin 4.7 (3.4-5.0) gm/dl Globulin 2.9 (2.5-4.0) gm/dl Albumin/Globulin Ratio 1.6 (0.9-2) Triglycerides (0-150) mg/dl Cholesterol (0-200) mg/dl LDL Cholesterol, Calc mg/dl VLDL Cholesterol, Calc (0-30) mg/dl HDL Cholesterol mg/dl Cholesterol/HDL Ratio (0-5) HCG, Quant mIU/ml SARS-CoV-2, RNA, NAAT (NEGATIVE) Blood Type Antibody Screen 12/16/22 Range/Units 18:44 WBC (4.8-10.8) K/ul RBC (4.20-5.40) M/uL Hgb (12.0-16.0) g/dl POC Hgb (12.0-16.0) g/dl Hct (37.0-47.0) % POC Hct (37-47) % MCV (80.0-100.0) fL MCH (25.0-34.0) pg MCHC (32.0-36.0) g/dL RDW Std Deviation (36.4-46.3) fL RDW Coeff of Arnie (11.5-14.5) % Plt Count (130-400) K/uL MPV (9.4-12.4) fL Immature Gran % (Auto) % Neut % (Auto) % Lymph % (Auto) % [place] % (Auto) % Eos % (Auto) % Baso % (Auto) % Neut # (Auto) (1.40-6.50) K/uL Lymph # (Auto) (1.2-3.4) K/uL [place] # (Auto) (0.11-0.59) K/uL Eos # (Auto) (0-0.50) K/uL Baso # (Auto) (0-0.2) K/uL Immature Gran # (Auto) (0.01-0.20) K/uL PT (9.0-12.0) Seconds INR (0.9-1.1) APTT (21.0-31.0) Seconds PTT Ratio POC Sodium (135-144) mmol/L Sodium (136-145) mmol/L POC Potassium (3.3-5.0) mmol/L Potassium (3.5-5.1) mmol/L POC Chloride (101-112) mmol/L Chloride (98-107) mmol/L Carbon Dioxide (21-32) mmol/L POC Total CO2 (24-31) mmol/L Anion Gap (3-11) POC Anion Gap (16-25) mmol/L POC BUN (7-18) mg/dl BUN (6-23) mg/dl Creatinine (0.6-1.2) mg/dl POC Creatinine (0.6-1.3) mg/dl Est Cr Clr Drug Dosing ml/min Est GFR ( Amer) ml/min Est GFR (Non-Af Amer) ml/min BUN/Creatinine Ratio (10-20) Glucose (70-99(Fasting)) mg/dl POC Glucose (other) (70-99) mg/dl Estimat Average Glucose Hemoglobin A1c Calcium (8.6-10.3) mg/dl POC Ioniz Calcium Raya (1.12-1.32) mmol/l Magnesium (1.7-2.4) mg/dl Total Bilirubin (0.2-1.0) mg/dl AST (13-39) U/L ALT (7-52) U/L Alkaline Phosphatase (34-104) U/L Troponin I High Sens (0-14) pg/ml Total Protein (6.0-8.3) gm/dl Albumin (3.4-5.0) gm/dl Globulin (2.5-4.0) gm/dl Albumin/Globulin Ratio (0.9-2) Triglycerides (0-150) mg/dl Cholesterol (0-200) mg/dl LDL Cholesterol, Calc mg/dl VLDL Cholesterol, Calc (0-30) mg/dl HDL Cholesterol mg/dl Cholesterol/HDL Ratio (0-5) HCG, Quant mIU/ml SARS-CoV-2, RNA, NAAT (NEGATIVE) Blood Type B Positive Antibody Screen NEGATIVE Medications Administered Current Inpatient Medications Acetaminophen (Acetaminophen 325 Mg Tab) 650 mg PO Q4H PRN PRN Reason: Pain or Fever Stop: 01/15/23 23:06 Last Admin: 12/17/22 00:34 Dose: 650 mg Amitriptyline HCl (Amitriptyline Hcl 25 Mg Tab) 25 mg PO HS SUSIE Stop: 01/16/23 20:59 Aspirin (Aspirin 81 Mg Ectab) 81 mg PO QAM SUSIE Stop: 01/16/23 08:59 Sodium Chloride (Nss 1000ml) 1,000 mls @ 100 mls/hr IV .Q10H SUSIE Stop: 12/17/22 19:06 Last Admin: 12/17/22 00:27 Dose: 100 mls/hr Potassium Chloride (K Javid / Wtr) 10 meq in 100 mls @ 100 mls/hr IV Q1H SUSIE Stop: 12/17/22 10:59 Miscellaneous Information (Pharmacist Discharge Med Rec Consult) 1 each N/A UD PRN PRN Reason: Consult Stop: 01/15/23 23:06 Nitroglycerin (Nitroglycerin Sl 0.4 Mg/Tab Tab) 0.4 mg SL Q5M PRN PRN Reason: Chest Pain Stop: 01/15/23 23:06 Polyethylene Glycol (Polyethylene (Miralax) 17 Gm Pack) 17 gm PO DAILY PRN PRN Reason: Constipation Stop: 01/15/23 23:06 Vitamin D (Cholecalciferol 400 Units 10 Mcg Tab) 800 units PO DAILY SUSIE Stop: 01/16/23 08:59
--- NOTE | 2022-12-17 09:04 | Electrocardiogram Report ---
Test Reason : Blood Pressure : / mmHG Vent. Rate : 067 BPM Atrial Rate : 067 BPM P-R Int : 154 ms QRS Dur : 080 ms QT Int : 378 ms P-R-T Axes : 045 -12 064 degrees QTc Int : 399 ms Normal sinus rhythm Normal ECG When compared with ECG of 20-APR-2022 19:39, No significant change was found Confirmed by Yann Morley ([id number]) on 12/17/2022 9:03:57 AM Referred By: REFERRED SELF Confirmed By:Yann Morley
[2022-12-17 09:12] LABS: Estimated Average Glucose 111 mg/dl; Hemoglobin A1C 5.5 % (4.5-5.6)
--- NOTE | 2022-12-17 09:41 | Neurology Consultation ---
Date of Consultation December 17, 2022 Assessment & Plan (1) Stroke-like symptoms: (2) PFO (patent foramen ovale): (3) Complicated migraine: Plan 36-year-old female with a history of aneurysmal atrial septum and small PFO and recurrent strokelike episode. Patient recently started baricitinib for alopecia areata. This medication may sometimes produce neurologic symptoms such as slurred speech, headache and weakness. For the time being, I would recommend that patient hold this medication. However, I am uncertain of any causal relationship in her case at this time. She has been taking daily low-dose aspirin and amitriptyline as an outpatient and follows with Dr. Haylie samano. Her MRI is unremarkable and negative for acute or subacute stroke. However, given her aneurysmal atrial septum and small PFO, I think it would be reasonable to switch from daily low-dose aspirin to clopidogrel 75 mg/day at this time. If she were to have additional strokelike episodes, would consider a referral to cardiology to discuss PFO closure. I would recommend checking an up-to-date venous Doppler to assess for DVT. She may continue with amitriptyline 25 mg at bedtime. However, going forward, it may be reasonable to consider switching from amitriptyline to verapamil which may be useful for prophylaxis of complicated migraine. Patient may follow-up with Dr. Haylie Galloway, local [facility] neurology. History of Present Illness Reason for Consultation: stroke like sxs Requesting Physician: Marie Attending Physician: Venkat Skinner MD History of Present Illness The patient is a 36-year-old female who presented to the emergency department yesterday with a complaint of perioral numbness and tongue as well as the left side of the face of sudden onset at around 5:45 in the evening. She has a history of similar strokelike episode last December and was seen by Dr. Haylie Galloway, [facility] neurology at that time. She was found to have a small PFO. She has been taking daily low-dose aspirin and amitriptyline at bedtime. History also notable for empty sella turcica, chronic sinusitis, vitamin B12 deficiency, iron deficiency and alopecia areata for which she started baricitinib within the past few months. She endorses occasional headache, no nausea or light sensitivity. She reports a low-grade frontal headache at this time, otherwise, the above sensory symptoms have resolved. She has been afebrile and modestly hypertensive. A CT of the head including CTA of the head and neck are unremarkable. A brain MRI is negative for acute or subacute process and is also unremarkable. I independently reviewed these images and agree with the findings as described by radiology. She does have a partially empty sella turcica, no hydrocephalus, no parenchymal disease. No flattening of the posterior aspects of the globes. No Chiari malformation. Labs reviewed. WBC 5.94, hemoglobin 11.3, hematocrit 33.2, MCV 78.3, platelet count 193, sodium 140, potassium 3.5, BUN 10, creatinine 0.63, glucose 100, hemoglobin A1c 5.5, calcium 9.3, magnesium 2.0, AST 20, ALT 16, triglycerides 160, cholesterol 119, LDL 48, VLDL 32, HDL 39. An electrocardiogram reveals a normal sinus rhythm. An echocardiogram completed last December revealed an aneurysmal atrial septum and small intra-atrial shunt or PFO. Allergies Allergy/AdvReac Type Severity Reaction Status Date / Time No Known Allergies Allergy Verified 12/29/21 19:10 Home Medications Medication Instructions Recorded Confirmed Type ferrous sulfate 325 mg (65 mg 325 mg PO DAILY@08 #60 tabs 02/22/19 12/29/21 Rx iron) tablet,delayed release cholecalciferol (vitamin D3) 10 800 unit PO DAILY 04/15/21 12/29/21 History mcg (400 unit) capsule (Vitamin D3) [id number] 1 mg 1 tab PO DAILY 04/15/21 12/29/21 History tablet aspirin 81 mg tablet,delayed 81 mg PO QAM #30 tabs 12/31/21 Rx release amitriptyline 25 mg tablet 25 mg PO HS 12/16/22 12/16/22 History baricitinib 4 mg tablet (Olumiant) 4 mg PO DAILY 12/16/22 12/16/22 History Patient History Medical History Pre-eclampsia hx (on ASA) Surgical History History of adenoidectomy Previous section 2017 (emergent)- ?spinal vs. epidural: good pain control 02/19/19 (repeat c/s)- SAB at L3/L4 (x1 attempt) at [facility] Family History Other No pertinent family history Social History Smoking Status: Unknown if ever smoked Second Hand Exposure: No; Do You Dip or Chew Tobacco: No; Hx Alcohol Use: No Hx Substance Use: No Preferred Language: Czech Communication Ability: Effective Communication Tools: IPad Business Change Manager Required: No Beliefs That Will Affect Care: None marital status: Current Living Situation: Family current occupational status: unemployed Other Information That Helps Us Care for You: No Feels Safe at Home: Yes Safety Concerns: Feels Safe At This Time Assistive Devices: None Review of Systems Constitutional: no fever and no chills Eyes: no blind spots and no diplopia Ear, Nose, Mouth, Throat: no hearing loss Respiratory: no cough and no dyspnea Cardiovascular: no chest pain and no palpitations Gastrointestinal: no nausea and no vomiting Genitourinary: no dysuria Musculoskeletal: no neck pain and no myalgia Integumentary: no rash and no lesions Neurologic: as per Subjective / HPI Psychiatric: no depression and no anxiety Hematologic / Lymphatic: no easy bleeding and no easy bruising Exam (Neuro) Constitutional: well developed Eyes: normal visual mendoza by confrontation, PERRL and EOM intact bilaterally Cardiovascular: Vessels: no carotid bruit Neurologic: Oriented to:: Person, Place and Time Memory: Short Term Intact and Remote Intact Attention: Span Intact and Concentration Intact Speech Fluency: negative Dysarthria or Dysfluency Fund of Knowledge: Current Events, Past History and Vocabulary Cranial Nerves: Normal II, III, IV, , VII, VIII, IX, X, XI and XII; Abnorm V (Relatively reduced sensation to light touch along the left side of the face noted) Motor Strength: Normal Lower Extremities and Normal Upper Extremities Motor Tone: Normal Lower Extremities and Normal Upper Extremities Muscle Bulk/Involuntary Movements: No Involuntary Movements; negative Muscle Atrophy Sensation: Light Touch Intact, Pain/Temperature Intact, Vibration Intact and Proprioception Intact Coordination: Normal; negative Limited Balance, Finger-Nose Abnormal or Heel- Douglass Abnormal Deep Tendon Reflexes: Rt Triceps: 2+, Lt Triceps: 2+, Rt Biceps: 2+, Lt Biceps: 2+, Rt Brachioradialis: 2+, Lt Brachioradialis: 2+, Rt Patellar: 2+, Lt Patellar: 2+, Rt Ankle: 2+ and Lt Ankle: 2+ Special Tests: negative Babinski Present Gait: Normal Station and Gait Results & Data Vital Signs (Past 12 Hours) Vital Signs Temp Pulse Pulse Resp BP BP BP 12/17/22 07:38 36.3 C L 56 L 16 118/77 12/16/22 23:04 56 L 12/17/22 03:27 36.4 C L 63 16 124/81 12/16/22 23:14 36.9 C 56 L 16 152/92 H 12/16/22 22:42 60 18 133/84 12/16/22 21:29 57 L 18 160/100 H Pulse Ox O2 Del Method 12/17/22 07:38 97 Room Air 12/16/22 23:04 12/17/22 03:27 98 Room Air 12/16/22 23:14 98 Room Air 12/16/22 22:42 98 Room Air 12/16/22 21:29 98 Room Air Coding Level of Care Code 38004 INT INP/OBS CARE MIN Diagnoses Stroke-like symptoms R29.90 PFO (patent foramen ovale) Q21.12 Complicated migraine G43.109
[2022-12-17] MEDS: POTASSIUM CHLORIDE / WTR 10 MEQ/100 ML PLCT IV SCH ×2 (09:44→11:21)
[2022-12-17] MEDS: ASPIRIN 81 MG ECTAB PO SCH (09:51)
[2022-12-17] MEDS: CHOLECALCIFEROL 400 UNITS 10 MCG TAB PO SCH (09:51)
--- NOTE | 2022-12-17 15:33 | Ultrasound Report ---
BILATERAL UPPER EXTREMITY VENOUS DOPPLER ULTRASOUND CLINICAL HISTORY: pfo, stroke -like symptoms COMPARISON STUDY: Bilateral upper extremity venous Doppler ultrasound December 31, 2021. TECHNIQUE: Sonography of the deep venous systems of both upper extremities was performed. FINDINGS: No deep venous thrombus is identified within the upper extremities. Superficial veins also appear patent. IMPRESSION: No deep venous thrombus within the upper extremities. ACT 112: Negative or not required by law. Electronically signed by: Mirza Helms M.D. 12/17/2022 3:31 PM
--- NOTE | 2022-12-17 15:33 | Ultrasound Report ---
BILATERAL LOWER EXTREMITY VENOUS DOPPLER CLINICAL HISTORY: pfo, stroke like symptoms COMPARISON STUDY: Bilateral lower extremity venous Doppler ultrasound December 31, 2021. TECHNIQUE: Sonography of the deep venous system of the bilateral lower extremities was performed. Co mpression and augmentation were evaluated. FINDINGS: The bilateral common femoral, superficial femoral and popliteal veins were compressible. A ugmentation was normal. Flow was shown within the deep calf vessels. IMPRESSION: No evidence of deep venous thrombus within the bilateral lower extremities. ACT 112: Negative or not required by law. Electronically signed by: Mirza Helms M.D. 12/17/2022 3:31 PM
[2022-12-17] MEDS ORDERED: AMITRIPTYLINE HCL 25 MG TAB PO SCH (21:00)
[2022-12-17] MEDS ORDERED: CALCIUM CARBONATE 500 MG CHEWABLE TAB PO PRN (21:20)
[2022-12-18 05:59] LABS: Basophils # (auto) 0.02 K/uL (0-0.2); Basophils % (auto) 0.3 %; Eosinophils # (auto) 0.27 K/uL (0-0.50); Eosinophils % (auto) 4.3 %; Hematocrit (blood only) 35.1 % (37.0-47.0); Hemoglobin 11.9 g/dl (12.0-16.0); Immature Granulocytes # (auto) 0.02 K/uL (0.01-0.20); Immature Granulocytes % (auto) 0.3 %; Lymphocytes # (auto) 1.67 K/uL (1.2-3.4); Lymphocytes % (auto) 26.7 %; Mean Corpuscular Hemoglobin 26.7 pg (25.0-34.0); Mean Corpuscular Hgb Conc 33.9 g/dL (32.0-36.0); Mean Corpuscular Volume 78.9 fL (80.0-100.0); Mean Platelet Volume 9.9 fL (9.4-12.4); Monocytes % (auto) 6.4 %; Neutrophils # (auto) 3.88 K/uL (1.40-6.50); Platelet Count 203 K/uL (130-400); RDW Coefficient of Variation 14.6 % (11.5-14.5); RDW Standard Deviation 41.2 fL (36.4-46.3); Red Blood Count 4.45 M/uL (4.20-5.40); White Blood Count 6.26 K/ul (4.8-10.8)
[2022-12-18 06:18] LABS: BUN Creatinine Ratio 15.6 (10-20); Calcium 10.1 mg/dl (8.6-10.3); Creatinine Clr Calc Pharmacy 126.5 ml/min; Est GFR (African American) 134.9 ml/min; Est GFR (Non-African American) 116.4 ml/min; Magnesium 1.8 mg/dl (1.7-2.4); Phosphorus 2.9 mg/dl (2.5-4.9); Potassium 3.8 mmol/L (3.5-5.1)
[2022-12-18] MEDS: ASPIRIN 81 MG ECTAB PO SCH (09:16)
[2022-12-18] MEDS: CHOLECALCIFEROL 400 UNITS 10 MCG TAB PO SCH (09:16)
--- NOTE | 2022-12-18 10:13 | Discharge Summary ---
Date of Service December 18, 2022 Admission HPI Per Admitting Provider 36-year-old female past medical history significant for primary empty sella syndrome, chronic sinusitis, vitamin B12 deficiency, iron deficiency anemia following with heme-onc, alopecia areata, history of severe preeclampsia during around March 2021, history of stroke with symptoms and work-up was unremarkable in the hospital the past and followed up with neurology. At the time noted to have small left PFO but no DVT in the upper or lower extremities. Had Zio patch which was unremarkable. She had anticoagulant work-up and was unremarkable except for slight increase in protein S as per neurology notes in epic. Neurology started on amitriptyline for possible migraine variant in July 2022. Patient was also started on barcitinib for alopecia Aretta couple of months ago as per . As per she stopped taking aspirin currently. Patient is ARAB speaking and can speak a little Lebanese. Most of the H&P got from the and previous records. Today around 5:45 PM patient noticed numbness around the mouth and the tongue and the left side of the face and she took a dose of aspirin and came to the hospital. Stroke alert was called and initial CT head, CTA head and neck were unremarkable. Patient also having headache. Her numbness is slightly better. She neurology did not recommend tPA. Advised to give fluids and magnesium and work-up with MRI scan in the hospital. Patient is has still some numbness and numbness in the left side of face and and her mouth is slightly deviated to the left side. Tongue is slightly deviated to left side. Speech is okay. Did not try any swallowing in the ER. Able to ambulate in the ER to the bathroom. Denies any blurred visions or double visions. No earaches or runny nose. Feels very dizzy. No nausea. No abdominal pain. No chest pain or shortness of breath. Normal bowel and bladder movements. When she came in she was having some chest discomfort and palpitations but that got resolved now. Past medical history as mentioned above Past surgical history , removal of adenoids Social history no smoking, no alcohol use, no drug use. Family history father had a stroke in his 60s. Admission Exam Per Admitting Provider General- Not in acute distress Head- atraumatic Eyes- PERRL, EOMI, ENT- oropharynx clear Neck- supple, no JVD, Lungs- clear to auscultation and percussion Heart- regular rhythm; no murmur, no gallop, no rub appreciated Abdomen- normal bowel sounds, soft, nontender, no masses or hepatosplenomegaly Extremities- no pretibial edema, no erythema seen. Neuro- alert, oriented x 3; PERRL, EOMI;Speech is ok. Insight ok. Numbness in left side of face, left side mouth and tounge deviation. power 5/5 in all extremities, no pronator drift. Skin- warm & dry Principal Diagnosis Stroke-like symptoms: PFO (patent foramen ovale): Complicated migraine: Discharge Exam General- Not in acute distress Head- atraumatic Eyes- PERRL, EOMI, ENT- oropharynx clear Neck- supple, no JVD, Lungs- clear to auscultation and percussion Heart- regular rhythm; no murmur Abdomen- normal bowel sounds, soft, nontender Extremities- no pretibial edema, no erythema seen. Neuro- alert, oriented x 3; PERRL, EOMI; Speech is clear but slow. Answers appropriately. No facial asymmetry -this has resolved. No tongue deviation- this has also resolved. Moves all extremities without difficulty. Skin- warm & dry Discharge Data Allergies Allergy/AdvReac Type Severity Reaction Status Date / Time No Known Allergies Allergy Verified 12/29/21 19:10 Consultations 12/16/22 20:16 ED Decision to Admit Stat 12/17/22 08:00 Consult Neurology Routine Ordered Studies 12/16/22 18:36 CT angio head w con Stat CT angio neck with con Stat CT head/brain wo con Stat 12/16/22 23:07 MR brain wo/w con Urgent 12/17/22 11:18 US venous doppler LE BI Routine 12/17/22 11:19 US venous doppler UE BI Routine Hospital Course (1) Stroke-like symptoms: 76-year-old female presents with strokelike symptoms. Strokelike symptoms As perioral numbness and left-sided face numbness Slight deviation of mouth left side Stroke alert was called CT head, CTA head and neck are unremarkable IV magnesium and fluids were given as per [facility] recommendations Patient took aspirin before coming to the hospital Plan to monitor in the hospital MRI brain obtained - No acute findings in the head/brain. Echo -normal LV wall thickness. No regional wall motion abnormalities noted. EF 60 to 65%. RV is normal in size and function. There is no significant valve disease. The interatrial septum was previously assessed with the administration of agitated saline contrast on December 2021. Recent finding reported at the time of an aneurysmal with small interatrial shunt. This was not repeated at the time of the present study. 12/17 currently patient reports perioral numbness to be improved. No facial asymmetry no weakness in extremities. Discussed with neurology over the phone. Patient was not taking aspirin on daily basis, only took 1 prior to coming to the hospital. Recommend to continue with daily aspirin. Also recommend to obtain Dopplers to rule out DVTs given her PFO. Dopplers ordered. Rest of the recommendations as below. Update: Dopplers negative for DVT Neurology consulted - Pt w/ aneurysmal atrial septum and small PFO and recurrent strokelike episode. Patient recently started baricitinib for alopecia areata. This medication may sometimes produce neurologic symptoms such as slurred speech, headache and weakness. For the time being, I would recommend that patient hold this medication. However, I am uncertain of any causal relationship in her case at this time. She has been taking amitriptyline as an outpatient and follows with Dr. Haylie Galloway. Her MRI is unremarkable and negative for acute or subacute stroke. If she were to have additional strokelike episodes, would consider a referral to cardiology to discuss PFO closure. I would recommend checking an up-to-date venous Doppler to assess for DVT. She may continue with amitriptyline 25 mg at bedtime. However, going forward, it may be reasonable to consider switching from amitriptyline to verapamil which may be useful for prophylaxis of complicated migraine. Patient may follow-up with Dr. Haylie Galloway, local [facility] neurology. Speech and PT OT evaluation Patient had strokelike symptoms in the past and her work-up was unremarkable as mentioned in H&P Vit B12 level obtained - 328 (wnl) Lyme panel ordered - pending Close monitoring in telemetry History of alopecia areata We will hold baricitinib for now - and recommend to stop on discharge History of anemia Hemoglobin stable - cont. supplements - cont. to follow up as outpt Migraine variant Continue amitriptyline Dispo - home w/ HH (2) Perioral numbness: Total Time Total Time Spent Total Time Spent (In Minutes): 40 Discharge Plan Discharge Items Patient Disposition: Home - Self-Care Reason For Visit: STROKE LIKE SYMPTOMS Discharge Diagnosis: Stroke-like symptoms: PFO (patent foramen ovale): Complicated migraine: Activity: Per Instructions section Non-emergency contact: Primary Care Provider and Neurologist Call non-emergency contact if: you have any medication questions and your symptoms worsen Follow-up/Referrals: Alisson Piedra MD [Primary Care Provider] - Diet: Regular Addtl Attending Provider Instructions: Follow up with your primary care doctor and neurologist. You should follow up with primary care physician within 1 week. As discussed, recommend to take aspirin 81 mg every day. Please stop using medication for alopecia - baricitinib, as it can be possibly causing your symptoms. Continue taking all your vitamin supplements as you have been at home. Pending Studies at Discharge: Yes Studies:: Lyme disease test Stand-Alone Forms: My [employer], Smoking Cessation Medications and DC Order Prescriptions: Continued ferrous sulfate 325 mg (65 mg iron) Tablet,Delayed Release (Dr/Ec) 325 mg PO DAILY@08 Qty: 60 0RF aspirin 81 mg Tablet,Delayed Release (Dr/Ec) 81 mg PO QAM Qty: 30 0RF amitriptyline 25 mg tablet 25 mg PO HS cholecalciferol (vitamin D3) [Vitamin D3] 10 mcg (400 unit) Capsule 800 unit PO DAILY [id number] 1 mg Tablet 1 tab PO DAILY Discontinued Olumiant 4 mg tablet 4 mg PO DAILY Discharge Orders: Discharge Order (Routine); Ordered 12/18/22 Ordered By: Venkat Skinner Admission Data Admit Date/Time: 12/16/22 21:27 Attending Provider: Venkat Skinner Admit Provider: Xavi Salazar Primary Care Provider: Alisson Piedra Other Providers: Xavi Salazar ; Farooq Garvin ; Giacomo Bowles ; Tanya Davenport ; Dorys Angeles ; Haylie Weaver ; Luiz To Kathleen ; Ruddy Gomes ; Ramin Ames ; Yann Murphy ; Felicia Dove ; Yohana Flores ; Gabriele Hernandez ; Yinka Mckeon ; Timo Partida ; Juvenal Spann ; Jesus Alberto,Laurence
[2022-12-18] MEDS ORDERED: STROKE PATIENT DISCHARGE STA (10:16)
[2022-12-18 12:25] LABS: Lyme Ab IgG w/WB Rflx Negative (Negative); Lyme Ab IgM w/WB Rflx Negative (Negative)
== END 2022-12-18 12:36 | disposition home or self-care (01) | DRG 92 ==
LOC: ED 18:26 → 2S 21:27